=== PATIENT | female | born 1945 | race Caucasian/White ===

== ENCOUNTER 2021-07-19 06:09 | Inpatient (IN) | payer MEDICARE ==
[~2021-07-19] VITALS: Ht 167.6 cm; Wt 70.0 kg
--- NOTE | 2021-07-19 06:51 | PHYS DOC ---
Past Medical History Past Medical History: A-Fib, High Cholesterol, Hypertension, Hypothyroid Past Surgical History: No Surgical History General Adult EDM: Chief Complaint: MECHANICAL FALL HPI: HPI: Patient is a 76 year old female with history of A. fib, HTN, HLD, hypothyroidism who presents with a fall from [facility] facility. Reportedly got up to go to the restroom and became dizzy. Lost her balance and fell to her right. Fell onto her right hip and shoulder, where she is having the majority of her pain. No longer complains of dizziness. States she did not pass out prior to the fall or afterwards. She does not think she struck her head. Denies being on blood thinners. Denies confusion, headache, nausea/vomiting. Mild neck discomfort, no paresthesias or upper extremity weakness, although she is not entirely sure about her right arm due to pain at her shoulder. Med list shows she is on metoprolol tartrate 25 mg twice daily Review of Systems: Review of Systems: Constitutional: Denies fever or chills. [] Eyes: Denies change in visual acuity. [] HENT: Denies nasal congestion or sore throat. [] Respiratory: Denies cough or shortness of breath. [] Cardiovascular: Denies chest pain or edema. [] GI: Denies abdominal pain, nausea, vomiting, bloody stools or diarrhea. [] : Denies dysuria. [] Musculoskeletal: Reports right shoulder, right hip, and right rib pain. Denies back pain or joint pain. [] Integument: Denies rash. [] Neurologic: Reports now resolved dizziness. Denies headache, focal weakness or sensory changes. [] Endocrine: Denies polyuria or polydipsia. [] Lymphatic: Denies swollen glands. [] Psychiatric: Denies depression or anxiety. [] Heart Score: C/O Chest Pain: No Allergies: Allergies: Allergies Coded Allergies Type Severity Reaction Last Updated Verified Penicillins Allergy Intermediate 07/19/21 Yes Sulfa (Sulfonamide Antibiotics) Allergy Intermediate 07/19/21 Yes Physical Exam: PE: Constitutional: no acute distress, non-toxic appearance. [] HENT: Normocephalic, atraumatic, nares clear, no facial trauma, no blood in mouth. no malocclusion. Neck: mild midline ttp in cervical spine. Cardiovascular: Bradycardic, regular Lungs & Thorax: breath sounds present bilaterally Abdomen: mild diffuse abd tenderness to palpation (she blames this on full bladder) Skin: Warm, dry, no erythema, no rash. [] Back: No tenderness, no CVA tenderness. [] Extremities: Tenderness over proximal humerus, olecrannon on the right. some tenderness over greater trochanter on right. R shoulder with limited ROM and severe pain with PROM. R hip was able to be flexed and log-rolled without significant discomfort, although she was hesitant to move it. DP and radial pulses 2+ on right. Fingers/toes are warm, well perfused. Neurologic: Alert and oriented X 3. RUE dust handler strength, wrist extension, finger abduction is intact. Moving all other extremities with grossly normal strength. Current Patient Data: Vital Signs: Vital Signs Date Time Temp Pulse Resp B/P (MAP) Pulse Ox O2 Delivery O2 Flow Rate FiO2 07/19/21 06:19 98.1 44 20 145/64 (91) 98 Room Air 98.1 EKG: EKG: Sinus bradycardia. Rate 44. [] Radiology/Procedures: Radiology/Procedures: [] Impression: [facility] [address] [place] [address] IMAGING REPORT Signed PATIENT: MARK HERNANDEZ ACCOUNT: [id number] : 1945 LOCATION: ER AGE: 76 SEX: F EXAM STATUS: REG ER ORD. PHYSICIAN: POLINA URIBE MD REASON: fall, right rib pain, abd pain, pelvic pain, r shoulder PROCEDURE: CT CHEST ABD PELVIS W/CONTRAST EXAMINATION: CT CHEST+ABD+PELVIS W CLINICAL HISTORY: Fall, right rib pain, abd pain, pelvic pain, right shoulder pain TECHNIQUE: CT of the chest performed with IV contrast, scanning from the thoracic inlet to the upper abdomen. CT of the abdomen and pelvis performed with IV contrast, scanning from just above the dome of the diaphragm to the symphysis pubis. CT Dose Reduction Employed: One or more of the following individualized dose reduction techniques were utilized for this examination: 1. Automated exposure control 2. Adjustment of the mA and/or kV according to patient size 3. Use of iterative reconstruction technique. COMPARISON: None FINDINGS: CHEST: Lung Parenchyma and Pleura: Small left pleural effusion with mild basilar calcified pleural plaques. Trace right pleural effusion. Overlying airspace disease, greater on the left and likely related to atelectasis. Peripherally predominant reticulation in the right greater than left lungs. Lower Neck, Mediastinum, and Heart: Thyroid gland not visualized. Enlarged right paratracheal lymph nodes measuring up to 15 mm in short axis. Several additional prominent but nonenlarged mediastinal lymph nodes. Thoracic aorta within normal limits. Questionable eccentric thrombus versus ill-defined hilar density abutting the vasculature in the region of the left lower lobe pulmonary artery near its branch point. Mild cardiomegaly. Bones and Soft Tissues: Mild compression deformity in the T8 superior endplate. Remote anterolateral left fifth-seventh rib fracture deformities. ABDOMEN/PELVIS: Liver: Unremarkable. Biliary: Moderately distended gallbladder. Spleen: Unremarkable. Pancreas: Unremarkable. Adrenals: Unremarkable. Kidneys: Bilateral renal cortical atrophy. GI tract: No bowel dilation or definite wall thickening. Moderate colonic diverticulosis without evidence of acute diverticulitis. Appendix within normal limits. Moderate hiatal hernia. Vasculature: Arterial atherosclerotic calcification without aneurysm. Pelvis: Minimally filled urinary bladder. Uterus and adnexa unremarkable on limited evaluation. 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 Multilevel degenerative changes in the lumbar spine. Partially visualized subcutaneous stippled densities in the anterior left thigh, nonspecific. IMPRESSION: CHEST: Questionable chronic thrombus in the left lower lobe pulmonary artery versus ill-defined perivascular hilar density as described, correlate clinically. Small left pleural effusion with basilar calcified pleural plaques, possibly a chronic effusion. Trace right pleural effusion. Enlarged mediastinal lymph nodes, nonspecific. Mild T8 compression deformity, possibly remote but cannot exclude an acute compression fracture. Nonemergent/outpatient MRI could be obtained for further evaluation if indicated. ABDOMEN/PELVIS: No evidence of acute abdominopelvic abnormality. Moderate to marked degenerative changes left hip with avascular necrosis and mild articular surface collapse in the left femoral head. Electronically signed by: Bridger Angeles DO (07/19/2021 8:57 AM) [facility] DICTATED and SIGNED BY: BRIDGER ANGELES DO DATE: 07/19/[id number] [facility] [address] [place] [address] IMAGING REPORT Signed PATIENT: MARK HERNANDEZ ACCOUNT: [id number] : 1945 LOCATION: ER AGE: 76 SEX: F EXAM STATUS: PRE ER ORD. PHYSICIAN: POLINA URIBE MD REASON: fall PROCEDURE: CT HEAD AND CERVICAL SPINE WO EXAMINATION: CT HEAD AND C-SPINE WO CLINICAL HISTORY: Fall. TECHNIQUE: Serial axial images without IV contrast were obtained from the vertex to the foramen magnum. Artificial intelligence software analysis also performed utilizing [employer]. CT of the cervical spine without IV contrast. Spiral, high resolution axial images were obtained from the skull base to the cervicothoracic junction with sagittal and coronal planar reconstructions. CT Dose Reduction Employed: One or more of the following individualized dose reduction techniques were utilized for this examination: 1. Automated exposure control 2. Adjustment of the mA and/or kV according to patient size 3. Use of iterative reconstruction technique. COMPARISON: None FINDINGS: BRAIN: Acute Change: No evidence of an acute contusion or other acute parenchymal process. Hemorrhage: No evidence of acute intracranial hemorrhage. Mass Lesion/Mass Effect: No evidence of intracranial mass or extraaxial fluid collection. No significant mass effect. Parenchyma: Mild generalized volume loss. Parenchyma otherwise within normal limits for age. Ventricles: Ventricles within normal limits for age. Normal variant persistent cavum septum pellucidum. Paranasal Sinuses and Skull Base: Minimal secretions in the right maxillary sinus. No evidence of acute calvarial fracture. C-SPINE: Alignment: Normal anatomic alignment. Osseous Structures: No evidence of acute fracture or spondylolisthesis. Degenerative Changes: Mild to moderate multilevel degenerative disc disease, greatest in the mid to lower cervical spine. Mild to moderate multilevel neural foraminal narrowing and facet arthropathy. No evidence of high-grade osseous spinal stenosis. Cervical Soft Tissues: No prevertebral soft tissue swelling. Vascular calcifications. IMPRESSION: BRAIN: No evidence of acute intracranial abnormality. C-SPINE: No evidence of acute osseous abnormality involving the cervical spine. Multilevel degenerative findings as described. Electronically signed by: Bridger Angeles DO (07/19/2021 8:18 AM) [facility] DICTATED and SIGNED BY: BRIDGER ANGELES DO DATE: 07/19/[id number] [facility] [address] [place] [address] IMAGING REPORT Signed PATIENT: MARK HERNANDEZ ACCOUNT: [id number] : 1945 LOCATION: ER AGE: 76 SEX: F EXAM STATUS: REG ER ORD. PHYSICIAN: POLINA URIBE MD REASON: fall, right shoulder pain PROCEDURE: HIP LEFT 2V WITH PELVIS EXAMINATION: XR BILATERAL HIP (WITH OR WITHOUT PELVIS) LEFT 2 VIEWS CLINICAL HISTORY: Fall, right hip pain. TECHNIQUE: XR BILATERAL HIP (WITH OR WITHOUT PELVIS) LEFT 2 VIEWS COMPARISON: CT chest/abdomen/pelvis 07/19/2021 FINDINGS/ IMPRESSION: No evidence of acute fracture. Moderate to marked degenerative changes in the left hip with avascular necrosis and minimal articular surface collapse in the femoral head, better appreciated on comparison CT. Minimal degenerative changes right hip. Pubic symphysis and SI joints maintained. Probable partially calcified lymph nodes in the pelvis and partially visualized heterogeneous calcification in the left thigh, better appreciated on comparison CT. Electronically signed by: Bridger Angeles DO (07/19/2021 9:25 AM) [facility] DICTATED and SIGNED BY: BRIDGER ANGELES DO DATE: 07/19/[id number] [facility] [address] [place] [address] IMAGING REPORT Signed PATIENT: MARK HERNANDEZ ACCOUNT: [id number] : 1945 LOCATION: ER AGE: 76 SEX: F EXAM STATUS: REG ER ORD. PHYSICIAN: POLINA URIBE MD REASON: fall, right shoulder pain PROCEDURE: SHOULDER 2+V RIGHT EXAMINATION: XR SHOULDER_RIGHT 2+ VIEWS CLINICAL HISTORY: Fall right shoulder pain. TECHNIQUE: XR SHOULDER_RIGHT 2+ VIEWS COMPARISON: None FINDINGS/ IMPRESSION: Slightly oblique fracture through the proximal humeral metadiaphysis with foreshortening and apex anteromedial angulation. Humeral head appears superiorly dislocated relative to the glenoid on AP view but is less convincing on the scapular Y view. Mild to moderate hypertrophic acromioclavicular degenerative changes. Electronically signed by: Bridger Angeles DO (07/19/2021 9:20 AM) [facility] DICTATED and SIGNED BY: BRIDGER ANGELES DO DATE: 07/19/[id number] [facility] [address] [place] [address] IMAGING REPORT Signed PATIENT: MARK HERNANDEZ ACCOUNT: [id number] : 1945 LOCATION: ER AGE: 76 SEX: F EXAM STATUS: REG ER ORD. PHYSICIAN: POLINA URIBE MD REASON: fall, elbow pain PROCEDURE: ELBOW RIGHT 3V EXAMINATION: XR ELBOW COMPLETE_RIGHT 3+ VIEWS CLINICAL HISTORY: Fall, elbow pain. TECHNIQUE: XR ELBOW COMPLETE_RIGHT 3+ VIEWS COMPARISON: None FINDINGS/ IMPRESSION: Joint spaces and alignment maintained. No acute fracture. No joint effusion. Soft tissue swelling along the dorsal aspect of the proximal forearm. Electronically signed by: Bridger Angeles DO (07/19/2021 9:21 AM) [facility] DICTATED and SIGNED BY: BRIDGER ANGELES DO DATE: 07/19/[id number] 0 Course & Med Decision Making: Course & Med Decision Making Pertinent Labs and Imaging studies reviewed. (See chart for details) Patient is a 76-year-old female who presents from a nursing facility after a fall resulting from a dizzy spell. On arrival is in sinus bradycardia, rate in the 40s, but other vital signs are stable. She is on metoprolol which may be contributing to her bradycardia, and her potassium was found to be slightly low. This was repleted. Extensive traumatic work-up revealed only a right proximal humerus fracture. Patient was placed in sling. Orthopedics was consulted routinely, although very likely non-operative. Given her symptomatic bradycardia patient was admitted for further management. Dragon Disclaimer: Dragon Disclaimer: This electronic medical record was generated, in whole or in part, using a voice recognition dictation system. Departure Departure Impression: Primary Impression: Proximal humerus fracture Additional Impressions: Symptomatic bradycardia Hypokalemia Disposition: 09 ADMITTED INPATIENT Admitting Physician: Madi. Newton Condition: STABLE POLINA URIBE MD Jul 19, 2021 06:51
[2021-07-19 07:21] LABS: BASO # 0.1 x10^3/uL (0.0-0.2); BASO % 1 % (0-3); CALCIUM 7.5 mg/dL (8.5-10.1); CREATININE 1.1 mg/dL (0.6-1.0); EOS # 0.3 x10^3/uL (0.0-0.7); EOS % 5 % (0-3); GFR 48.3; HEMATOCRIT 36.1 % (36.0-47.0); HEMOGLOBIN 11.6 g/dL (12.0-15.5); LYMPH % 15 % (24-48); MEAN CORPUSCULAR HEMOGLOBIN 27 pg (25-35); MEAN CORPUSCULAR HGB CONC 32 g/dL (31-37); MEAN CORPUSCULAR VOLUME 84 fL (79-100); MONO # 0.5 x10^3/uL (0.0-1.1); MONO % 7 % (0-9); NEUT % 73 % (31-73); PLATELET COUNT 324 x10^3/uL (140-400); POTASSIUM 3.3 mmol/L (3.5-5.1); RED BLOOD COUNT 4.28 x10^6/uL (3.50-5.40); RED CELL DISTRIBUTION WIDTH 20.2 % (11.5-14.5); WHITE BLOOD COUNT 6.9 x10^3/uL (4.0-11.0)
[2021-07-19] MEDS ORDERED: IOHEXOL 300 MG/ML 100ML VIAL. IV ONE (07:30)
[2021-07-19] MEDS ORDERED: MORPHINE SULFATE 2 MG/ML INJ. IVP ONE ×2 (07:30→08:30)
[2021-07-19] MEDS ORDERED: CONTRAST GIVEN. MC PRN (07:30)
--- NOTE | 2021-07-19 08:20 | RAD ---
EXAMINATION: CT HEAD AND C-SPINE WO CLINICAL HISTORY: Fall. TECHNIQUE: Serial axial images without IV contrast were obtained from the vertex to the foramen magnum. [employer] software analysis also performed utilizing [employer]. CT of the cervical spine without IV contrast. Spiral, high resolution axial images were obtained from the skull base to the cervicothoracic junction with sagittal and coronal planar reconstructions. CT Dose Reduction Employed: One or more of the following individualized dose reduction techniques wer e utilized for this examination: 1. Automated exposure control 2. Adjustment of the mA and/or kV ac cording to patient size 3. Use of iterative reconstruction technique. COMPARISON: None FINDINGS: BRAIN: Acute Change: No evidence of an acute contusion or other acute parenchymal process. Hemorrhage: No evidence of acute intracranial hemorrhage. Mass Lesion/Mass Effect: No evidence of intracranial mass or extraaxial fluid collection. No signific ant mass effect. Parenchyma: Mild generalized volume loss. Parenchyma otherwise within normal limits for age. Ventricles: Ventricles within normal limits for age. Normal variant persistent cavum septum pellucidu m. Paranasal Sinuses and Skull Base: Minimal secretions in the right maxillary sinus. No evidence of acu te calvarial fracture. C-SPINE: Alignment: Normal anatomic alignment. Osseous Structures: No evidence of acute fracture or spondylolisthesis. Degenerative Changes: Mild to moderate multilevel degenerative disc disease, greatest in the mid to l ower cervical spine. Mild to moderate multilevel neural foraminal narrowing and facet arthropathy. No evidence of high-grade osseous spinal stenosis. Cervical Soft Tissues: No prevertebral soft tissue swelling. Vascular calcifications. IMPRESSION: BRAIN: No evidence of acute intracranial abnormality. C-SPINE: No evidence of acute osseous abnormality involving the cervical spine. Multilevel degenerative findings as described. Electronically signed by: Bridger Quiroz DO (07/19/2021 8:18 AM) [facility]
[2021-07-19] MEDS: POTASSIUM CHLORIDE 10MEQ 100 ML IV SCH ×3 (08:53→19:09)
--- NOTE | 2021-07-19 09:00 | RAD ---
EXAMINATION: CT CHEST+ABD+PELVIS W CLINICAL HISTORY: Fall, right rib pain, abd pain, pelvic pain, right shoulder pain TECHNIQUE: CT of the chest performed with IV contrast, scanning from the thoracic inlet to the upper abdomen. CT of the abdomen and pelvis performed with IV contrast, scanning from just above the dome o f the diaphragm to the symphysis pubis. CT Dose Reduction Employed: One or more of the following individualized dose reduction techniques wer e utilized for this examination: 1. Automated exposure control 2. Adjustment of the mA and/or kV ac cording to patient size 3. Use of iterative reconstruction technique. COMPARISON: None FINDINGS: CHEST: Lung Parenchyma and Pleura: Small left pleural effusion with mild basilar calcified pleural plaques. Trace right pleural effusion. Overlying airspace disease, greater on the left and likely related to a telectasis. Peripherally predominant reticulation in the right greater than left lungs. Lower Neck, Mediastinum, and Heart: Thyroid gland not visualized. Enlarged right paratracheal lymph n odes measuring up to 15 mm in short axis. Several additional prominent but nonenlarged mediastinal ly mph nodes. Thoracic aorta within normal limits. Questionable eccentric thrombus versus ill-defined hi lar density abutting the vasculature in the region of the left lower lobe pulmonary artery near its b ranch point. Mild cardiomegaly. Bones and Soft Tissues: Mild compression deformity in the T8 superior endplate. Remote anterolateral left fifth-seventh rib fracture deformities. ABDOMEN/PELVIS: Liver: Unremarkable. Biliary: Moderately distended gallbladder. Spleen: Unremarkable. Pancreas: Unremarkable. Adrenals: Unremarkable. Kidneys: Bilateral renal cortical atrophy. GI tract: No bowel dilation or definite wall thickening. Moderate colonic diverticulosis without evid ence of acute diverticulitis. Appendix within normal limits. Moderate hiatal hernia. Vasculature: Arterial atherosclerotic calcification without aneurysm. Pelvis: Minimally filled urinary bladder. Uterus and adnexa unremarkable on limited evaluation. Bones/Soft Tissues: Moderate to marked degenerative changes in the left hip with avascular necrosis i n the left femoral head and associated articular surface collapse measuring up to 1-2 mm. Multilevel degenerative changes in the lumbar spine. Partially visualized subcutaneous stippled densities in the anterior left thigh, nonspecific. IMPRESSION: CHEST: Questionable chronic thrombus in the left lower lobe pulmonary artery versus ill-defined perivascular hilar density as described, correlate clinically. Small left pleural effusion with basilar calcified pleural plaques, possibly a chronic effusion. Trac e right pleural effusion. Enlarged mediastinal lymph nodes, nonspecific. Mild T8 compression deformity, possibly remote but cannot exclude an acute compression fracture. None mergent/outpatient MRI could be obtained for further evaluation if indicated. ABDOMEN/PELVIS: No evidence of acute abdominopelvic abnormality. Moderate to marked degenerative changes left hip with avascular necrosis and mild articular surface c ollapse in the left femoral head. Electronically signed by: Bridger Quiroz DO (07/19/2021 8:57 AM) [facility]
[2021-07-19 09:23] LABS: BILIRUBIN,URINE NEGATIVE (NEG); CLARITY,URINE CLOUDY; COLOR,URINE YELLOW; NITRITE,URINE NEGATIVE (NEG); PROTEIN,URINE 100 mg/dL (NEG-TRACE); UROBILINOGEN,URINE 0.2 mg/dL (0.2 mg/dL)
--- NOTE | 2021-07-19 09:23 | RAD ---
EXAMINATION: XR SHOULDER_RIGHT 2+ VIEWS CLINICAL HISTORY: Fall right shoulder pain. TECHNIQUE: XR SHOULDER_RIGHT 2+ VIEWS COMPARISON: None FINDINGS/ IMPRESSION: Slightly oblique fracture through the proximal humeral metadiaphysis with foreshortening and apex ant eromedial angulation. Humeral head appears superiorly dislocated relative to the glenoid on AP view b ut is less convincing on the scapular Y view. Mild to moderate hypertrophic acromioclavicular degener ative changes. Electronically signed by: Bridger Quiroz DO (07/19/2021 9:20 AM) [facility]
--- NOTE | 2021-07-19 09:24 | RAD ---
EXAMINATION: XR ELBOW COMPLETE_RIGHT 3+ VIEWS CLINICAL HISTORY: Fall, elbow pain. TECHNIQUE: XR ELBOW COMPLETE_RIGHT 3+ VIEWS COMPARISON: None FINDINGS/ IMPRESSION: Joint spaces and alignment maintained. No acute fracture. No joint effusion. Soft tissue swelling isacc ng the dorsal aspect of the proximal forearm. Electronically signed by: Bridger Quiroz DO (07/19/2021 9:21 AM) [facility]
--- NOTE | 2021-07-19 09:27 | RAD ---
EXAMINATION: XR BILATERAL HIP (WITH OR WITHOUT PELVIS) LEFT 2 VIEWS CLINICAL HISTORY: Fall, right hip pain. TECHNIQUE: XR BILATERAL HIP (WITH OR WITHOUT PELVIS) LEFT 2 VIEWS COMPARISON: CT chest/abdomen/pelvis 07/19/2021 FINDINGS/ IMPRESSION: No evidence of acute fracture. Moderate to marked degenerative changes in the left hip with avascular necrosis and minimal articular surface collapse in the femoral head, better appreciated on compariso n CT. Minimal degenerative changes right hip. Pubic symphysis and SI joints maintained. Probable part ially calcified lymph nodes in the pelvis and partially visualized heterogeneous calcification in the left thigh, better appreciated on comparison CT. Electronically signed by: Bridger Quiroz DO (07/19/2021 9:25 AM) [facility]
[2021-07-19] MEDS ORDERED: ONDANSETRON PF 4 MG/2 ML VIAL. IVP PRN (09:30)
[2021-07-19] MEDS ORDERED: MORPHINE SULFATE 2 MG/ML INJ. IVP PRN (09:45)
[2021-07-19] MEDS: MORPHINE SULFATE 2 MG/ML INJ. IVP PRN ×2 (09:56→22:30)
[2021-07-19 09:57] LABS: WBC,URINE >40 /HPF (0-4)
[2021-07-19 09:58] LABS: BACTERIA,URINE MANY /HPF (0-FEW)
[2021-07-19 10:30] VITALS: BP 134/62
[2021-07-19 11:15] LABS: ANISOCYTOSIS PRESENT; PLT ESTIMATE ADEQUATE (ADEQUATE)
[2021-07-19] MEDS: ACETAMINOPHEN 325 MG TABLET. PO PRN (12:04)
[2021-07-19 14:57] VITALS: BP 113/56
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
[2021-07-19] MEDS: oxyCODONE/APAP 5/325 1 TAB TABLET PO PRN ×2 (16:56→20:20)
[2021-07-19] MEDS ORDERED: POLY2500 PO (17:22)
[2021-07-19] MEDS ORDERED: SERT50TA PO (17:22)
[2021-07-19] MEDS ORDERED: ATOR20TA58 PO (17:22)
[2021-07-19] MEDS ORDERED: GABA300C18 PO (17:22)
[2021-07-19] MEDS ORDERED: LACT20SO PO (17:22)
[2021-07-19] MEDS ORDERED: METO25TA4 PO (17:22)
[2021-07-19] MEDS ORDERED: LEVO125T5 PO (17:22)
[2021-07-19] MEDS ORDERED: TRAZ-118 PO (17:22)
[2021-07-19] MEDS ORDERED: MEGE400O4 PO (17:22)
[2021-07-19] MEDS ORDERED: AMIO200T53 PO (17:22)
[2021-07-19] MEDS ORDERED: CLINDAMYCIN 900MG PREMIX 50 ML IV PRN (18:00)
[2021-07-19 19:49] VITALS: BP 138/61
--- NOTE | 2021-07-19 19:55 | EKG ---
[facility] [address] [place] [address] Test Date: 2021-07-19 Test Time: 08:13:59 Pat Name: MARK HERNANDEZ Department: Room: [facility] Gender: F Rand Tacker: : 1945 Requested By: POLINA URIBE Order Number: [id number] Reading MD: Isiah Sheikh Measurements Intervals [place] Rate: 44 P: 49 NE: 170 QRS: 28 QRSD: 86 T: 41 QT: 612 QTc: 523 Interpretive Statements SINUS BRADYCARDIA PROLONGED QT Electronically Signed On 07-20-2021 10:14:01 [employer] by Isiah Sheikh
[2021-07-19] MEDS ORDERED: LACTULOSE 20 GM/30 ML SOLUTION. PO PRN (20:00)
[2021-07-19] MEDS: GABAPENTIN 300 MG CAPSULE. PO SCH (20:18)
[2021-07-19] MEDS: ATORVASTATIN CALCIUM 20 MG TABLET PO SCH (20:19)
[2021-07-19] MEDS: traZODone 50 MG TABLET. PO SCH (20:19)
[2021-07-19 22:35] VITALS: BP 103/51
[2021-07-20] VITALS (12 sets, daily range): BP systolic 91–127; BP diastolic 46–60
[2021-07-20] MEDS: LEVOTHYROXINE 125 MCG TABLET PO SCH (03:09)
[2021-07-20] MEDS: oxyCODONE/APAP 5/325 1 TAB TABLET PO PRN ×2 (03:10→21:08)
[2021-07-20] MEDS ORDERED: ePHEDrine PF IN SALINE 50 MG/10 ML SYRINGE. IV ONE (07:28)
[2021-07-20] MEDS ORDERED: PHENYLEPHRINE in 0.9% NACL PF 1 MG/10 ML SYRINGE. IV ONE ×2 (07:28→11:54)
[2021-07-20] MEDS ORDERED: DEXAMETHASONE SOD PHOS 4 MG/ML VIAL ONE (07:28)
[2021-07-20] MEDS ORDERED: LIDOCAINE 2% PF 5 ML VIAL. ONE (07:28)
[2021-07-20] MEDS ORDERED: ONDANSETRON PF 4 MG/2 ML VIAL. ONE ×2 (07:28)
[2021-07-20] MEDS ORDERED: ROCURONIUM 50 MG/5 ML VIAL. ONE (07:29)
[2021-07-20] MEDS ORDERED: fentaNYL PF VIAL 100 MCG/2 ML VIAL ONE (07:31)
[2021-07-20] MEDS ORDERED: ROPIVacaine 0.5% PF 20 ML VIAL. ONE (08:01)
[2021-07-20] MEDS ORDERED: MIDAZOLAM HCL/PF 2 MG/2 ML VIAL. ONE (08:01)
[2021-07-20] MEDS ORDERED: PHENYLEPHRINE 10 MG/ML VIAL. ONE (08:44)
[2021-07-20] MEDS: GABAPENTIN 300 MG CAPSULE. PO SCH ×3 (08:45→20:57)
[2021-07-20] MEDS: SERTRALINE 50 MG TABLET. PO SCH (09:00)
[2021-07-20] MEDS: MEGESTROL 400 MG/10 ML ORAL.SUSP. PO SCH (09:00)
[2021-07-20] MEDS ORDERED: NEOSTIGMINE METHYLSULFATE 5 MG/5 ML SYRINGE. ONE (09:15)
[2021-07-20] MEDS ORDERED: SEVOFLURANE 61 TO 120 MINUTES. IH ONE (09:20)
--- NOTE | 2021-07-20 09:53 | PN ---
DATE: 07/20/2021 SUBJECTIVE: The patient was admitted yesterday after she sustained a mechanical fall at [facility], sustaining right proximal humeral fracture. She is apparently scheduled for a definitive surgical treatment as recommended by Dr. Bee. OBJECTIVE: GENERAL: On examining her this morning, she looked well and was clearly in no apparent respiratory distress. No pallor, jaundice, cyanosis. No thyromegaly. No jugular venous distention. No limb edema. VITAL SIGNS: Her heart rate was 48, blood pressure was 122/58, temperature was 97.6, respiratory rate was 18 and oxygen saturation was 94%. HEAD, EYES, EARS, NOSE, AND THROAT: Normocephalic, atraumatic. NECK: Supple. HEART: Showed normal first and second heart sounds. No gallop, rub or murmur. CHEST: Clear to auscultation, no crepitation or rhonchi. ABDOMEN: Distended, soft, nontender. NEUROLOGIC: She is awake, alert, responding appropriately. Cranial nerves intact. She moves left upper and bilateral lower extremities without difficulty. Her right upper extremity was in a sling. 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 Meanwhile, we continued all other medication. Given that she probably has also UTI, I would start her also on ceftriaxone. I will check her H and H and BMP after the surgery and again tomorrow. OSKAR MORALES: Meeta TID: [id number]
[2021-07-20] MEDS ORDERED: VANCOMYCIN 1 GM VIAL. ONE (10:03)
--- NOTE | 2021-07-20 10:10 | HP ---
DATE OF SERVICE: 07/20/2021 ADMIT DATE: 07/19/2021 HISTORY OF PRESENT ILLNESS: The patient is a 76-year-old female patient, resident at [facility] in [place] who fell after getting up to go to the restroom and became dizzy, lost her balance and fell onto her right hip and shoulder where she develops severe pain. Therefore, the patient was brought to the Emergency Room of [facility] for further evaluation. At the time, she arrived she stated that she did not pass out prior to the fall or afterward, she does not think that she struck her head. Denied being on blood thinners. Denied any confusion, headache, nausea, vomiting. Did complain of mild neck discomfort. No paresthesias or upper extremity weakness, although she is not entirely sure about her right arm due to pain in her shoulder. She was found to be bradycardic and was found to be on metoprolol 25 mg twice a day as well as amiodarone and both were held. She was extensively investigated in the Emergency Room, has had lab work as well as imaging studies. Her lab work showed that she has mild hypokalemia, but otherwise her blood count was unremarkable. She did have moderate amount of leukocyte esterase and more than 40 wbc's and many bacteria. Her coronavirus by rapid testing was negative. X-ray of her shoulder showed slight oblique fracture through the proximal humerus metadiaphysis for shortening and apex retromedial angulation of the humeral head appears superiorly dislocated relative to the glenoid on the AP view, but is less convincing on the scapular Y view, mild to moderate hypertrophic acromioclavicular degenerative changes. The patient was admitted. Her other x-rays were unremarkable, was admitted for pain management and to consult the orthopedic surgeon. The patient is a 76-year-old right-handed female patient who moved recently from [place], [place] and was living in a alf facility in [place]. She apparently has a mass removed from her lung surgery, but that turned out to be benign. Since then, she has been recuperating in the facility and most recently was at [facility] for recurrence of left sided pleural effusion; however, no surgical intervention was required and has been admitted recently to [facility] where she has been there for rehabilitation before she can go back to her Independent Living Facility. PAST MEDICAL HISTORY: Significant for atrial fibrillation, interstitial cystitis, hypothyroidism, parathyroidectomy with removal of 2/4 parathyroid glands, has hypertension, hyperlipidemia. PAST SURGICAL HISTORY: Significant for thyroidectomy and partial parathyroidectomy, lung mass removal. FAMILY HISTORY: Her father had emphysema. Her mother had cardiac disease and nasal sinus cancer. SOCIAL HISTORY: She is , has a son who lives in [place]. She used to drink alcohol daily. Does not smoke or drink alcohol anymore. REVIEW OF SYSTEMS: As per history of present illness. PHYSICAL EXAMINATION: GENERAL: On arrival to the Emergency Room, she was somewhat pale, but no jaundice, cyanosis, no lymphadenopathy, no thyromegaly, no jugular venous distention. No limb edema. VITAL SIGNS: Her heart rate was 44, blood pressure was 145/54, temperature was 98.1, respiratory rate 20, and oxygen saturation was 98% on room air. HEAD, EYES, EARS, NOSE, AND THROAT: Normocephalic, atraumatic. NECK: Supple. HEART: Showed normal first and second heart sounds. No gallop, rub or murmur. CHEST: Shows central trachea, equal bilateral chest expansion, air entry, vesicular breath sounds, no crepitation or rhonchi. ABDOMEN: Distended, soft, nontender. NEUROLOGIC: She is awake, alert, responding appropriately. All her cranial nerves intact. She moves her left upper and bilateral extremities without difficulty. She has marked tenderness over the proximal humerus and she also has some tenderness over the right olecranon and greater trochanter. Her right shoulder has limited range of movement in severe pain. On passive range of movement, right hip was able to be fixed, flexed and log rolled without significant discomfort, although she was hesitant to move. LABORATORY DATA: While in the Emergency Room, she has had lab work and imaging studies. Her lab work showed that her white cell count was 6900, hemoglobin 11.6, hematocrit 36, MCV 84 and platelet count of 324,000. Serum sodium was 139, potassium 3.3, chloride 108, bicarbonate 23, anion gap of 8, BUN 9, creatinine 1.1. Estimated GFR was 48 mL per minute. Her glucose was 84, calcium was 7.5 and magnesium 2. Her urinalysis showed the urine was yellow, cloudy with a pH of 6, specific gravity of 1.025, large amount of protein. The urine was negative for glucose and ketones, large amount of blood, negative for nitrite and bilirubin, moderate amount of leukocyte esterase, 6-10 rbc's, more than 40 wbc's and many bacteria. Her x-ray of the hip and pelvis showed no evidence of acute fracture, moderate to marked degenerative changes of the left hip with avascular necrosis and minimal articular surface collapse in the femoral head better appreciated on comparison. CT minimal degenerative changes of the right hip, pubic symphysis and sacroiliac joints maintained probable partial calcified lymph nodes in the pelvis and partial visualized heterogenous calcification of the left eye better appreciated on the comparison. CT scan of the chest, abdomen and pelvis showed questionable chronic thrombus in the left lower lobe, pulmonary artery versus ill-defined perivascular higher density as described. She has small left pleural effusion and basilar calcified pleural plaques, possibly a chronic effusion, trace right pleural effusion, enlarged mediastinal lymph nodes, nonspecific mild T8 compression deformity, possibly remote but cannot exclude an acute compression fracture. Nonemergent outpatient MRI could be obtained for further evaluation if indicated. The CT scan of the abdomen and pelvis showed no evidence of acute abdominopelvic abnormality, moderate to marked degenerative changes of the left hip with avascular necrosis and mild articular surface collapse in the left femoral head. CT scan of the head and neck showed no evidence of acute intracranial abnormality. CT scan of the C-spine, no evidence of acute osseous abnormality involving the cervical spine. The patient has multilevel degenerative findings. X-ray of her right shoulder showed that the patient has slightly oblique fracture to the proximal humeral metadiaphysis with foreshortening and apex anteromedial angulation and humeral head appears to be dislocated relative to the glenoid on anteroposterior view, but is less convincing on the scapular Y view, mild to moderate hypertrophic acromioclavicular degenerative changes. X-ray of the right elbow showed joint spaces and alignment is maintained with no acute fracture and no joint effusion, soft tissue swelling along the dorsal aspect of the proximal forearm. So, the patient was admitted with mechanical fall and a fracture of the right humerus that is closed. The patient was admitted for pain management and to consult the orthopedic surgeon for definitive surgical treatment. DIDIER DR: Meeta TID: [id number]
[2021-07-20] MEDS ORDERED: SEVOFLURANE > 120 MINUTES. IH ONE (10:27)
--- NOTE | 2021-07-20 10:56 | PDOC4 ---
Operative Note Operative Note Date of Procedure: July 20, 2021 Pre-Op Diagnosis: * Two-part displaced fracture of surgical neck of right humerus, initial encounter for closed fracture S42.221A * Age-related osteoporosis with current pathological fracture, right humerus, initial encounter for fracture M80.021A Post-Op Diagnosis: * Two-part displaced fracture of surgical neck of right humerus, initial encount er for closed fracture S42.221A * Age-related osteoporosis with current pathological fracture, right humerus, initial encounter for fracture M80.021A Procedure: open treatment proximal humeral surgical neck fracture with internal fixation CPT 93730 Surgeon: Ileana Bee MD Redevelopment Manager: JUSTIN Alas Anesthesia: General EBL: 100 mL Specimens Obtained: none Complications: none Drains: none Indications for Procedure: This 76 year old right-handed woman has a displaced 2 part fracture of the proximal humerus. Angulation is 35 degrees. She is in severe pain with the fracture, and having severe pain difficulty even resting in bed. The fracture is closed. A fall from a standing height should not cause this fracture, so her bone is abnormal, likely age related osteoporosis causing the pathologic fracture. She has questionable weakness in the radial nerve distribution, and she does report some numbness in the fingers. I do not suspect any major radial nerve injury but there could be hematoma or swelling, and my recommendation is careful surgical exposure and reduction and fixation of the fracture, and that observation of the radial nerve. I discussed with her options for treatment. I do recommend fracture surgery in her situation. The proximal humerus fracture is displaced enough to warrant reduction and fixation. I think she would benefit both from a pain standpoint and from recovery and return to function. I explained we could attempt nonoperative treatment but it likely be more painful and there is a risk of nonunion or malunion. I discussed with her the risks of surgery such as neurovascular injury, malunion or nonunion, failure of the hardware and need for revision surgery, bleeding, scarring, infection, or other potential surgical or anesthetic complications. I explained that her bone is abnormal because a fall from a standing height should not cause a humerus fracture, so the risk of hardware failure is increased. All of her questions about surgery were answered and she desires to proceed with surgery. Written consent was obtained. Procedure in Detail: The patient was identified in the preoperative holding area. The correct right shoulder was marked by me. The patient was taken to the operating room where general anesthesia was used. The patient was positioned supine on the operating table. Preoperative antibiotics were given intravenously. A timeout procedure was performed. The limb was prepared in sterile fashion with ChloraPrep. Sterile drapes were applied. The large image intensifier was positioned at the head of the bed, and used throughout the procedure, and all of the images were interpreted intraoperatively by me. The deltopectoral approach was used. A 10 blade scalpel was used for sharp dissection. The deltopectoral interval was identified. The cephalic vein was retracted laterally. A Kobel retractor was placed, with care made not to injure the musculocutaneous nerve or the axillary nerve. The frature was easily identified, displaced and unstable. Bone quality is poor, and additional comminution of the shaft was difficult to avoid during man ipulation and reduction. Fracture hematoma was cleared with irrigation and a rongeurs. K wires were used to stabilize the fracture reduction, and the large image intensifier was used to confirm the reduction. Several attempts were required to get a satisfactory reduction. I asked anesthesia to give additional muscle relaxation to help with fracture reduction. Although I believe I had the fracture anatomically reduced at one point, the bone quality was very poor so the reduction was not able to be maintained perfectly, and the K wires used for stabilization would not hold the reduction. A Synthes locking periarticular proximal humerus plate was applied. K wires and a nonlocking screw were used, for preliminary plate application, and the plate was repositioned until satisfactory positioning was achieved on the image intensifier. Initially I used a single locking screw through the oval hole, and ultimately placed a 2nd nonlocking screw because of the poor fixation, and I adjusted the plate position. The proximal cluster of the plate was used for initial nonlocking screws, followed by locking screws, using the drill guide, and after predrilling. Measurements were taken using a depth gauge. I made care not to plunge into the joint with the drill bit, and each of the screws were placed about 6 mm short of the subchondral bone and articular surface to avoid any joint penetration or chloe nt impingement. The remaining locking holes in the shaft portion of the plate were secured with locking screws, after predrilling with the locking guide. Final images in AP and lateral planes showed satisfactory reduction and fixation. Ultimately the fracture reduction is in slight varus but much improved from the preoperative malalignment, and is now stable moving as a unit, is a cceptably aligned, and is stable for bone healing. Copious saline irrigation was used. Outer gloves were changed. Betadine lavage was used followed by copious saline irrigation. After final thorough saline irrigation the incision was closed in layers. 1 g of powdered vancomycin was placed in the deep closure. The deltopectoral fascia was repaired with #0 Vicryl sutures. My embroidery assistant closed the subcutaneous tissues with 2-0 Vicryl. She closed the skin with #3-0 Monocryl STRATAFIX. She applied a bulky sterile dressing including Xeroform. Needle and sponge counts were correct. There were no apparent complications. ILEANA BEE MD Jul 20, 2021 10:56
[2021-07-20] MEDS ORDERED: fentaNYL PF VIAL 100 MCG/2 ML VIAL IVP PRN ×2 (11:00)
[2021-07-20] MEDS ORDERED: HYDROmorphone 2 MG/ML INJ. IVP PRN (11:00)
[2021-07-20] MEDS ORDERED: IV RINGERS,LACTATED 1000ML 1,000 ML IV SCH (11:00)
[2021-07-20] MEDS ORDERED: PROCHLORPERAZINE 10 MG/2 ML VIAL. IVP PRN (11:00)
[2021-07-20] MEDS ORDERED: POLYETHYLENE GLYCOL 3350 17 GM PACKET. PO PRN (11:00)
[2021-07-20] MEDS ORDERED: DEXTROSE 50% 25 GM / 50ML DISP.SYRIN. IV PRN (11:00)
[2021-07-20] MEDS ORDERED: oxyCODONE/APAP 5/325 1 TAB TABLET PO PRN (11:00)
[2021-07-20] MEDS ORDERED: MORPHINE SULFATE 2 MG/ML INJ. IVP PRN (11:00)
[2021-07-20] MEDS ORDERED: PROCHLORPERAZINE 10 MG/2 ML VIAL. ONE (11:11)
[2021-07-20] MEDS: IV 1/2 NORMAL SALINE 1,000 ML IV SCH (12:48)
[2021-07-20] MEDS: CLINDAMYCIN 900MG PREMIX 50 ML IV SCH ×2 (14:48→20:58)
[2021-07-20 16:26] LABS: HEMOGLOBIN 9.8 g/dL (12.0-15.5)
[2021-07-20 16:52] LABS: CALCIUM 6.8 mg/dL (8.5-10.1); GFR 53.9; POTASSIUM 3.9 mmol/L (3.5-5.1)
[2021-07-20] MEDS: ATORVASTATIN CALCIUM 20 MG TABLET PO SCH (20:57)
[2021-07-20] MEDS: traZODone 50 MG TABLET. PO SCH (20:57)
[2021-07-21] MEDS: IV 1/2 NORMAL SALINE 1,000 ML IV SCH (02:20)
[2021-07-21] MEDS: oxyCODONE/APAP 5/325 1 TAB TABLET PO PRN ×2 (03:00→09:04)
[2021-07-21] MEDS: CLINDAMYCIN 900MG PREMIX 50 ML IV SCH (03:01)
[2021-07-21 03:04] VITALS: BP 122/59
[2021-07-21 05:43] LABS: ALBUMIN 2.1 g/dL (3.4-5.0); ALBUMIN/GLOBULIN RATIO 0.6 (1.0-1.7); CALCIUM 6.8 mg/dL (8.5-10.1); CREATININE 0.9 mg/dL (0.6-1.0); GFR 60.9; POTASSIUM 4.6 mmol/L (3.5-5.1); TOTAL BILIRUBIN 0.3 mg/dL (0.2-1.0); TOTAL PROTEIN 5.7 g/dL (6.4-8.2)
[2021-07-21] MEDS: LEVOTHYROXINE 125 MCG TABLET PO SCH (05:44)
[2021-07-21] MEDS ORDERED: MAGNESIUM HYDROXIDE 2,400 MG/30 ML ORAL.SUSP. PO PRN (06:00)
--- NOTE | 2021-07-21 06:30 | NUR ---
Noted that patient did not have much output in her purewick, patient reports she needed to urinate, and thus, said she was 'going', nothing noted in the tubing, but her chux and bedding was saturated, Pt is bladder scanned also, 322ml noted. pt cleaned up, monitoring
[2021-07-21 07:14] VITALS: BP 104/51
[2021-07-21 07:19] LABS: BASO % 0 % (0-3); EOS % 0 % (0-3); HEMATOCRIT 28.3 % (36.0-47.0); HEMOGLOBIN 8.9 g/dL (12.0-15.5); LYMPH # 0.7 x10^3/uL (1.0-4.8); LYMPH % 8 % (24-48); MEAN CORPUSCULAR HEMOGLOBIN 27 pg (25-35); MEAN CORPUSCULAR HGB CONC 32 g/dL (31-37); MEAN CORPUSCULAR VOLUME 87 fL (79-100); MONO # 0.5 x10^3/uL (0.0-1.1); MONO % 7 % (0-9); NEUT # 6.5 x10^3/uL (1.8-7.7); NEUT % 84 % (31-73); PLATELET COUNT 250 x10^3/uL (140-400); RED BLOOD COUNT 3.27 x10^6/uL (3.50-5.40); RED CELL DISTRIBUTION WIDTH 19.8 % (11.5-14.5); WHITE BLOOD COUNT 7.8 x10^3/uL (4.0-11.0)
[2021-07-21] MEDS: SENNOSIDES/DOCUSATE 8.6/50MG TABLET. PO SCH (09:00)
[2021-07-21] MEDS: SERTRALINE 50 MG TABLET. PO SCH (09:03)
[2021-07-21] MEDS: CHOLECALCIFEROL (VITAMIN D3) 1,000 UNIT TABLET PO SCH (09:03)
[2021-07-21] MEDS: MEGESTROL 400 MG/10 ML ORAL.SUSP. PO SCH (09:03)
[2021-07-21] MEDS: MULTIVITAMIN with MINERAL TABLET. PO SCH (09:03)
[2021-07-21] MEDS: GABAPENTIN 300 MG CAPSULE. PO SCH ×3 (09:03→20:31)
--- NOTE | 2021-07-21 09:36 | PN ---
DATE: 07/21/2021 SUBJECTIVE: The patient is resting, slightly propped up in bed, complaining of abdominal pain and pain in her right upper extremity. She apparently underwent open reduction internal fixation of her proximal humeral surgical neck fracture, successfully done yesterday. PHYSICAL EXAMINATION: GENERAL: When I examined her, she was pale, not jaundiced or cyanosed. No lymphadenopathy, no thyromegaly, no jugular venous distention. No limb edema. VITAL SIGNS: Her heart rate was 69, blood pressure was 104/51, temperature was 98.5, respiratory rate was 18 and oxygen saturation was 100% on 2 liters of oxygen. HEAD, EYES, EARS, NOSE AND THROAT: Normocephalic, atraumatic. NECK: Supple. HEART: Normal first and second heart sounds. No gallop or murmur. CHEST: Clear to auscultation. No crepitation or rhonchi. ABDOMEN: Distended. Tenderness mostly in the suprapubic area with dull percussion note, likely due to distended bladder. Her bowel sounds are normal. She did have a bowel movement this morning according to her. NEUROLOGIC: She is awake, alert, responding appropriately. She is able to move her hands and wiggle her fingers without any evidence of right wrist drop as there was some concern that she might have that because of the proximal right humeral fracture. Her intake was 1000, output was 400. LABORATORY DATA: This morning showed a white cell count 7800, hemoglobin 8.9, hematocrit 28, MCV 87 and platelet count 250,000. Her chemistry showed a serum sodium 138, potassium 4.6, chloride 103, bicarbonate 26, anion gap of 9, BUN 12, creatinine 0.9. Estimated GFR was 61 mL per minute. Her glucose 118, calcium was 6.8. Total bilirubin, AST, ALT, alkaline phosphatase were normal. Total protein 5.7, albumin was 2.1. ASSESSMENT: 1. Fall with resultant right proximal humeral fracture, status post open reduction internal fixation. 2. Symptomatic sinus bradycardia, for which we held her metoprolol and amiodarone. 3. Osteoporosis. 4. Generalized osteoarthritis. 5. The patient has multiple other medical problems including: A. Chylothorax and empyema, status post video-assisted thoracoscopic surgery. B. Atrial fibrillation. C. Hypothyroidism. D. Hyperparathyroidism. E. Hypertension. F. Hyperlipidemia. PLAN: My plan is to arrange to scan her bladder and straight catheterize her with an indwelling Key catheter. Continue with pain management. Start the process of physical and occupational therapy. REGGIE DR: Meeta TID: [id number]
[2021-07-21 10:31] VITALS: BP 92/51
--- NOTE | 2021-07-21 12:05 | NUR ---
SS following for discharge planning. SS reviewed pt chart and discussed with pt RN. Pt is LTC resident from [facility], ; fax [phone]. Pt was currently being skilled for rehabilitation at facility. Pt is currently requiring oxygen at two liters nasal canula. COVID19 negative. Pt on IV Levaquin. PT/OT ordered. SS will continue to follow for discharge planning.
[2021-07-21 14:19] VITALS: BP 75/39
[2021-07-21] MEDS ORDERED: BISACODYL 10 MG SUPP.RECT. PR PRN (16:00)
[2021-07-21] MEDS: fentaNYL PF VIAL 100 MCG/2 ML VIAL IVP PRN (19:25)
[2021-07-21 19:45] VITALS: BP 134/83
[2021-07-21] MEDS: LACTOBACILLUS RHAMNOSUS GG 1 CAPSULE. PO SCH (20:31)
[2021-07-21] MEDS: ATORVASTATIN CALCIUM 20 MG TABLET PO SCH (20:31)
[2021-07-21] MEDS: traZODone 50 MG TABLET. PO SCH (20:31)
[2021-07-21 23:30] VITALS: BP 91/44
[2021-07-22 03:40] VITALS: BP 97/48
[2021-07-22] MEDS: fentaNYL PF VIAL 100 MCG/2 ML VIAL IVP PRN ×2 (04:23→17:50)
[2021-07-22] MEDS: LEVOTHYROXINE 125 MCG TABLET PO SCH (05:58)
[2021-07-22 06:30] VITALS: BP 88/45
[2021-07-22 07:04] LABS: CALCIUM 6.9 mg/dL (8.5-10.1); CREATININE 2.3 mg/dL (0.6-1.0); GFR 20.6; POTASSIUM 4.6 mmol/L (3.5-5.1)
[2021-07-22] MEDS ORDERED: IV NORMAL SALINE 500ML BAG 500 ML IV ONE (09:00)
[2021-07-22] MEDS: SERTRALINE 50 MG TABLET. PO SCH (09:06)
[2021-07-22] MEDS: MULTIVITAMIN with MINERAL TABLET. PO SCH (09:06)
[2021-07-22] MEDS: MEGESTROL 400 MG/10 ML ORAL.SUSP. PO SCH (09:06)
[2021-07-22] MEDS: GABAPENTIN 300 MG CAPSULE. PO SCH ×3 (09:06→20:57)
[2021-07-22] MEDS: CHOLECALCIFEROL (VITAMIN D3) 1,000 UNIT TABLET PO SCH (09:06)
[2021-07-22] MEDS: SENNOSIDES/DOCUSATE 8.6/50MG TABLET. PO SCH (09:06)
[2021-07-22] MEDS: LACTOBACILLUS RHAMNOSUS GG 1 CAPSULE. PO SCH ×2 (09:06→20:57)
[2021-07-22] MEDS: ERGOCALCIFEROL (VITAMIN D2) 50,000 UNIT CAPSULE. PO SCH (09:06)
[2021-07-22] MEDS: IV NORMAL SALINE 1000ML BAG 1,000 ML IV SCH (09:14)
[2021-07-22 09:20] LABS: BASO # 0.1 x10^3/uL (0.0-0.2); BASO % 1 % (0-3); EOS % 0 % (0-3); HEMATOCRIT 30.6 % (36.0-47.0); HEMOGLOBIN 9.4 g/dL (12.0-15.5); LYMPH # 0.8 x10^3/uL (1.0-4.8); LYMPH % 7 % (24-48); MEAN CORPUSCULAR HEMOGLOBIN 27 pg (25-35); MEAN CORPUSCULAR HGB CONC 31 g/dL (31-37); MEAN CORPUSCULAR VOLUME 86 fL (79-100); MONO # 0.7 x10^3/uL (0.0-1.1); MONO % 6 % (0-9); NEUT # 9.6 x10^3/uL (1.8-7.7); NEUT % 86 % (31-73); PLATELET COUNT 252 x10^3/uL (140-400); RED BLOOD COUNT 3.57 x10^6/uL (3.50-5.40); RED CELL DISTRIBUTION WIDTH 20.4 % (11.5-14.5); WHITE BLOOD COUNT 11.2 x10^3/uL (4.0-11.0)
[2021-07-22 10:40] LABS: % BANDS 8 % (0-9); % LYMPHS 7 % (24-48); % MONOS 2 % (0-10); % SEGS 83 % (35-66); ANISOCYTOSIS MOD; PLT ESTIMATE ADEQUATE (ADEQUATE)
[2021-07-22 10:41] LABS: TOXIC GRANULATION PRESENT
[2021-07-22 11:00] VITALS: BP 82/43
--- NOTE | 2021-07-22 11:11 | RAD ---
EXAMINATION: CT abdomen and pelvis without IV contrast. INDICATION:76 years, Female, acute diffuse abdominal pain and acute kidney injury. TECHNIQUE: Axial CT images of the abdomen and pelvis were obtained. Coronal and sagittal reformatted performed. COMPARISON: CT abdomen from 07/19/2021. Exposure: One or more of the following individualized dose reduction techniques were utilized for thi s examination: 1. Automated exposure control 2. Adjustment of the mA and/or kV according to patient size 3. Use of iterative reconstruction technique. FINDINGS: LOWER CHEST: Small bilateral: Bilateral pleural effusions relatively similar. Increased bibasilar opacities favori ng subsegmental atelectasis. There are increased groundglass opacities within the lingula and right m iddle lobe with increased subpleural reticulations. ABDOMEN/PELVIS: Liver and gallbladder are unremarkable. No biliary duct dilation. The spleen and adrenal glands are n ormal. There is interval development of interstitial edema and enlargement involving the pancreatic h ead and body with moderate peripancreatic edema. No apparent main pancreatic duct dilation. Similar a trophy of bilateral kidneys with no evidence of acute focal abnormality. No hydroureteronephrosis. Moderate hiatal hernia, unchanged. Stomach is otherwise unremarkable. There is likely reactive change s about the second and third portion of the duodenum. The small bowel is otherwise unremarkable. Sterling kirstie diverticulosis without diverticulitis. Small amount of likely reactive fluid layering along the pericolic gutters. No free intra-abdominal a ir. No pathologically enlarged abdominal or pelvic adenopathy. Similar aortobiiliac atherosclerotic d isease without evidence of acute vascular abnormality. Urinary bladder is decompressed secondary to Key catheter placement. Uterus and adnexa are unremark able. Based amount of likely reactive fluid within the dependent portion of the pelvis. Anterior abdominal wall is unremarkable. There is moderate amount of mostly dependent subcutaneous ed dylon. MUSCULOSKELETAL: Similar moderate to severe multilevel degenerative changes in the left hip with avascular necrosis in the left femoral head with associated articular collapse. Multilevel degenerative changes in the lum bar spine. Nonspecific subcutaneous mostly calcified density in the anterior left thigh. IMPRESSION: 1. 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 2. Bibasilar interstitial infiltrates has appearance of interstitial pulmonary edema, interstitial pn eumonitis can also have a similar appearance. Increased bibasilar consolidations favors subsegmental atelectasis. Similar small bilateral pleural effusions. 3. Other chronic/incidental findings appear similar to prior exam. Electronically signed by: Dannie Ac DO (07/22/2021 11:09 AM) [id number]
--- NOTE | 2021-07-22 12:01 | NUR ---
SS following up with discharge planning. SS reviewed pt chart and discussed with pt RN. Pt is LTC resident from [facility], ; fax [phone]. COVID19 negative. Pt is currently requiring oxygen at two liters nasal canula. PT/OT following. Pt on PO Levaquin. Pt had surgery with Ortho on 07/20/2021. Abdominal CT today. Clinical updates phoned and faxed to [facility]. SS will continue to follow for discharge planning.
--- NOTE | 2021-07-22 12:05 | PDOC2 ---
CONSULT Date of Consult Date of Consult DATE: 07/22/21 TIME: 11:56 Reason for Consult Reason for Consult: BRIAN Referring Physician Referring Physician: CINTHYA Identification/Chief Complaint Chief Complaint FALL History of Present Illness Reason for Visit: THIS IS A 76 YR OLD WITH A FALL. SHE FELT DIZZY AND FELL. NOTED ON ADMIT TO BE HYPOTENSIVE AND BRADYCARDIC. HER AMIODARONE AND BETA REJI HAVE BEEN PLACED ON HOLD. SHE SUSTAINED A RIGHT PROXIMAL HUMERAL FRACTURE. NO CKD HX. SHE IS NOTED TO HAVE A NL CR ON ADMIT AND NOW CR OF 2.3. SHE HAS A QUIROZ IN PLACE. SHE HAS AN UTI AND LEUCOCYTOSIS. SHE IS CONFUSED. ORTHOPEDIC EVALUATION ONGOING AT THIS TIME. CT OF ABD/PELVIS REVEALED A DECOMPRESSED BLADDER WITH A QUIROZ AND MILD BILATERAL RENAL ATROPHY. 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 (4) Hypokalemia Status: Acute (5) Hypovitaminosis D Status: Acute (6) Proximal humerus fracture Status: Acute (7) Symptomatic bradycardia Status: Acute Current Medications Current Medications Current Medications Iohexol (Omnipaque 300 Mg/ml) 75 ml 1X ONCE IV Last administered on 07/19/21at 07:51; Start 07/19/21 at 07:30; Stop 07/19/21 at 07:31; Status DC Info (CONTRAST GIVEN -- Rx MONITORING) 1 each PRN DAILY PRN MC SEE COMMENTS; Start 07/19/21 at 07:30; Stop 07/21/21 at 07:29; Status DC Morphine Sulfate (Morphine Sulfate) 2 mg 1X ONCE IVP Last administered on 07/19/21at 07:33; Start 07/19/21 at 07:30; Stop 07/19/21 at 07:31; Status DC Potassium Chloride/Water 100 ml @ 100 mls/hr Q1H IV Last administered on 07/19/21at 19:09; Start 07/19/21 at 09:00; Stop 07/19/21 at 10:59; Status DC Morphine Sulfate (Morphine Sulfate) 2 mg 1X ONCE IVP Last administered on 07/19/21at 08:25; Start 07/19/21 at 08:30; Stop 07/19/21 at 08:31; Status DC Ondansetron HCl (Zofran) 4 mg PRN Q8HRS PRN IVP NAUSEA/VOMITING; Start 07/19/21 at 09:30; Stop 07/20/21 at 09:29; Status DC Morphine Sulfate (Morphine Sulfate) 2 mg PRN Q2HR PRN IVP PAIN Last administered on 07/19/21at 22:30; Start 07/19/21 at 09:30; Stop 07/20/21 at 09:29; Status DC Morphine Sulfate (Morphine Sulfate) 2 mg PRN Q2HR PRN IVP PAIN; Start 07/19/21 at 09:45; Stop 07/19/21 at 16:45; Status DC Acetaminophen (Tylenol) 650 mg PRN Q6HRS PRN PO MILD PAIN / TEMP > 100.3'F Last administered on 07/19/21at 12:04; Start 07/19/21 at 12:00 Oxycodone/ Acetaminophen (Percocet 5/325) 1 tab PRN Q4HRS PRN PO MODERATE PAIN Last administered on 07/19/21at 20:20; Start 07/19/21 at 16:45 Oxycodone/ Acetaminophen (Percocet 5/325) 2 tab PRN Q4HRS PRN PO SEVERE PAIN Last administered on 07/21/21at 09:04; Start 07/19/21 at 17:00 Clindamycin Phosphate 50 ml @ 100 mls/hr 1X PREOP PRN IV PRIOR TO PROCEDURE Last administered on 07/20/21at 09:15; Start 07/19/21 at 18:00; Stop 07/20/21 at 09:24; Status DC Atorvastatin Calcium (Lipitor) 20 mg HS PO Last administered on 07/21/21at 20:31; Start 07/19/21 at 21:00 Gabapentin (Neurontin) 300 mg TID PO Last administered on 07/22/21at 09:06; Start 07/19/21 at 21:00 Lactulose (Lactulose) 10 gm PRN DAILY PRN PO CONSTIPATION; Start 07/19/21 at 20:00 Levothyroxine Sodium (Synthroid) 125 mcg DAILY06 PO Last administered on 07/22/21at 05:58; Start 07/20/21 at 03:30 Megestrol Acetate (Megace) 400 mg DAILY PO Last administered on 07/22/21at 09:06; Start 07/20/21 at 09:00 Sertraline HCl (Zoloft) 50 mg DAILY PO Last administered on 07/22/21at 09:06; Start 07/20/21 at 09:00 Trazodone HCl (Desyrel) 50 mg QHS PO Last administered on 07/21/21at 20:31; Start 07/19/21 at 21:00 Phenylephrine HCl (PHENYLEPHRINE in 0.9% NACL PF) 1 mg STK-MED ONCE IV ; Start 07/20/21 at 07:28; Stop 07/20/21 at 07:28; Status DC Ephedrine Sulfate (ePHEDrine PF IN SALINE SYRINGE) 50 mg STK-MED ONCE IV ; Start 07/20/21 at 07:28; Stop 07/20/21 at 07:28; Status DC Lidocaine HCl (Lidocaine Pf 2% Vial) 5 ml STK-MED ONCE .ROUTE ; Start 07/20/21 at 07:28; Stop 07/20/21 at 07:29; Status DC Ondansetron HCl (Zofran) 4 mg STK-MED ONCE .ROUTE ; Start 07/20/21 at 07:28; Stop 07/20/21 at 07:29; Status DC Dexamethasone Sodium Phosphate (Decadron) 4 mg STK-MED ONCE .ROUTE ; Start 07/20/21 at 07:28; Stop 07/20/21 at 07:29; Status DC Ondansetron HCl (Zofran) 4 mg STK-MED ONCE .ROUTE ; Start 07/20/21 at 07:28; Stop 07/20/21 at 07:29; Status DC Rocuronium Wilmer (Zemuron) 50 mg STK-MED ONCE .ROUTE ; Start 07/20/21 at 07:29; Stop 07/20/21 at 07:30; Status DC Fentanyl Citrate (Fentanyl 2ml Vial) 100 mcg STK-MED ONCE .ROUTE ; Start 07/20/21 at 07:31; Stop 07/20/21 at 07:31; Status DC Midazolam HCl (Versed) 2 mg STK-MED ONCE .ROUTE ; Start 07/20/21 at 08:01; Stop 07/20/21 at 08:01; Status DC Ropivacaine (Naropin 0.5%) 20 ml STK-MED ONCE .ROUTE ; Start 07/20/21 at 08:01; Stop 07/20/21 at 08:02; Status DC Phenylephrine HCl (Reji-Synephrine Inj) 10 mg STK-MED ONCE .ROUTE ; Start 07/20/21 at 08:44; Stop 07/20/21 at 08:44; Status DC Neostigmine Wilmer (Neostigmine Methylsulfate) 5 mg STK-MED ONCE .ROUTE ; Start 07/20/21 at 09:15; Stop 07/20/21 at 09:15; Status DC Sevoflurane (Ultane) 60 ml STK-MED ONCE IH ; Start 07/20/21 at 09:20; Stop 07/20/21 at 09:21; Status DC Levofloxacin/ Dextrose 100 ml @ 100 mls/hr Q24H IV Last administered on 07/21/21at 10:00; Start 07/20/21 at 10:00; Stop 07/21/21 at 15:58; Status DC Vancomycin HCl (Vancomycin) 1 gm STK-MED ONCE .ROUTE Last administered on 07/20/21at 08:57; Start 07/20/21 at 10:03; Stop 07/20/21 at 10:03; Status DC Sevoflurane (Ultane) 90 ml STK-MED ONCE IH ; Start 07/20/21 at 10:27; Stop 07/20/21 at 10:27; Status DC Fentanyl Citrate (Fentanyl 2ml Vial) 25 mcg PRN Q5MIN PRN IVP MILD PAIN 1-3; Start 07/20/21 at 11:00; Stop 07/20/21 at 14:00; Status DC Fentanyl Citrate (Fentanyl 2ml Vial) 50 mcg PRN Q5MIN PRN IVP MODERATE PAIN 4- 6; Start 07/20/21 at 11:00; Stop 07/20/21 at 14:00; Status DC Morphine Sulfate (Morphine Sulfate) 1 mg PRN Q10MIN PRN IVP SEVERE PAIN 7-10; Start 07/20/21 at 11:00; Stop 07/20/21 at 14:00; Status DC Ringer's Solution 1,000 ml @ 30 mls/hr Q24H IV Last administered on 07/20/21at 08:59; Start 07/20/21 at 11:00; Stop 07/20/21 at 22:59; Status DC Hydromorphone HCl (Dilaudid) 0.5 mg PRN Q10MIN PRN IVP SEVERE PAIN 7-10, 2nd CHOICE; Start 07/20/21 at 11:00; Stop 07/20/21 at 14:00; Status DC Prochlorperazine Edisylate (Compazine) 5 mg PACU PRN PRN IVP NAUSEA, MRX1 Last administered on 07/20/21at 11:15; Start 07/20/21 at 11:00; Stop 07/20/21 at 14:00; Status DC Fentanyl Citrate (Fentanyl 2ml Vial) 50 mcg PRN Q1HR PRN IVP SEVERE PAIN 7-10 Last administered on 07/22/21at 04:23; Start 07/20/21 at 12:00 Multivitamins (Thera M Plus) 1 tab DAILY PO Last administered on 07/22/21at 09:06; Start 07/21/21 at 09:00 Senna/Docusate Sodium (Senna Plus) 1 tab DAILY PO Last administered on 07/22/21at 09:06; Start 07/21/21 at 09:00 Polyethylene Glycol (miraLAX PACKET) 17 gm PRN DAILY PRN PO CONSTIPATION; Start 07/20/21 at 11:00 Vitamin D (Vitamin D3) 1,000 unit DAILY PO Last administered on 07/22/21at 09:06; Start 07/21/21 at 09:00 Sodium Chloride 1,000 ml @ 75 mls/hr [id number] IV Last administered on 07/20/21at 12:48; Start 07/20/21 at 13:00; Stop 07/21/21 at 09:25; Status DC Clindamycin Phosphate 50 ml @ 100 mls/hr Q6H IV Last administered on 07/21/21at 03:01; Start 07/20/21 at 15:00; Stop 07/21/21 at 03:29; Status DC Ondansetron HCl (Zofran) 4 mg PRN Q4HRS PRN IVP NAUSEA/VOMITING; Start 07/20/21 at 11:00 Magnesium Hydroxide (Milk Of Magnesia) 2,400 mg 1X PRN PRN PO CONSTIPATION; Start 07/21/21 at 06:00; Stop 07/22/21 at 05:59; Status DC Bisacodyl (Dulcolax Supp) 10 mg 1X PRN PRN DE CONSTIPATION; Start 07/21/21 at 16:00; Stop 07/22/21 at 15:59 Dextrose (Dextrose 50%-Water Syringe) 12.5 gm PRN Q15MIN PRN IV SEE COMMENTS; Start 07/20/21 at 11:00 Oxycodone/ Acetaminophen (Percocet 5/325) i-ii po q4hrs prn pain PRN Q4HRS PRN PO PAIN; Start 07/20/21 at 11:00; Status UNV Prochlorperazine Edisylate (Compazine) 10 mg STK-MED ONCE .ROUTE ; Start 07/20/21 at 11:11; Stop 07/20/21 at 11:11; Status DC Phenylephrine HCl (PHENYLEPHRINE in 0.9% NACL PF) 1 mg STK-MED ONCE IV ; Start 07/20/21 at 11:54; Stop 07/20/21 at 11:55; Status DC Ergocalciferol (Vitamin D2) 50,000 unit WEEKLY PO Last administered on 07/22/21at 09:06; Start 07/22/21 at 09:00; Stop 08/26/21 at 09:01 Levofloxacin (Levaquin) 250 mg DAILY06 PO Last administered on 07/22/21at 05:58; Start 07/22/21 at 06:00 Lactobacillus Rhamnosus (Culturelle) 1 cap BID PO Last administered on 07/22/21at 09:06; Start 07/21/21 at 21:00 Sodium Chloride 500 ml @ 500 mls/hr 1X ONCE IV Last administered on 07/22/21at 09:11; Start 07/22/21 at 09:00; Stop 07/22/21 at 09:59; Status DC Sodium Chloride 1,000 ml @ 100 mls/hr Q10H IV Last administered on 07/22/21at 09:14; Start 1/4/22 at 09:00 Active Scripts Active Reported Trazodone Hcl 50 Mg Tablet 1 Tab PO QHS Zoloft (Sertraline Hcl) 50 Mg Tablet 1 Tab PO DAILY Polyethylene Glycol 3350 2,500 Gm Powder 17 Gm PO DAILY Metoprolol Tartrate 25 Mg Tablet 1 Tab PO BID Megestrol Acetate 400 Mg/10 Ml Oral.susp 400 Mg PO DAILY Levothyroxine Sodium 125 Mcg Tablet 1 Tab PO DAILY Lactulose 20 Gm/30 Ml Solution 10 Gm PO PRN DAILY Gabapentin 300 Mg Capsule 300 Mg PO TID Atorvastatin Calcium 20 Mg Tablet 1 Tab PO HS Amiodarone Hcl 200 Mg Tablet 1 Tab PO BID Allergies Allergies: Coded Allergies: Penicillins (Verified Allergy, Intermediate, 07/19/21) Sulfa (Sulfonamide Antibiotics) (Verified Allergy, Intermediate, 07/19/21) ROS Review of System UNABLE TO OBTAIN Physical Exam General: Cooperative, No acute distress HEENT: Atraumatic, PERRLA Lungs: Clear to auscultation Heart: Regular rate, Other (OCC MONTRELL) Abdomen: Normal bowel sounds Extremities: No clubbing Skin: No breakdown Neuro: Other (CONFUSED) Psych/Mental Status: Other (CONFUSED) MUSCULOSKELETAL: No deformity, No swelling Vitals VITALS Vital Signs Date Time Temp Pulse Resp B/P (MAP) Pulse Ox O2 Delivery O2 Flow Rate FiO2 07/22/21 11:00 98.0 78 18 82/43 (56) 97 Room Air 2.0 98.0 Labs Labs Laboratory Tests Test 07/20/21 16:15 07/21/21 03:30 07/21/21 07:10 07/22/21 04:20 Hemoglobin 9.8 g/dL (12.0-15.5) 8.9 g/dL (12.0-15.5) 9.4 g/dL (12.0-15.5) Hematocrit 31.0 % (36.0-47.0) 28.3 % (36.0-47.0) 30.6 % (36.0-47.0) Sodium Level 142 mmol/L (136-145) 138 mmol/L (136-145) 134 mmol/L (136-145) Potassium Level 3.9 mmol/L (3.5-5.1) 4.6 mmol/L (3.5-5.1) 4.6 mmol/L (3.5-5.1) Chloride Level 105 mmol/L (98-107) 103 mmol/L (98-107) 100 mmol/L (98-107) Carbon Dioxide Level 25 mmol/L (21-32) 26 mmol/L (21-32) 23 mmol/L (21-32) Anion Gap 12 (6-14) 9 (6-14) 11 (6-14) Blood Urea Nitrogen 9 mg/dL (7-20) 12 mg/dL (7-20) 24 mg/dL (7-20) Creatinine 1.0 mg/dL (0.6-1.0) 0.9 mg/dL (0.6-1.0) 2.3 mg/dL (0.6-1.0) Estimated GFR (Cockcroft-Gault) 53.9 60.9 20.6 Glucose Level 145 mg/dL (70-99) 118 mg/dL (70-99) 59 mg/dL (70-99) Calcium Level 6.8 mg/dL (8.5-10.1) 6.8 mg/dL (8.5-10.1) 6.9 mg/dL (8.5-10.1) BUN/Creatinine Ratio 13 (6-20) Total Bilirubin 0.3 mg/dL (0.2-1.0) Aspartate Amino Transf (AST/SGOT) 27 U/L (15-37) Alanine Aminotransferase (ALT/SGPT) 18 U/L (14-59) Alkaline Phosphatase 89 U/L (46-116) Total Protein 5.7 g/dL (6.4-8.2) Albumin 2.1 g/dL (3.4-5.0) Albumin/Globulin Ratio 0.6 (1.0-1.7) 25-Hydroxy Vitamin D Total 14.1 ng/mL (30-100) White Blood Count 7.8 x10^3/uL (4.0-11.0) 11.2 x10^3/uL (4.0-11.0) Red Blood Count 3.27 x10^6/uL (3.50-5.40) 3.57 x10^6/uL (3.50-5.40) Mean Corpuscular Volume 87 fL (79-100) 86 fL (79-100) Mean Corpuscular Hemoglobin 27 pg (25-35) 27 pg (25-35) Mean Corpuscular Hemoglobin Concent 32 g/dL (31-37) 31 g/dL (31-37) Red Cell Distribution Width 19.8 % (11.5-14.5) 20.4 % (11.5-14.5) Platelet Count 250 x10^3/uL (140-400) 252 x10^3/uL (140-400) Neutrophils (%) (Auto) 84 % (31-73) 86 % (31-73) Lymphocytes (%) (Auto) 8 % (24-48) 7 % (24-48) Monocytes (%) (Auto) 7 % (0-9) 6 % (0-9) Eosinophils (%) (Auto) 0 % (0-3) 0 % (0-3) Basophils (%) (Auto) 0 % (0-3) 1 % (0-3) Neutrophils # (Auto) 6.5 x10^3/uL (1.8-7.7) 9.6 x10^3/uL (1.8-7.7) Lymphocytes # (Auto) 0.7 x10^3/uL (1.0-4.8) 0.8 x10^3/uL (1.0-4.8) Monocytes # (Auto) 0.5 x10^3/uL (0.0-1.1) 0.7 x10^3/uL (0.0-1.1) Eosinophils # (Auto) 0.0 x10^3/uL (0.0-0.7) 0.0 x10^3/uL (0.0-0.7) Basophils # (Auto) 0.0 x10^3/uL (0.0-0.2) 0.1 x10^3/uL (0.0-0.2) Segmented Neutrophils % 83 % (35-66) Band Neutrophils % 8 % (0-9) Lymphocytes % 7 % (24-48) Monocytes % 2 % (0-10) Toxic Granulation Present Platelet Estimate Adequate (ADEQUATE) Large Platelets Few Giant Platelets Few Anisocytosis Mod Procalcitonin 0.63 ng/mL (0.00-0.10) Thyroid Stimulating Hormone (TSH) 4.598 uIU/mL (0.358-3.74) Laboratory Tests Test 07/22/21 04:20 White Blood Count 11.2 x10^3/uL (4.0-11.0) Red Blood Count 3.57 x10^6/uL (3.50-5.40) Hemoglobin 9.4 g/dL (12.0-15.5) Hematocrit 30.6 % (36.0-47.0) Mean Corpuscular Volume 86 fL (79-100) Mean Corpuscular Hemoglobin 27 pg (25-35) Mean Corpuscular Hemoglobin Concent 31 g/dL (31-37) Red Cell Distribution Width 20.4 % (11.5-14.5) Platelet Count 252 x10^3/uL (140-400) Neutrophils (%) (Auto) 86 % (31-73) Lymphocytes (%) (Auto) 7 % (24-48) Monocytes (%) (Auto) 6 % (0-9) Eosinophils (%) (Auto) 0 % (0-3) Basophils (%) (Auto) 1 % (0-3) Neutrophils # (Auto) 9.6 x10^3/uL (1.8-7.7) Lymphocytes # (Auto) 0.8 x10^3/uL (1.0-4.8) Monocytes # (Auto) 0.7 x10^3/uL (0.0-1.1) Eosinophils # (Auto) 0.0 x10^3/uL (0.0-0.7) Basophils # (Auto) 0.1 x10^3/uL (0.0-0.2) Segmented Neutrophils % 83 % (35-66) Band Neutrophils % 8 % (0-9) Lymphocytes % 7 % (24-48) Monocytes % 2 % (0-10) Toxic Granulation Present Platelet Estimate Adequate (ADEQUATE) Large Platelets Few Giant Platelets Few Anisocytosis Mod Sodium Level 134 mmol/L (136-145) Potassium Level 4.6 mmol/L (3.5-5.1) Chloride Level 100 mmol/L (98-107) Carbon Dioxide Level 23 mmol/L (21-32) Anion Gap 11 (6-14) Blood Urea Nitrogen 24 mg/dL (7-20) Creatinine 2.3 mg/dL (0.6-1.0) Estimated GFR (Cockcroft-Gault) 20.6 Glucose Level 59 mg/dL (70-99) Calcium Level 6.9 mg/dL (8.5-10.1) Procalcitonin 0.63 ng/mL (0.00-0.10) Thyroid Stimulating Hormone (TSH) 4.598 uIU/mL (0.358-3.74) Assessment/Plan Assessment/Plan IMP BRIAN-CR OF 2.3 WITH NO CKD HX OF AFIB BRADYCARDIA HYPOTENSION HX OF HTN FALL SYNCOPE RIGHT HUMERUS NECK FRACTURE URINARY TRACT INFECTION PLAN HYDRATION CORRECT HR BETABLOCKER AND AMIODARONE ON HOLD ANTIBIOTICS ORTHOPEDIC EVAL AND TX MAINTAIN QUIROZ WILL FOLLOW BALDEMAR JOHNSON MD Jul 22, 2021 12:05
--- NOTE | 2021-07-22 13:37 | PN ---
DATE: 07/22/2021 SUBJECTIVE: The patient is resting, slightly propped up in bed, complaining of abdominal pain and pain in her right upper extremity. Yesterday, she was retaining urine, so eventually she has an indwelling Key catheter placed in. However, when I saw her this morning, her abdominal pain is diffuse. She denied, however, any nausea, vomiting. Her last bowel movement was 2 days ago according to her. There was no documented fever. PHYSICAL EXAMINATION: GENERAL: When I examined her this morning, she was pale, but not jaundiced, cyanosed. No lymphadenopathy, no thyromegaly, no jugular venous distention. No limb edema. VITAL SIGNS: Her heart rate was 82, blood pressure was 88/45, temperature was 97.8, respiratory rate was 20 and oxygen saturation was 99% on 2 liters of oxygen. HEAD, EYES, EARS, NOSE, AND THROAT: Showed she is normocephalic, atraumatic. NECK: Supple. HEART: Showed normal first and second heart sounds. No gallop, rub or murmur. CHEST: Clear to auscultation, no crepitation or rhonchi. ABDOMEN: Distended, diffusely tender. No guarding or rigidity. No organomegaly. All hernial orifice intact. Bowel sounds normal. NEUROLOGIC: She was awake, alert, responding appropriately. All her cranial nerves are intact. She moves all extremities without difficulty. LABORATORY DATA: Her lab work this morning showed that her serum sodium was 134, potassium 4.6, chloride 100, bicarbonate 23, anion gap of 11, BUN 24, creatinine 2.3. Estimated GFR was 20 mL per minute. Her glucose was 59, calcium was 6.9. Her 25-hydroxy vitamin D was 14.1. TSH was 4.598. Her CBC is still pending at the time of this dictation. Her intake was 1450, output was 820. ASSESSMENT: 1. Fall with resultant right proximal humerus fracture, status post open reduction internal fixation. 2. Symptomatic sinus bradycardia for which we held her metoprolol and amiodarone. 3. Osteoporosis. 4. Generalized osteoarthritis. 5. Acute abdomen, for which I have arranged for her to have a CT scan of the abdomen and pelvis without contrast. 6. Urinary retention requiring indwelling Key catheter. 7. The patient has multiple other medical problems including: A. Chylothorax and empyema, status post video-assisted thoracoscopic surgery. B. Atrial fibrillation. C. Hypothyroidism. D. Hyperparathyroidism. E. Hypertension. F. Hyperlipidemia. PLAN: To keep her n.p.o. We will arrange for her to have a CT scan of the abdomen and pelvis without contrast. I have ordered a 500 mL normal saline bolus and continue with 100 mL per hour. I ordered a CBC with differential, procalcitonin and lactic acid. I have also consulted the brine well operator and ordered SCDs for DVT prophylaxis. OSKAR/JAIRO DR: Meeta TID: [id number]
[2021-07-22 14:58] VITALS: BP 84/46
[2021-07-22] MEDS: MEROPENEM 500 MG in IV NORMAL SALINE 50ML 50 ML IV SCH ×2 (15:17→20:57)
[2021-07-22 19:40] VITALS: BP 99/49
[2021-07-22] MEDS: ATORVASTATIN CALCIUM 20 MG TABLET PO SCH (20:57)
[2021-07-22] MEDS: traZODone 50 MG TABLET. PO SCH (20:58)
[2021-07-22 22:40] VITALS: BP 100/50
[2021-07-23 02:55] VITALS: BP 92/52
[2021-07-23] MEDS: ACETAMINOPHEN 325 MG TABLET. PO PRN (04:12)
[2021-07-23] MEDS: fentaNYL PF VIAL 100 MCG/2 ML VIAL IVP PRN (04:30)
[2021-07-23] MEDS: IV NORMAL SALINE 1000ML BAG 1,000 ML IV SCH ×3 (05:00→15:00)
[2021-07-23] MEDS: LEVOTHYROXINE 125 MCG TABLET PO SCH (05:22)
[2021-07-23 05:57] LABS: BASO % 0 % (0-3); EOS % 1 % (0-3); HEMATOCRIT 25.7 % (36.0-47.0); HEMOGLOBIN 8.6 g/dL (12.0-15.5); LYMPH # 0.7 x10^3/uL (1.0-4.8); LYMPH % 8 % (24-48); MEAN CORPUSCULAR HEMOGLOBIN 28 pg (25-35); MEAN CORPUSCULAR HGB CONC 34 g/dL (31-37); MEAN CORPUSCULAR VOLUME 84 fL (79-100); MONO # 0.9 x10^3/uL (0.0-1.1); MONO % 9 % (0-9); NEUT # 7.9 x10^3/uL (1.8-7.7); NEUT % 82 % (31-73); PLATELET COUNT 226 x10^3/uL (140-400); RED BLOOD COUNT 3.07 x10^6/uL (3.50-5.40); RED CELL DISTRIBUTION WIDTH 20.2 % (11.5-14.5); WHITE BLOOD COUNT 9.6 x10^3/uL (4.0-11.0)
[2021-07-23 06:30] LABS: ALBUMIN 1.6 g/dL (3.4-5.0); ALBUMIN/GLOBULIN RATIO 0.5 (1.0-1.7); CALCIUM 6.1 mg/dL (8.5-10.1); CREATININE 1.4 mg/dL (0.6-1.0); GFR 36.6; POTASSIUM 3.5 mmol/L (3.5-5.1); TOTAL BILIRUBIN 0.5 mg/dL (0.2-1.0); TOTAL PROTEIN 4.8 g/dL (6.4-8.2)
[2021-07-23 07:00] VITALS: BP 87/50
[2021-07-23] MEDS: SERTRALINE 50 MG TABLET. PO SCH (09:00)
[2021-07-23] MEDS: SENNOSIDES/DOCUSATE 8.6/50MG TABLET. PO SCH (09:00)
[2021-07-23] MEDS: MEGESTROL 400 MG/10 ML ORAL.SUSP. PO SCH (09:00)
[2021-07-23] MEDS: MULTIVITAMIN with MINERAL TABLET. PO SCH (09:00)
[2021-07-23] MEDS: GABAPENTIN 300 MG CAPSULE. PO SCH ×3 (09:00→20:35)
[2021-07-23] MEDS: CHOLECALCIFEROL (VITAMIN D3) 1,000 UNIT TABLET PO SCH (09:00)
[2021-07-23] MEDS: LACTOBACILLUS RHAMNOSUS GG 1 CAPSULE. PO SCH ×2 (09:00→20:35)
[2021-07-23] MEDS: MEROPENEM 500 MG in IV NORMAL SALINE 50ML 50 ML IV SCH (09:07)
--- NOTE | 2021-07-23 10:16 | CONS ---
DATE OF CONSULTATION: 07/23/2021 REQUESTNG PHYSICIAN: Dr. Pratt. REASON FOR CONSULTATION: Possible sepsis, question pneumonia. HISTORY OF PRESENT ILLNESS: This is a 76-year-old female who was transferred from rehab after having a fall. The patient was found to have right proximal humerus fracture. The patient underwent ORIF. The patient had a slight leukocytosis yesterday and tachycardia and hypotension, hence consultation. The patient has been started on meropenem and Zyvox. The patient is alert, awake, complaining of pain at the shoulder surgery site. The patient had developed acute kidney injury with dehydration, which is improving. The patient denies any nausea, vomiting, diarrhea, chest pain, shortness of breath, abdominal pain. Minimal cough. No urinary symptoms or bowel symptoms. PAST MEDICAL HISTORY: Positive for atrial fibrillation, interstitial cystitis, hypothyroidism, parathyroidectomy, hypertension, hyperlipidemia, also had a thyroidectomy and lung mass removal. SOCIAL HISTORY: Negative for smoking, alcohol, illicit drug use. ALLERGIES: SHE IS LISTED ALLERGIC TO PENICILLIN AND SULFA. CURRENT MEDICATIONS: Reviewed. REVIEW OF SYSTEMS: As in HPI. All other systems reviewed are negative. PHYSICAL EXAMINATION: GENERAL: Alert, oriented female, not in distress. VITAL SIGNS: Stable, afebrile. The patient is on 2 liters of oxygen with 96% saturation. HEENT: Both pupils are round and reacting. No conjunctival lesion, no lesion in the mouth. NECK: Supple, no JVP, no lymphadenopathy. LUNGS: Clear. HEART: S1, S2, regular. ABDOMEN: Soft, nontender, no organomegaly. EXTREMITIES: No edema, cyanosis. SKIN: Unremarkable. Right shoulder post surgical dressing was not open. NEUROLOGIC: The patient is alert, awake, and appropriate. No focal neurologic deficit. LABORATORY DATA: White count is 9.6, platelets are normal. BUN and creatinine is 26 and 1.4, which has improved. Lactic acid is normal at 1.8. The lipase was yesterday 1789, it came down to 277 today. Urinalysis showed more than 40 wbc's. Urine culture and blood culture is done and is in the process. X-ray and CT reviewed. IMPRESSION: 1. Status post fall with right proximal humerus fracture, status post open reduction and internal fixation. 2. Hypotension, likely from the dehydration. 3. Acute kidney injury. 4. Elevated lipase of unclear significance, it improved in a day significantly. 5. Pulmonary infiltrate, which is a combination of CHF and/or atelectasis from pleural effusion. RECOMMENDATIONS: We will discontinue meropenem, discontinue Zyvox, and put her on oral Levaquin. Supportive care and will continue to follow. Thank you very much, Dr. Pratt, for giving me opportunity to participate in this patient's care. MALATHI/JN DR: Frieda TID: [id number]
[2021-07-23 11:00] VITALS: BP 106/53
--- NOTE | 2021-07-23 11:36 | NUR ---
SS following up with discharge planning. SS reviewed pt chart and discussed with pt RN. Pt is LTC resident from [facility], ; fax [phone]. COVID19 negative. Pt is currently requiring oxygen at two liters nasal canula. PT/OT recommended detention unit. Pt on PO Levaquin. Blood pressure low today. SS will continue to follow for discharge planning.
[2021-07-23] MEDS ORDERED: IV NORMAL SALINE 500ML BAG 500 ML IV ONE ×2 (12:15→17:45)
--- NOTE | 2021-07-23 13:04 | PDOC ---
Renal-Progress Notes Subjective Notes Notes NO NEW COMPLAINTS History of Present Illness Hx of present illness LESS CONFUSED Vitals Vitals Vital Signs Date Time Temp Pulse Resp B/P (MAP) Pulse Ox O2 Delivery O2 Flow Rate FiO2 07/23/21 08:00 Nasal Cannula 2.0 07/23/21 07:00 98.1 70 20 87/50 (62) 95 98.1 Weight Weight [ ] I.O. Intake and Output Intake and Output 07/23/21 07:00 Intake Total 1150 ml Output Total 570 ml Balance 580 ml Intake Oral 800 ml IV Total 350 ml Output Urine Total 570 ml Labs Labs Laboratory Tests Test 07/23/21 05:40 White Blood Count 9.6 x10^3/uL (4.0-11.0) Red Blood Count 3.07 x10^6/uL (3.50-5.40) Hemoglobin 8.6 g/dL (12.0-15.5) Hematocrit 25.7 % (36.0-47.0) Mean Corpuscular Volume 84 fL (79-100) Mean Corpuscular Hemoglobin 28 pg (25-35) Mean Corpuscular Hemoglobin Concent 34 g/dL (31-37) Red Cell Distribution Width 20.2 % (11.5-14.5) Platelet Count 226 x10^3/uL (140-400) Neutrophils (%) (Auto) 82 % (31-73) Lymphocytes (%) (Auto) 8 % (24-48) Monocytes (%) (Auto) 9 % (0-9) Eosinophils (%) (Auto) 1 % (0-3) Basophils (%) (Auto) 0 % (0-3) Neutrophils # (Auto) 7.9 x10^3/uL (1.8-7.7) Lymphocytes # (Auto) 0.7 x10^3/uL (1.0-4.8) Monocytes # (Auto) 0.9 x10^3/uL (0.0-1.1) Eosinophils # (Auto) 0.0 x10^3/uL (0.0-0.7) Basophils # (Auto) 0.0 x10^3/uL (0.0-0.2) Sodium Level 136 mmol/L (136-145) Potassium Level 3.5 mmol/L (3.5-5.1) Chloride Level 102 mmol/L (98-107) Carbon Dioxide Level 22 mmol/L (21-32) Anion Gap 12 (6-14) Blood Urea Nitrogen 26 mg/dL (7-20) Creatinine 1.4 mg/dL (0.6-1.0) Estimated GFR (Cockcroft-Gault) 36.6 BUN/Creatinine Ratio 19 (6-20) Glucose Level 76 mg/dL (70-99) Calcium Level 6.1 mg/dL (8.5-10.1) Total Bilirubin 0.5 mg/dL (0.2-1.0) Aspartate Amino Transf (AST/SGOT) 36 U/L (15-37) Alanine Aminotransferase (ALT/SGPT) 13 U/L (14-59) Alkaline Phosphatase 85 U/L (46-116) Total Protein 4.8 g/dL (6.4-8.2) Albumin 1.6 g/dL (3.4-5.0) Albumin/Globulin Ratio 0.5 (1.0-1.7) Lipase 277 U/L (73-393) Review of Systems Constitutional: yes: other (CONFUSED) Ears/Nose/Throat: Yes: no symptom reported Eyes: Yes: no symptom reported Pulmonary: Yes no symptom reported Cardiovascular: Yes no symptom reported Gastrointestional: Yes: no symptom reported Genitourinary: Yes: no symptom reported Musculoskeletal: Yes: no symptom reported Skin: Yes no symptom reported Psychiatric/Neurological: Yes: no symptom reported Endocrine: Yes: no symptom reported Hematologic/Lymphatic: Yes: no symptom reported Physical Exam General Appearance: no apparent distress Skin: warm Respiratory: bilateral CTA Heart: S1S2 Abdomen: soft, bowel sounds present Genitourinary: bladder flat Extremities: pulses present Neurology: alert, confused Assessment Assessment IMP BRIAN-CR OF 2.3 WITH NO CKD-CR BETTER AT 1.4 TODAY HX OF AFIB BRADYCARDIA HYPOTENSION HX OF HTN FALL SYNCOPE RIGHT HUMERUS NECK FRACTURE-S/P ORIF URINARY TRACT INFECTION PLAN HYDRATION BETABLOCKER AND AMIODARONE ON HOLD ANTIBIOTICS ORTHOPEDIC EVAL AND TX MAINTAIN QUIROZ WILL FOLLOW BALDEMAR JOHNSON MD Jul 23, 2021 13:04
[2021-07-23 15:00] VITALS: BP 88/49
[2021-07-23] MEDS ORDERED: IV NORMAL SALINE 1000ML BAG 500 ML IV ONE (16:45)
[2021-07-23 19:08] VITALS: BP 109/55
[2021-07-23] MEDS: ATORVASTATIN CALCIUM 20 MG TABLET PO SCH (20:35)
[2021-07-23] MEDS: traZODone 50 MG TABLET. PO SCH (20:35)
[2021-07-23] MEDS ORDERED: AMOXICILLIN/K CLAV 500/125MG TABLET. PO SCH (21:00)
[2021-07-23 22:24] VITALS: BP 101/49
--- NOTE | 2021-07-23 22:37 | PN ---
DATE: 07/23/2021 SUBJECTIVE: The patient is resting, slightly propped up in bed, in no apparent respiratory distress. She is awake, alert. , she continued to have mild abdominal pain, mostly in the left upper quadrant. Denied any nausea or vomiting. The nursing staff stated she continued to have diarrhea. PHYSICAL EXAMINATION: GENERAL: When I examined her, she looked well and was clearly in no apparent distress, pale, not jaundiced or cyanosed. No thyromegaly. No jugular venous distention. No limb edema. VITAL SIGNS: Her heart rate was 70, blood pressure was still low at 87/50, temperature was 98.1, respiratory rate was 20, and oxygen saturation was 95% on 2 liters of oxygen. HEAD, EYES, EARS, NOSE, AND THROAT: Normocephalic, atraumatic. NECK: Supple. HEART: Normal first and second heart sounds. No gallop, rub or murmur. CHEST: Clear to auscultation, no crepitation or rhonchi. ABDOMEN: Distended with some mild tenderness in left upper quadrant, no guarding or rigidity. No organomegaly. All hernial orifice intact. Bowel sounds normal. NEUROLOGIC: She is definitely more awake, alert, responding appropriately. All her cranial nerves are intact. She moves extremities without difficulty. Her right upper extremity is in a sling as she underwent open reduction and internal fixation of her right humeral fracture. She has an indwelling Key catheter. Her intake was 490, output was 1925. LABORATORY DATA: As of this morning, her serum sodium was 136, potassium 3.5, chloride 102, bicarbonate 22, anion gap of 12, BUN 26, creatinine 1.4, estimated GFR was 36 mL per minute, her glucose was 76, lactic acid was 1.8, calcium was 6.1. Total bilirubin, AST, ALT, alkaline phosphatase are normal. Total protein 4.8, albumin was 1.6 and serum lipase was 277. Her white cell count was 9600, hemoglobin 8.6, hematocrit 25.7, MCV 84 and platelet count 226,000. ASSESSMENT: 1. Fall with resultant right proximal humerus fracture, status post open reduction and internal fixation. 2. Symptomatic sinus bradycardia for which we held her metoprolol and amiodarone. 3. Osteoporosis. 4. Generalized osteoarthritis. 5. Acute abdomen with the patient was found to have acute pancreatitis that has actually improved. Her serum lipase today was only 277. 6. Urinary retention requiring indwelling Key catheter. 7. Acute kidney injury. Creatinine has risen from 0.9 to 2.3. She was started on IV fluid and her creatinine is down to 1.4. 8. The patient has multiple other medical problems including: A. Chylothorax and empyema, status post video-assisted thoracoscopic surgery. B. Atrial fibrillation. C. Hypothyroidism. D. Hyperparathyroidism. E. Hypertension, however, the patient is hypotensive. F. Hyperlipidemia. PLAN: To start him on a clear liquid diet and give her a bolus of normal saline and continue at 100 mL per hour. Repeat all her lab works again and we will start physical and occupational therapy. CALI/AMIRA/VANDANA DR: CALI/jose TID: [id number]
[2021-07-24] MEDS: IV NORMAL SALINE 1000ML BAG 1,000 ML IV SCH ×3 (01:00→20:33)
[2021-07-24 02:24] VITALS: BP 125/62
[2021-07-24] MEDS: fentaNYL PF VIAL 100 MCG/2 ML VIAL IVP PRN (04:30)
[2021-07-24 05:21] LABS: HEMATOCRIT 24.5 % (36.0-47.0); HEMOGLOBIN 8.1 g/dL (12.0-15.5); RED BLOOD COUNT 2.92 x10^6/uL (3.50-5.40); RED CELL DISTRIBUTION WIDTH 20.3 % (11.5-14.5); WHITE BLOOD COUNT 8.8 x10^3/uL (4.0-11.0)
[2021-07-24] MEDS: LEVOTHYROXINE 125 MCG TABLET PO SCH (06:11)
[2021-07-24 07:00] VITALS: BP 117/56
[2021-07-24 07:07] LABS: ALBUMIN 1.4 g/dL (3.4-5.0); ALBUMIN/GLOBULIN RATIO 0.4 (1.0-1.7); CREATININE 0.9 mg/dL (0.6-1.0); GFR 60.9; POTASSIUM 3.2 mmol/L (3.5-5.1); TOTAL BILIRUBIN 0.5 mg/dL (0.2-1.0); TOTAL PROTEIN 4.7 g/dL (6.4-8.2)
[2021-07-24] MEDS: SENNOSIDES/DOCUSATE 8.6/50MG TABLET. PO SCH (07:40)
--- NOTE | 2021-07-24 09:21 | PDOC ---
Infectious Disease Note Subjective Subjective Complaining of right shoulder pain otherwise feeling good ROS ROS No nausea vomiting diarrhea chest pain shortness of breath Vital Sign Vital Signs Vital Signs Date Time Temp Pulse Resp B/P (MAP) Pulse Ox O2 Delivery O2 Flow Rate FiO2 07/24/21 02:24 98.0 64 20 125/62 (83) 96 Nasal Cannula 2.0 98.0 Physical Exam PHYSICAL EXAM GENERAL: Alert, oriented female, not in distress. VITAL SIGNS: Stable, afebrile. HEENT: Both pupils are round and reacting. No conjunctival lesion, no lesion in the mouth. NECK: Supple, no JVP, no lymphadenopathy. LUNGS: Clear. HEART: S1, S2, regular. ABDOMEN: Soft, nontender, no organomegaly. EXTREMITIES: No edema, cyanosis. SKIN: Unremarkable. Right shoulder post surgical dressing was not open. NEUROLOGIC: The patient is alert, awake, and appropriate. No focal neurologic deficit. Labs Lab Laboratory Tests Test 07/24/21 04:10 07/24/21 04:16 White Blood Count 8.8 x10^3/uL (4.0-11.0) Red Blood Count 2.92 x10^6/uL (3.50-5.40) Hemoglobin 8.1 g/dL (12.0-15.5) Hematocrit 24.5 % (36.0-47.0) Mean Corpuscular Volume 84 fL (79-100) Mean Corpuscular Hemoglobin 28 pg (25-35) Mean Corpuscular Hemoglobin Concent 33 g/dL (31-37) Red Cell Distribution Width 20.3 % (11.5-14.5) Platelet Count 252 x10^3/uL (140-400) Sodium Level 137 mmol/L (136-145) Potassium Level 3.2 mmol/L (3.5-5.1) Chloride Level 106 mmol/L (98-107) Carbon Dioxide Level 21 mmol/L (21-32) Anion Gap 10 (6-14) Blood Urea Nitrogen 20 mg/dL (7-20) Creatinine 0.9 mg/dL (0.6-1.0) Estimated GFR (Cockcroft-Gault) 60.9 BUN/Creatinine Ratio 22 (6-20) Glucose Level 64 mg/dL (70-99) Calcium Level 6.0 mg/dL (8.5-10.1) Total Bilirubin 0.5 mg/dL (0.2-1.0) Aspartate Amino Transf (AST/SGOT) 26 U/L (15-37) Alanine Aminotransferase (ALT/SGPT) 14 U/L (14-59) Alkaline Phosphatase 90 U/L (46-116) Total Protein 4.7 g/dL (6.4-8.2) Albumin 1.4 g/dL (3.4-5.0) Albumin/Globulin Ratio 0.4 (1.0-1.7) Lipase 129 U/L (73-393) Micro Microbiology 07/22/21 Blood Culture - Preliminary, Resulted NO GROWTH AFTER 1 DAY Objective Assessment IMPRESSION: 1. Status post fall with right proximal humerus fracture, status post open reduction and internal fixation. 2. Hypotension, likely from the dehydration. 3. Acute kidney injury. 4. Elevated lipase of unclear significance, it improved in a day significantly. 5. Pulmonary infiltrate, which is a combination of CHF and/or atelectasis from pleural effusion. [facility] BENITO BANERJEE MD Jul 24, 2021 09:21
[2021-07-24] MEDS: SERTRALINE 50 MG TABLET. PO SCH (10:25)
[2021-07-24] MEDS: MEGESTROL 400 MG/10 ML ORAL.SUSP. PO SCH (10:25)
[2021-07-24] MEDS: CHOLECALCIFEROL (VITAMIN D3) 1,000 UNIT TABLET PO SCH (10:25)
[2021-07-24] MEDS: MULTIVITAMIN with MINERAL TABLET. PO SCH (10:25)
[2021-07-24] MEDS: GABAPENTIN 300 MG CAPSULE. PO SCH ×3 (10:25→20:32)
[2021-07-24] MEDS: LACTOBACILLUS RHAMNOSUS GG 1 CAPSULE. PO SCH ×2 (10:26→20:32)
[2021-07-24] MEDS: oxyCODONE/APAP 5/325 1 TAB TABLET PO PRN (10:34)
[2021-07-24] MEDS: ONDANSETRON PF 4 MG/2 ML VIAL. IVP PRN (10:42)
[2021-07-24 11:00] VITALS: BP 99/49
--- NOTE | 2021-07-24 11:16 | PDOC ---
Renal-Progress Notes Subjective Notes Notes NO NEW COMPLAINTS History of Present Illness Hx of present illness STABLE Vitals Vitals Vital Signs Date Time Temp Pulse Resp B/P (MAP) Pulse Ox O2 Delivery O2 Flow Rate FiO2 07/24/21 10:34 93 Nasal Cannula 1.0 07/24/21 07:00 98.2 60 20 117/56 (76) 98.2 Weight Weight [ ] I.O. Intake and Output Intake and Output 07/24/21 07:00 Intake Total 1450 ml Output Total 925 ml Balance 525 ml Intake Oral 400 ml IV Total 1050 ml Output Urine Total 925 ml # Bowel Movements 3 Labs Labs Laboratory Tests Test 07/24/21 04:10 07/24/21 04:16 White Blood Count 8.8 x10^3/uL (4.0-11.0) Red Blood Count 2.92 x10^6/uL (3.50-5.40) Hemoglobin 8.1 g/dL (12.0-15.5) Hematocrit 24.5 % (36.0-47.0) Mean Corpuscular Volume 84 fL (79-100) Mean Corpuscular Hemoglobin 28 pg (25-35) Mean Corpuscular Hemoglobin Concent 33 g/dL (31-37) Red Cell Distribution Width 20.3 % (11.5-14.5) Platelet Count 252 x10^3/uL (140-400) Sodium Level 137 mmol/L (136-145) Potassium Level 3.2 mmol/L (3.5-5.1) Chloride Level 106 mmol/L (98-107) Carbon Dioxide Level 21 mmol/L (21-32) Anion Gap 10 (6-14) Blood Urea Nitrogen 20 mg/dL (7-20) Creatinine 0.9 mg/dL (0.6-1.0) Estimated GFR (Cockcroft-Gault) 60.9 BUN/Creatinine Ratio 22 (6-20) Glucose Level 64 mg/dL (70-99) Calcium Level 6.0 mg/dL (8.5-10.1) Total Bilirubin 0.5 mg/dL (0.2-1.0) Aspartate Amino Transf (AST/SGOT) 26 U/L (15-37) Alanine Aminotransferase (ALT/SGPT) 14 U/L (14-59) Alkaline Phosphatase 90 U/L (46-116) Total Protein 4.7 g/dL (6.4-8.2) Albumin 1.4 g/dL (3.4-5.0) Albumin/Globulin Ratio 0.4 (1.0-1.7) Lipase 129 U/L (73-393) Micro Micro Microbiology 07/22/21 Blood Culture - Preliminary, Resulted NO GROWTH AFTER 1 DAY Review of Systems Constitutional: yes: other (CONFUSED) Ears/Nose/Throat: Yes: no symptom reported Eyes: Yes: no symptom reported Pulmonary: Yes no symptom reported Cardiovascular: Yes no symptom reported Gastrointestional: Yes: no symptom reported Genitourinary: Yes: no symptom reported Musculoskeletal: Yes: no symptom reported Skin: Yes no symptom reported Psychiatric/Neurological: Yes: no symptom reported Endocrine: Yes: no symptom reported Hematologic/Lymphatic: Yes: no symptom reported Physical Exam General Appearance: no apparent distress Skin: warm Respiratory: bilateral CTA Heart: S1S2 Abdomen: soft, bowel sounds present Genitourinary: bladder flat Extremities: pulses present Neurology: alert, confused Assessment Assessment IMP BRIAN-CR OF 2.3 WITH NO CKD-RESOLVED HYPOKALEMIA HYPOCALCEMIA-CORRECTED CA OF ABOUT 7.4 MALNUTRITION HX OF AFIB BRADYCARDIA-CORRECTED HYPOTENSION-IMPROVED HX OF HTN FALL SYNCOPE RIGHT HUMERUS NECK FRACTURE-S/P ORIF URINARY TRACT INFECTION VIT D DEFICIENCY PLAN HYDRATION BETABLOCKER AND AMIODARONE ON HOLD REPLACE K CONT WITH VIT D AND CALCIUM ANTIBIOTICS ORTHOPEDIC EVAL AND TX MAINTAIN QUIROZ WILL FOLLOW BALDEMAR JOHNSON MD Jul 24, 2021 11:16
--- NOTE | 2021-07-24 12:29 | NUR ---
SS following up with discharge planning. SS reviewed pt chart and discussed with pt RN. Pt is LTC resident from [facility], ; fax [phone]. COVID19 negative. Pt is currently requiring oxygen at two liters nasal canula. PT/OT recommended care home unit. Pt on PO Levaquin. Clinical updates phoned and faxed to [facility]. SS will continue to follow for discharge planning.
[2021-07-24 15:00] VITALS: BP 119/58
[2021-07-24] MEDS: CALCIUM CARB/VIT D3 500/200 TABLET. PO SCH (15:42)
--- NOTE | 2021-07-24 15:54 | PN ---
DATE: 07/24/2021 SUBJECTIVE: The patient is resting, slightly propped up in bed, sleeping comfortably, in no apparent distress. She is arousable. On questioning her, denied any complaint. PHYSICAL EXAMINATION: GENERAL: When I examined her, she looked pale, not jaundiced or cyanosed, no lymphadenopathy, no thyromegaly, no jugular venous distention. No limb edema. VITAL SIGNS: Her heart rate was 64, blood pressure was 125/62, temperature was 98, respiratory rate 20, and oxygen saturation was 96%. HEAD, EYES, EARS, NOSE, AND THROAT: Normocephalic, atraumatic. NECK: Supple. HEART: Showed normal first and second heart sounds, no gallop or murmur. CHEST: Clear to auscultation. No crepitation or rhonchi. ABDOMEN: Distended, soft, nontender. NEUROLOGIC: She was sleepy, but arousable. All cranial nerves intact. Moves extremities without difficulty. LABORATORY DATA: Her intake was 1150 output was 570. As of this morning, her white cell count was 8800, hemoglobin 8.1, hematocrit 24, MCV 84 and platelet count 252,000. Her chemistry showed a serum sodium 137, potassium 3.2, chloride 106, bicarbonate 21, anion gap of 10, BUN 20, creatinine 0.9. Estimated GFR was 61 mL per minute. Her glucose was 64, calcium was 6. Total bilirubin, AST, ALT, alkaline phosphatase were normal. Total protein 4.7, albumin was 1.7. Serum lipase was 129. Her blood cultures are so far negative. ASSESSMENT: 1. Fall with resultant right proximal humerus fracture, status post open reduction and internal fixation. 2. Symptomatic sinus bradycardia for which we held her metoprolol and amiodarone. 3. Osteoporosis. 4. Generalized osteoarthritis. 5. Acute pancreatitis. Serum lipase has risen up to more than 1000 and is now back to within normal range today. 6. Urinary retention requiring indwelling Key catheter. 7. Acute kidney injury with a creatinine that has risen from 0.9-2.4. Today, serum creatinine is down to 0.9. 8. The patient has multiple other medical problems including: A. Chylothorax and empyema, status post video-assisted thoracoscopic surgery. B. Atrial fibrillation. C. Hypothyroidism. D. Hyperparathyroidism. E. Hypertension; however, the patient is normotensive. F. Hyperlipidemia. PLAN: To advance her diet as tolerated. I started her also on calcium and vitamin D. Continue with physical and occupational therapy and hopefully if she remains stable, she can be discharged back to [facility]. MYA/STEFANY DR: Meeta TID: [id number]
[2021-07-24] MEDS ORDERED: POTASSIUM CHLORIDE 20 MEQ TABLET.ER. PO ONE (16:00)
[2021-07-24 19:00] VITALS: BP 133/62
[2021-07-24] MEDS: ATORVASTATIN CALCIUM 20 MG TABLET PO SCH (20:32)
[2021-07-24 22:24] VITALS: BP 119/60
[2021-07-24] MEDS: traZODone 50 MG TABLET. PO SCH (23:51)
[2021-07-25 02:17] VITALS: BP 115/58
[2021-07-25 05:27] LABS: HEMOGLOBIN 8.8 g/dL (12.0-15.5); RED BLOOD COUNT 3.23 x10^6/uL (3.50-5.40); RED CELL DISTRIBUTION WIDTH 20.8 % (11.5-14.5); WHITE BLOOD COUNT 9.7 x10^3/uL (4.0-11.0)
[2021-07-25 05:53] LABS: ALBUMIN 1.5 g/dL (3.4-5.0); ALBUMIN/GLOBULIN RATIO 0.4 (1.0-1.7); CREATININE 0.6 mg/dL (0.6-1.0); GFR 97.2; POTASSIUM 3.3 mmol/L (3.5-5.1); TOTAL BILIRUBIN 0.5 mg/dL (0.2-1.0); TOTAL PROTEIN 5.3 g/dL (6.4-8.2)
[2021-07-25 06:24] VITALS: BP 148/62
[2021-07-25] MEDS: LEVOTHYROXINE 125 MCG TABLET PO SCH (06:39)
[2021-07-25] MEDS: IV NORMAL SALINE 1000ML BAG 1,000 ML IV SCH ×2 (07:00→17:00)
[2021-07-25] MEDS: SENNOSIDES/DOCUSATE 8.6/50MG TABLET. PO SCH (08:03)
[2021-07-25] MEDS: MEGESTROL 400 MG/10 ML ORAL.SUSP. PO SCH ×2 (09:00→09:59)
--- NOTE | 2021-07-25 09:20 | PDOC ---
Infectious Disease Note Subjective Subjective Complaining of right shoulder pain otherwise feeling good ROS ROS No nausea vomiting diarrhea Vital Sign Vital Signs Vital Signs Date Time Temp Pulse Resp B/P (MAP) Pulse Ox O2 Delivery O2 Flow Rate FiO2 07/25/21 06:24 98.0 64 20 148/62 (90) 91 Nasal Cannula 1.3 98.0 Physical Exam PHYSICAL EXAM GENERAL: Alert, oriented female, not in distress. VITAL SIGNS: Stable, afebrile. HEENT: Both pupils are round and reacting. No conjunctival lesion, no lesion in the mouth. NECK: Supple, no JVP, no lymphadenopathy. LUNGS: Clear. HEART: S1, S2, regular. ABDOMEN: Soft, nontender, no organomegaly. EXTREMITIES: No edema, cyanosis. SKIN: Unremarkable. Right shoulder post surgical dressing was not open. NEUROLOGIC: The patient is alert, awake, and appropriate. No focal neurologic deficit. Labs Lab Laboratory Tests Test 07/25/21 04:30 White Blood Count 9.7 x10^3/uL (4.0-11.0) Red Blood Count 3.23 x10^6/uL (3.50-5.40) Hemoglobin 8.8 g/dL (12.0-15.5) Hematocrit 28.0 % (36.0-47.0) Mean Corpuscular Volume 87 fL (79-100) Mean Corpuscular Hemoglobin 27 pg (25-35) Mean Corpuscular Hemoglobin Concent 32 g/dL (31-37) Red Cell Distribution Width 20.8 % (11.5-14.5) Platelet Count 251 x10^3/uL (140-400) Sodium Level 136 mmol/L (136-145) Potassium Level 3.3 mmol/L (3.5-5.1) Chloride Level 105 mmol/L (98-107) Carbon Dioxide Level 18 mmol/L (21-32) Anion Gap 13 (6-14) Blood Urea Nitrogen 14 mg/dL (7-20) Creatinine 0.6 mg/dL (0.6-1.0) Estimated GFR (Cockcroft-Gault) 97.2 BUN/Creatinine Ratio 23 (6-20) Glucose Level 53 mg/dL (70-99) Calcium Level 6.0 mg/dL (8.5-10.1) Total Bilirubin 0.5 mg/dL (0.2-1.0) Aspartate Amino Transf (AST/SGOT) 36 U/L (15-37) Alanine Aminotransferase (ALT/SGPT) 18 U/L (14-59) Alkaline Phosphatase 100 U/L (46-116) Total Protein 5.3 g/dL (6.4-8.2) Albumin 1.5 g/dL (3.4-5.0) Albumin/Globulin Ratio 0.4 (1.0-1.7) Micro Microbiology 07/22/21 Blood Culture - Preliminary, Resulted NO GROWTH AFTER 1 DAY Objective Assessment IMPRESSION: 1. Status post fall with right proximal humerus fracture, status post open reduction and internal fixation. 2. Hypotension, likely from the dehydration. 3. Acute kidney injury. 4. Elevated lipase of unclear significance, it improved in a day significantly. 5. Pulmonary infiltrate, which is a combination of CHF and/or atelectasis from pleural effusion. Plan Plan of Care Okay to DC to [facility] for 7 days total BENITO BANERJEE MD Jul 25, 2021 09:20
[2021-07-25] MEDS: CALCIUM CARB/VIT D3 500/200 TABLET. PO SCH (09:55)
[2021-07-25] MEDS: SERTRALINE 50 MG TABLET. PO SCH (09:55)
[2021-07-25] MEDS: CHOLECALCIFEROL (VITAMIN D3) 1,000 UNIT TABLET PO SCH (09:55)
[2021-07-25] MEDS: GABAPENTIN 300 MG CAPSULE. PO SCH ×3 (09:56→20:22)
[2021-07-25] MEDS: LACTOBACILLUS RHAMNOSUS GG 1 CAPSULE. PO SCH ×2 (09:56→20:21)
[2021-07-25] MEDS: MULTIVITAMIN with MINERAL TABLET. PO SCH (09:56)
[2021-07-25 11:30] VITALS: BP 144/65
--- NOTE | 2021-07-25 11:46 | PDOC ---
Renal-Progress Notes Subjective Notes Notes NO NEW COMPLAINTS History of Present Illness Hx of present illness STABLE Vitals Vitals Vital Signs Date Time Temp Pulse Resp B/P (MAP) Pulse Ox O2 Delivery O2 Flow Rate FiO2 07/25/21 06:24 98.0 64 20 148/62 (90) 91 Nasal Cannula 1.3 98.0 Weight Weight [ ] I.O. Intake and Output Intake and Output 07/25/21 07:00 Intake Total 300 ml Output Total 750 ml Balance -450 ml Intake Oral 300 ml Output Urine Total 750 ml # Bowel Movements 2 Labs Labs Laboratory Tests Test 07/25/21 04:30 White Blood Count 9.7 x10^3/uL (4.0-11.0) Red Blood Count 3.23 x10^6/uL (3.50-5.40) Hemoglobin 8.8 g/dL (12.0-15.5) Hematocrit 28.0 % (36.0-47.0) Mean Corpuscular Volume 87 fL (79-100) Mean Corpuscular Hemoglobin 27 pg (25-35) Mean Corpuscular Hemoglobin Concent 32 g/dL (31-37) Red Cell Distribution Width 20.8 % (11.5-14.5) Platelet Count 251 x10^3/uL (140-400) Sodium Level 136 mmol/L (136-145) Potassium Level 3.3 mmol/L (3.5-5.1) Chloride Level 105 mmol/L (98-107) Carbon Dioxide Level 18 mmol/L (21-32) Anion Gap 13 (6-14) Blood Urea Nitrogen 14 mg/dL (7-20) Creatinine 0.6 mg/dL (0.6-1.0) Estimated GFR (Cockcroft-Gault) 97.2 BUN/Creatinine Ratio 23 (6-20) Glucose Level 53 mg/dL (70-99) Calcium Level 6.0 mg/dL (8.5-10.1) Total Bilirubin 0.5 mg/dL (0.2-1.0) Aspartate Amino Transf (AST/SGOT) 36 U/L (15-37) Alanine Aminotransferase (ALT/SGPT) 18 U/L (14-59) Alkaline Phosphatase 100 U/L (46-116) Total Protein 5.3 g/dL (6.4-8.2) Albumin 1.5 g/dL (3.4-5.0) Albumin/Globulin Ratio 0.4 (1.0-1.7) Micro Micro Microbiology 07/22/21 Blood Culture - Preliminary, Resulted NO GROWTH AFTER 2 DAYS 07/22/21 Urine Culture - Final, Complete 07/22/21 Antimicrobic Susceptibility - Final, Complete Review of Systems Constitutional: yes: other (CONFUSED) Ears/Nose/Throat: Yes: no symptom reported Eyes: Yes: no symptom reported Pulmonary: Yes no symptom reported Cardiovascular: Yes no symptom reported Gastrointestional: Yes: no symptom reported Genitourinary: Yes: no symptom reported Musculoskeletal: Yes: no symptom reported Skin: Yes no symptom reported Psychiatric/Neurological: Yes: no symptom reported Endocrine: Yes: no symptom reported Hematologic/Lymphatic: Yes: no symptom reported Physical Exam General Appearance: no apparent distress Skin: warm Respiratory: bilateral CTA Heart: S1S2 Abdomen: soft, bowel sounds present Genitourinary: bladder flat Extremities: pulses present Neurology: alert, confused Assessment Assessment IMP BRIAN-CR OF 2.3 WITH NO CKD-RESOLVED HYPOKALEMIA HYPOCALCEMIA-CORRECTED CA OF ABOUT 7.4 MALNUTRITION HX OF AFIB BRADYCARDIA-CORRECTED HYPOTENSION-IMPROVED HX OF HTN FALL SYNCOPE RIGHT HUMERUS NECK FRACTURE-S/P ORIF URINARY TRACT INFECTION VIT D DEFICIENCY PLAN HYDRATION BETABLOCKER AND AMIODARONE ON HOLD REPLACE K CONT WITH VIT D AND CALCIUM ANTIBIOTICS ORTHOPEDIC EVAL AND TX WILL SIGN OFF PLEASE CALL IF NEEDED BALDEMAR JOHNSON MD Jul 25, 2021 11:46
[2021-07-25] MEDS ORDERED: IOHEXOL 350 MG/ML 100 ML VIAL. IV ONE (12:00)
[2021-07-25] MEDS ORDERED: CONTRAST GIVEN. MC PRN (12:00)
--- NOTE | 2021-07-25 12:04 | PN ---
DATE: 07/25/2021 SUBJECTIVE: The patient is resting propped up in bed, somewhat tachypneic, hypoxic. She was initially on 4 liters and required an increase of up to 12 liters and maintaining her oxygen saturation more than 90%. She also complained of chest pain and cough. PHYSICAL EXAMINATION: GENERAL: When I examined her, she was pale, not jaundiced, cyanosed, no lymphadenopathy, no thyromegaly, no jugular venous distention. No limb edema. VITAL SIGNS: Her heart rate was 64, blood pressure was 148/62, temperature was 98, respiratory rate was 24 and oxygen saturation was 91% on 12 liters of oxygen by nasal cannula. HEAD, EYES, EARS, NOSE, AND THROAT: Normocephalic, atraumatic. NECK: Supple. HEART: Showed normal first and second heart sounds. No gallop, rub or murmur. CHEST: Clear to auscultation, no crepitation or rhonchi. ABDOMEN: Distended, soft, nontender. NEUROLOGIC: She was awake, alert, responding appropriately. All cranial nerves intact. She moves left upper extremity without difficulty. Her right upper extremity is in right shoulder immobilizer. She moves her extremities without difficulty. She has an indwelling Key catheter. Her intake was 1450, output was 925. LABORATORY DATA: Her white cell count was 9700, hemoglobin 8.8, hematocrit 28, MCV 87 and platelet count 251,000. Her chemistry showed a serum sodium 136, potassium 3.3, chloride 105, bicarbonate 18, anion gap of 13, BUN 14, creatinine 0.6. Estimated GFR was 97 mL per minute. Her glucose was 53, calcium was only 6 mg/dL, magnesium was 2. Her total bilirubin, AST, ALT, alkaline phosphatase were normal. Total protein was 5.3, albumin was 1.5. ASSESSMENT: 1. Fall with resultant right proximal humerus fracture, status post open reduction and internal fixation. 2. Symptomatic sinus bradycardia for which we held her metoprolol and amiodarone. 3. Osteoporosis. 4. Generalized osteoarthritis. 5. Acute pancreatitis, serum lipase has risen to more than 1000 now, yesterday came down to normal range. 6. Urinary retention requiring indwelling Key catheter. 7. Acute kidney injury with creatinine risen up to 2.4. Today's labs is 0.6 mg/dL. 8. The patient has multiple other medical problems including: A. Chylothorax and empyema, status post video-assisted thoracoscopic surgery. B. Atrial fibrillation. C. Hypothyroidism. D. Hyperparathyroidism. E. Hypertension; however, the patient is normotensive. F. Hyperlipidemia. PLAN: To arrange for a 12-lead EKG, CT angio of the chest and troponin. Continue with oxygen supplementation. I will increase her calcium and once we have the lab results, we will decide on further management accordingly. REGGIE DR: Meeta TID: [id number]
--- NOTE | 2021-07-25 12:05 | EKG ---
[facility] [address] [place] [address] Test Date: 2021-07-25 Test Time: 11:59:57 Pat Name: MARK HERNANDEZ Department: Room: [facility] Gender: F Professor Of Radiology: DAPHNEY : 1945 Requested By: FLAQUITO MENDES Order Number: [id number] Reading MD: Measurements Intervals [place] Rate: 67 P: 90 WV: 162 QRS: 3 QRSD: 140 T: 17 QT: 468 QTc: 498 Interpretive Statements SINUS RHYTHM NON SPECIFIC INTRAVENTRICULAR BLOCK RVH WITH REPOLARIZATION ABNORMALITY ABNORMAL ECG RI6.02 Compared to ECG 07/19/2021 08:13:59 Right ventricular hypertrophy now present Early repolarization now present Sinus bradycardia no longer present Prolonged QT interval no longer present
[2021-07-25] MEDS ORDERED: MAGNESIUM SULFATE 2GM 50 ML IV ONE (12:30)
[2021-07-25] MEDS ORDERED: POTASSIUM CHLORIDE 20 MEQ TABLET.ER. PO ONE (12:30)
--- NOTE | 2021-07-25 12:37 | NUR ---
SS following up with discharge planning. SS reviewed pt chart and discussed with pt RN. Pt is LTC resident from [facility], ; fax [phone]. COVID19 negative. Pt is currently requiring oxygen at seven liters nasal canula. PT/OT recommended [facility] unit. Pt on PO Levaquin. [facility] updated via phone. Per, Dr. Pratt, not medically ready for discharge. SS will continue to follow for discharge planning.
[2021-07-25] MEDS: CALCIUM CARBONATE 500 MG TABLET PO SCH ×2 (15:05→19:41)
[2021-07-25 15:06] VITALS: BP 140/66
[2021-07-25 19:11] VITALS: BP 132/63
[2021-07-25] MEDS: oxyCODONE/APAP 5/325 1 TAB TABLET PO PRN (19:48)
[2021-07-25] MEDS: traZODone 50 MG TABLET. PO SCH (20:22)
[2021-07-25] MEDS: ATORVASTATIN CALCIUM 20 MG TABLET PO SCH (20:22)
--- NOTE | 2021-07-25 21:21 | RAD ---
Study: XR CHEST 1V Indication: Increased O2 demand. Comparison: CT chest 07/19/2021 Findings: Worsened appearance of the chest from 07/19/2021 with progressive multifocal airspace opacities. Redemo nstrated small pleural effusion on the left and likely a component of left more so than right basilar volume loss. Unchanged soft tissue density thickening at the left lung apex. No pneumothorax. Promin ent size of the cardiomediastinal silhouette. Proximal humerus plate and screw fixation construct on the right. Osteopenia. Chronic rib deformities on the left. Impression: Worsened appearance of the chest from the 07/19/2021 CT with progressive multifocal airspace opacities. Small pleural effusion again seen on the left. In the setting of cardiomediastinal silhouette enlarg ement alveolar edema is possible however multifocal pneumonia should be considered. Electronically signed by: CORAL REGALADO MD (07/25/2021 9:19 PM) [facility]
[2021-07-25 22:16] VITALS: BP 107/54
[2021-07-26 02:06] VITALS: BP 110/56
[2021-07-26] MEDS: IV NORMAL SALINE 1000ML BAG 1,000 ML IV SCH (03:00)
[2021-07-26 03:30] LABS: BASO % 0 % (0-3); EOS # 0.3 x10^3/uL (0.0-0.7); EOS % 2 % (0-3); HEMOGLOBIN 8.1 g/dL (12.0-15.5); LYMPH # 1.3 x10^3/uL (1.0-4.8); LYMPH % 12 % (24-48); MEAN CORPUSCULAR HEMOGLOBIN 27 pg (25-35); MEAN CORPUSCULAR HGB CONC 33 g/dL (31-37); MEAN CORPUSCULAR VOLUME 83 fL (79-100); MONO # 0.8 x10^3/uL (0.0-1.1); MONO % 8 % (0-9); NEUT # 8.4 x10^3/uL (1.8-7.7); NEUT % 77 % (31-73); PLATELET COUNT 302 x10^3/uL (140-400); RED BLOOD COUNT 3.01 x10^6/uL (3.50-5.40); RED CELL DISTRIBUTION WIDTH 20.5 % (11.5-14.5); WHITE BLOOD COUNT 10.9 x10^3/uL (4.0-11.0)
[2021-07-26 03:37] LABS: PROTHROMBIN TIME PATIENT 14.1 SEC (11.7-14.0)
[2021-07-26 03:40] LABS: CALCIUM 6.4 mg/dL (8.5-10.1); CREATININE 0.7 mg/dL (0.6-1.0); GFR 81.4
--- NOTE | 2021-07-26 03:43 | NUR ---
IV assessment: 18G Right EJ placed by Jackson Cage CRNA. Pt tolerated procedure well. Will continue to monitor.
[2021-07-26] MEDS ORDERED: FUROSEMIDE 20 MG/2 ML VIAL. IVP ONE (03:45)
[2021-07-26] MEDS: POTASSIUM BICARB 20 MEQ EFFERVESCENT TABLET. PO SCH ×3 (04:03→06:10)
[2021-07-26] MEDS: ONDANSETRON PF 4 MG/2 ML VIAL. IVP PRN (05:01)
[2021-07-26] MEDS: LEVOTHYROXINE 125 MCG TABLET PO SCH (06:10)
[2021-07-26] MEDS: oxyCODONE/APAP 5/325 1 TAB TABLET PO PRN ×3 (06:11→22:45)
[2021-07-26 07:00] VITALS: BP 100/54
[2021-07-26] MEDS: MEGESTROL 400 MG/10 ML ORAL.SUSP. PO SCH (09:00)
[2021-07-26] MEDS: GABAPENTIN 300 MG CAPSULE. PO SCH ×3 (09:00→20:42)
[2021-07-26] MEDS: CHOLECALCIFEROL (VITAMIN D3) 5,000 UNIT CAPSULE PO SCH (09:35)
[2021-07-26] MEDS: SERTRALINE 50 MG TABLET. PO SCH (09:35)
[2021-07-26] MEDS: SENNOSIDES/DOCUSATE 8.6/50MG TABLET. PO SCH (09:35)
[2021-07-26] MEDS: LACTOBACILLUS RHAMNOSUS GG 1 CAPSULE. PO SCH ×2 (09:35→20:42)
[2021-07-26] MEDS: CALCIUM CARBONATE 500 MG TABLET PO SCH ×3 (09:35→17:07)
[2021-07-26] MEDS: MULTIVITAMIN with MINERAL TABLET. PO SCH (09:35)
--- NOTE | 2021-07-26 10:36 | RAD ---
Examination: Bilateral Lower Extremity Venous Doppler Ultrasound History: Bilateral lower extremity swelling Comparison: None Procedure: Burroughs scale, color flow 2D and spectal waveform analysis images are obtained with and witho ut compression in the area of the common femoral vein, superficial femoral vein - femoral vein juncti on, main femoral vein (superficial femoral vein) and popliteal vein. Veins of the proximal calf are a lso imaged. Findings: There is normal duplex flow, color flow and compressibility of all visualized vein segments. No evide nce of deep venous thrombus is present. Impression: No evidence of DVT in the bilateral lower extremity venous system. Electronically signed by: Augie Fong MD (07/26/2021 10:34 AM) [id number]
--- NOTE | 2021-07-26 10:56 | PDOC2 ---
CONSULT Date of Consult Date of Consult DATE: 07/26/21 TIME: 10:56 Reason for Consult Reason for Consult: Congestive heart failure Referring Physician Referring Physician: Dr. Pratt Identification/Chief Complaint Chief Complaint s/p Fall Source Source: Chart review, Patient History of Present Illness Reason for Visit: 76-year-old female with history of paroxysmal atrial fibrillation was transferred from [facility] in [place] where she was recuperating after lung mass removal, with right shoulder pain after she had a mechanical fall. She was diagnosed with proximal humeral fracture and admitted for further management. She successfully underwent surgical fixation by orthopedics team on 07/20/2021. Since she was bradycardic on admission, her metoprolol and amiodarone were held. Hospital course was complicated by pancreatitis. She was found to be short of breath with increasing oxygen requirement yesterday prompting car diology consultation. She is presently feeling better after she received intravenous Lasix. She denied any chest pain, palpitations or syncope. 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 (4) Hypokalemia Status: Acute (5) Hypovitaminosis D Status: Acute (6) Proximal humerus fracture Status: Acute (7) Symptomatic bradycardia Status: Acute Current Medications Current Medications Current Medications Iohexol (Omnipaque 300 Mg/ml) 75 ml 1X ONCE IV Last administered on 07/19/21at 07:51; Start 07/19/21 at 07:30; Stop 07/19/21 at 07:31; Status DC Info (CONTRAST GIVEN -- Rx MONITORING) 1 each PRN DAILY PRN MC SEE COMMENTS; Start 07/19/21 at 07:30; Stop 07/21/21 at 07:29; Status DC Morphine Sulfate (Morphine Sulfate) 2 mg 1X ONCE IVP Last administered on 07/19/21at 07:33; Start 07/19/21 at 07:30; Stop 07/19/21 at 07:31; Status DC Potassium Chloride/Water 100 ml @ 100 mls/hr Q1H IV Last administered on 07/19/21at 19:09; Start 07/19/21 at 09:00; Stop 07/19/21 at 10:59; Status DC Morphine Sulfate (Morphine Sulfate) 2 mg 1X ONCE IVP Last administered on 07/19/21at 08:25; Start 07/19/21 at 08:30; Stop 07/19/21 at 08:31; Status DC Ondansetron HCl (Zofran) 4 mg PRN Q8HRS PRN IVP NAUSEA/VOMITING; Start 07/19/21 at 09:30; Stop 07/20/21 at 09:29; Status DC Morphine Sulfate (Morphine Sulfate) 2 mg PRN Q2HR PRN IVP PAIN Last administered on 07/19/21at 22:30; Start 07/19/21 at 09:30; Stop 07/20/21 at 09:29; Status DC Morphine Sulfate (Morphine Sulfate) 2 mg PRN Q2HR PRN IVP PAIN; Start 07/19/21 at 09:45; Stop 07/19/21 at 16:45; Status DC Acetaminophen (Tylenol) 650 mg PRN Q6HRS PRN PO MILD PAIN / TEMP > 100.3'F Last administered on 07/23/21at 04:12; Start 07/19/21 at 12:00 Oxycodone/ Acetaminophen (Percocet 5/325) 1 tab PRN Q4HRS PRN PO MODERATE PAIN Last administered on 07/26/21at 06:11; Start 07/19/21 at 16:45 Oxycodone/ Acetaminophen (Percocet 5/325) 2 tab PRN Q4HRS PRN PO SEVERE PAIN Last administered on 07/25/21at 19:48; Start 07/19/21 at 17:00 Clindamycin Phosphate 50 ml @ 100 mls/hr 1X PREOP PRN IV PRIOR TO PROCEDURE Last administered on 07/20/21at 09:15; Start 07/19/21 at 18:00; Stop 07/20/21 at 09:24; Status DC Atorvastatin Calcium (Lipitor) 20 mg HS PO Last administered on 07/25/21at 20:22; Start 07/19/21 at 21:00 Gabapentin (Neurontin) 300 mg TID PO Last administered on 07/26/21at 09:00; Start 07/19/21 at 21:00 Lactulose (Lactulose) 10 gm PRN DAILY PRN PO CONSTIPATION, 2ND CHOICE; Start 07/19/21 at 20:00 Levothyroxine Sodium (Synthroid) 125 mcg DAILY06 PO Last administered on 07/26/21at 06:10; Start 07/20/21 at 03:30 Megestrol Acetate (Megace) 400 mg DAILY PO Last administered on 07/26/21at 09:00; Start 07/20/21 at 09:00 Sertraline HCl (Zoloft) 50 mg DAILY PO Last administered on 07/26/21at 09:35; Start 07/20/21 at 09:00 Trazodone HCl (Desyrel) 50 mg QHS PO Last administered on 07/25/21at 20:22; Start 07/19/21 at 21:00 Phenylephrine HCl (PHENYLEPHRINE in 0.9% NACL PF) 1 mg STK-MED ONCE IV ; Start 07/20/21 at 07:28; Stop 07/20/21 at 07:28; Status DC Ephedrine Sulfate (ePHEDrine PF IN SALINE SYRINGE) 50 mg STK-MED ONCE IV ; Start 07/20/21 at 07:28; Stop 07/20/21 at 07:28; Status DC Lidocaine HCl (Lidocaine Pf 2% Vial) 5 ml STK-MED ONCE .ROUTE ; Start 07/20/21 at 07:28; Stop 07/20/21 at 07:29; Status DC Ondansetron HCl (Zofran) 4 mg STK-MED ONCE .ROUTE ; Start 07/20/21 at 07:28; Stop 07/20/21 at 07:29; Status DC Dexamethasone Sodium Phosphate (Decadron) 4 mg STK-MED ONCE .ROUTE ; Start 07/20/21 at 07:28; Stop 07/20/21 at 07:29; Status DC Ondansetron HCl (Zofran) 4 mg STK-MED ONCE .ROUTE ; Start 07/20/21 at 07:28; Stop 07/20/21 at 07:29; Status DC Rocuronium [place] (Zemuron) 50 mg STK-MED ONCE .ROUTE ; Start 07/20/21 at 07:29; Stop 07/20/21 at 07:30; Status DC Fentanyl Citrate (Fentanyl 2ml Vial) 100 mcg STK-MED ONCE .ROUTE ; Start 07/20/21 at 07:31; Stop 07/20/21 at 07:31; Status DC Midazolam HCl (Versed) 2 mg STK-MED ONCE .ROUTE ; Start 07/20/21 at 08:01; Stop 07/20/21 at 08:01; Status DC Ropivacaine (Naropin 0.5%) 20 ml STK-MED ONCE .ROUTE ; Start 07/20/21 at 08:01; Stop 07/20/21 at 08:02; Status DC Phenylephrine HCl (Reji-Synephrine Inj) 10 mg STK-MED ONCE .ROUTE ; Start 07/20/21 at 08:44; Stop 07/20/21 at 08:44; Status DC Neostigmine [place] (Neostigmine Methylsulfate) 5 mg STK-MED ONCE .ROUTE ; Start 07/20/21 at 09:15; Stop 07/20/21 at 09:15; Status DC Sevoflurane (Ultane) 60 ml STK-MED ONCE IH ; Start 07/20/21 at 09:20; Stop 07/20/21 at 09:21; Status DC Levofloxacin/ Dextrose 100 ml @ 100 mls/hr Q24H IV Last administered on 07/21/21at 10:00; Start 07/20/21 at 10:00; Stop 07/21/21 at 15:58; Status DC Vancomycin HCl (Vancomycin) 1 gm STK-MED ONCE .ROUTE Last administered on 07/20/21at 08:57; Start 07/20/21 at 10:03; Stop 07/20/21 at 10:03; Status DC Sevoflurane (Ultane) 90 ml STK-MED ONCE IH ; Start 07/20/21 at 10:27; Stop 07/20/21 at 10:27; Status DC Fentanyl Citrate (Fentanyl 2ml Vial) 25 mcg PRN Q5MIN PRN IVP MILD PAIN 1-3; Start 07/20/21 at 11:00; Stop 07/20/21 at 14:00; Status DC Fentanyl Citrate (Fentanyl 2ml Vial) 50 mcg PRN Q5MIN PRN IVP MODERATE PAIN 4- 6; Start 07/20/21 at 11:00; Stop 07/20/21 at 14:00; Status DC Morphine Sulfate (Morphine Sulfate) 1 mg PRN Q10MIN PRN IVP SEVERE PAIN 7-10; Start 07/20/21 at 11:00; Stop 07/20/21 at 14:00; Status DC Ringer's Solution 1,000 ml @ 30 mls/hr Q24H IV Last administered on 07/20/21at 08:59; Start 07/20/21 at 11:00; Stop 07/20/21 at 22:59; Status DC Hydromorphone HCl (Dilaudid) 0.5 mg PRN Q10MIN PRN IVP SEVERE PAIN 7-10, 2nd CHOICE; Start 07/20/21 at 11:00; Stop 07/20/21 at 14:00; Status DC Prochlorperazine Edisylate (Compazine) 5 mg PACU PRN PRN IVP NAUSEA, MRX1 Last administered on 07/20/21at 11:15; Start 07/20/21 at 11:00; Stop 07/20/21 at 14:00; Status DC Fentanyl Citrate (Fentanyl 2ml Vial) 50 mcg PRN Q1HR PRN IVP SEVERE PAIN 7-10 Last administered on 07/24/21at 04:30; Start 07/20/21 at 12:00 Multivitamins (Thera M Plus) 1 tab DAILY PO Last administered on 07/26/21at 09:35; Start 07/21/21 at 09:00 Senna/Docusate Sodium (Senna Plus) 1 tab DAILY PO Last administered on 07/26/21at 09:35; Start 07/21/21 at 09:00 Polyethylene Glycol (miraLAX PACKET) 17 gm PRN DAILY PRN PO CONSTIPATION, 1ST CHOICE; Start 07/20/21 at 11:00 Vitamin D (Vitamin D3) 1,000 unit DAILY PO Last administered on 07/25/21at 09:55; Start 07/21/21 at 09:00; Stop 07/25/21 at 11:37; Status DC Sodium Chloride 1,000 ml @ 75 mls/hr [id number] IV Last administered on 07/20/21at 12:48; Start 07/20/21 at 13:00; Stop 07/21/21 at 09:25; Status DC Clindamycin Phosphate 50 ml @ 100 mls/hr Q6H IV Last administered on 07/21/21at 03:01; Start 07/20/21 at 15:00; Stop 07/21/21 at 03:29; Status DC Ondansetron HCl (Zofran) 4 mg PRN Q4HRS PRN IVP NAUSEA/VOMITING Last adminis tered on 07/26/21at 05:01; Start 07/20/21 at 11:00 Magnesium Hydroxide (Milk Of Magnesia) 2,400 mg 1X PRN PRN PO CONSTIPATION; St art 07/21/21 at 06:00; Stop 07/22/21 at 05:59; Status DC Bisacodyl (Dulcolax Supp) 10 mg 1X PRN PRN LA CONSTIPATION; Start 07/21/21 at 16:00; Stop 07/22/21 at 15:59; Status DC Dextrose (Dextrose 50%-Water Syringe) 12.5 gm PRN Q15MIN PRN IV SEE COMMENTS; Start 07/20/21 at 11:00 Oxycodone/ Acetaminophen (Percocet 5/325) i-ii po q4hrs prn pain PRN Q4HRS PRN PO PAIN; Start 07/20/21 at 11:00; Status UNV Prochlorperazine Edisylate (Compazine) 10 mg STK-MED ONCE .ROUTE ; Start 07/20/21 at 11:11; Stop 07/20/21 at 11:11; Status DC Phenylephrine HCl (PHENYLEPHRINE in 0.9% NACL PF) 1 mg STK-MED ONCE IV ; Start 07/20/21 at 11:54; Stop 07/20/21 at 11:55; Status DC Ergocalciferol (Vitamin D2) 50,000 unit WEEKLY PO Last administered on 07/22/21at 09:06; Start 07/22/21 at 09:00; Stop 08/26/21 at 09:01 Levofloxacin (Levaquin) 250 mg DAILY06 PO Last administered on 07/22/21at 05:58; Start 07/22/21 at 06:00; Stop 07/22/21 at 12:45; Status DC Lactobacillus Rhamnosus (Culturelle) 1 cap BID PO Last administered on 07/26/21at 09:35; Start 07/21/21 at 21:00 Sodium Chloride 500 ml @ 500 mls/hr 1X ONCE IV Last administered on 07/22/21at 09:11; Start 07/22/21 at 09:00; Stop 07/22/21 at 09:59; Status DC Sodium Chloride 1,000 ml @ 100 mls/hr Q10H IV Last administered on 07/24/21at 20:33; Start 07/22/21 at 09:00; Stop 07/26/21 at 10:06; Status DC Meropenem 500 mg/ Sodium Chloride 50 ml @ 100 mls/hr Q12HR IV Last administere d on 07/23/21at 09:07; Start 07/22/21 at 14:00; Stop 07/23/21 at 09:12; Status DC Linezolid/Dextrose 300 ml @ 300 mls/hr Q12HR IV Last administered on 07/22/21at 22:15; Start 07/22/21 at 13:00; Stop 07/23/21 at 09:12; Status DC Amoxicillin/ Clavulanate Potassium (Augmentin 500/ 125mg) 1 tab BID PO ; Start 07/23/21 at 21:00; Stop 07/23/21 at 09:24; Status DC Levofloxacin (Levaquin) 500 mg DAILY06 PO Last administered on 07/26/21at 06:11; Start 07/23/21 at 10:00; Stop 07/26/21 at 23:00 Sodium Chloride 500 ml @ 500 mls/hr 1X ONCE IV Last administered on 07/23/21at 12:36; Start 07/23/21 at 12:15; Stop 07/23/21 at 13:14; Status DC Sodium Chloride 500 ml @ 500 mls/hr 1X ONCE IV ; Start 07/23/21 at 16:45; Stop 07/23/21 at 17:20; Status DC Sodium Chloride 500 ml @ 250 mls/hr 1X ONCE IV Last administered on 07/23/21at 17:20; Start 07/23/21 at 17:45; Stop 07/23/21 at 19:44; Status DC Calcium/Vitamin D (Oscal D 500mg/ 200uts) 1 tab BIDWMEALS PO Last administered on 07/25/21at 09:55; Start 07/24/21 at 17:00; Stop 07/25/21 at 11:31; Status DC Potassium Chloride (Klor-Con) 40 meq 1X ONCE PO Last administered on 07/24/21at 15:42; Start 07/24/21 at 16:00; Stop 07/24/21 at 16:01; Status DC Calcium Carbonate/ Glycine (Oscal) 1,000 mg TIDAFTMEAL PO Last administered on 07/26/21at 09:35; Start 07/25/21 at 13:00 Magnesium Sulfate 50 ml @ 25 mls/hr 1X ONCE IV ; Start 07/25/21 at 12:30; Stop 07/25/21 at 14:29; Status DC Vitamin D (Vitamin D3) 5,000 unit DAILY PO Last administered on 07/26/21at 09:35; Start 07/26/21 at 09:00 Iohexol (Omnipaque 350 Mg/ml) 90 ml 1X ONCE IV ; Start 07/25/21 at 12:00; Stop 07/25/21 at 12:01; Status DC Potassium Chloride (Klor-Con) 20 meq 1X ONCE PO Last administered on 07/25/21at 15:05; Start 07/25/21 at 12:30; Stop 07/25/21 at 12:31; Status DC Info (CONTRAST GIVEN -- Rx MONITORING) 1 each PRN DAILY PRN MC SEE COMMENTS; Start 07/25/21 at 12:00; Stop 07/27/21 at 11:59 Furosemide (Lasix) 20 mg 1X ONCE IVP Last administered on 07/26/21at 04:57; Start 07/26/21 at 03:45; Stop 07/26/21 at 03:46; Status DC Potassium Bicarbonate (Potassium Effervescent Tablet) 40 meq Q1HR PO Last administered on 07/26/21at 06:10; Start 07/26/21 at 04:00; Stop 07/26/21 at 06:01; Status DC Active Scripts Active Reported Trazodone Hcl 50 Mg Tablet 1 Tab PO QHS Zoloft (Sertraline Hcl) 50 Mg Tablet 1 Tab PO DAILY Polyethylene Glycol 3350 2,500 Gm Powder 17 Gm PO DAILY Metoprolol Tartrate 25 Mg Tablet 1 Tab PO BID Megestrol Acetate 400 Mg/10 Ml Oral.susp 400 Mg PO DAILY Levothyroxine Sodium 125 Mcg Tablet 1 Tab PO DAILY Lactulose 20 Gm/30 Ml Solution 10 Gm PO PRN DAILY Gabapentin 300 Mg Capsule 300 Mg PO TID Atorvastatin Calcium 20 Mg Tablet 1 Tab PO HS Amiodarone Hcl 200 Mg Tablet 1 Tab PO BID Allergies Allergies: Coded Allergies: Penicillins (Verified Allergy, Intermediate, 07/19/21) Sulfa (Sulfonamide Antibiotics) (Verified Allergy, Intermediate, 07/19/21) ROS PSYCHOLOGICAL ROS: No: Hallucinations Eyes: No Loss of vision HEENT: No: Epistaxis Respiratory: YES: Shortness of breath; No: Hemoptysis Cardiovascular: No Chest Pain Gastrointestinal: No Vomiting Genitourinary: No Hematuria Neurological: No Seizures Skin: No Rash Physical Exam General: Alert, Cooperative, No acute distress HEENT: Atraumatic Lungs: Other (Bilateral fine crepitations) Heart: Regular rate Abdomen: Soft Neuro: Normal speech Psych/Mental Status: Mood NL Vitals VITALS Vital Signs Date Time Temp Pulse Resp B/P (MAP) Pulse Ox O2 Delivery O2 Flow Rate FiO2 07/26/21 08:00 Nasal Cannula 6.0 07/26/21 07:00 98.3 66 18 100/54 (69) 100 98.3 Labs Labs Laboratory Tests Test 07/25/21 04:30 07/25/21 11:42 07/25/21 20:45 07/26/21 03:10 White Blood Count 9.7 x10^3/uL (4.0-11.0) 10.9 x10^3/uL (4.0-11.0) Red Blood Count 3.23 x10^6/uL (3.50-5.40) 3.01 x10^6/uL (3.50-5.40) Hemoglobin 8.8 g/dL (12.0-15.5) 8.1 g/dL (12.0-15.5) Hematocrit 28.0 % (36.0-47.0) 25.0 % (36.0-47.0) Mean Corpuscular Volume 87 fL (79-100) 83 fL (79-100) Mean Corpuscular Hemoglobin 27 pg (25-35) 27 pg (25-35) Mean Corpuscular Hemoglobin Concent 32 g/dL (31-37) 33 g/dL (31-37) Red Cell Distribution Width 20.8 % (11.5-14.5) 20.5 % (11.5-14.5) Platelet Count 251 x10^3/uL (140-400) 302 x10^3/uL (140-400) Sodium Level 136 mmol/L (136-145) 136 mmol/L (136-145) Potassium Level 3.3 mmol/L (3.5-5.1) 3.0 mmol/L (3.5-5.1) Chloride Level 105 mmol/L (98-107) 105 mmol/L (98-107) Carbon Dioxide Level 18 mmol/L (21-32) 24 mmol/L (21-32) Anion Gap 13 (6-14) 7 (6-14) Blood Urea Nitrogen 14 mg/dL (7-20) 10 mg/dL (7-20) Creatinine 0.6 mg/dL (0.6-1.0) 0.7 mg/dL (0.6-1.0) Estimated GFR (Cockcroft-Gault) 97.2 81.4 BUN/Creatinine Ratio 23 (6-20) Glucose Level 53 mg/dL (70-99) 98 mg/dL (70-99) Calcium Level 6.0 mg/dL (8.5-10.1) 6.4 mg/dL (8.5-10.1) Total Bilirubin 0.5 mg/dL (0.2-1.0) Aspartate Amino Transf (AST/SGOT) 36 U/L (15-37) Alanine Aminotransferase (ALT/SGPT) 18 U/L (14-59) Alkaline Phosphatase 100 U/L (46-116) Total Protein 5.3 g/dL (6.4-8.2) Albumin 1.5 g/dL (3.4-5.0) Albumin/Globulin Ratio 0.4 (1.0-1.7) Troponin I High Sensitivity 17 ng/L (4-50) 23 ng/L (4-50) 19 ng/L (4-50) Neutrophils (%) (Auto) 77 % (31-73) Lymphocytes (%) (Auto) 12 % (24-48) Monocytes (%) (Auto) 8 % (0-9) Eosinophils (%) (Auto) 2 % (0-3) Basophils (%) (Auto) 0 % (0-3) Neutrophils # (Auto) 8.4 x10^3/uL (1.8-7.7) Lymphocytes # (Auto) 1.3 x10^3/uL (1.0-4.8) Monocytes # (Auto) 0.8 x10^3/uL (0.0-1.1) Eosinophils # (Auto) 0.3 x10^3/uL (0.0-0.7) Basophils # (Auto) 0.0 x10^3/uL (0.0-0.2) Prothrombin Time 14.1 SEC (11.7-14.0) Prothromb Time International Ratio 1.1 (0.8-1.1) Activated Partial Thromboplast Time 41 SEC (24-38) Lactic Acid Level 0.7 mmol/L (0.4-2.0) TT-Urx-Q-Type Natriuretic Peptide 3488 pg/mL (0-449) Lipase 165 U/L (73-393) Procalcitonin 0.24 ng/mL (0.00-0.10) Laboratory Tests Test 07/25/21 11:42 07/25/21 20:45 07/26/21 03:10 Troponin I High Sensitivity 17 ng/L (4-50) 23 ng/L (4-50) 19 ng/L (4-50) White Blood Count 10.9 x10^3/uL (4.0-11.0) Red Blood Count 3.01 x10^6/uL (3.50-5.40) Hemoglobin 8.1 g/dL (12.0-15.5) Hematocrit 25.0 % (36.0-47.0) Mean Corpuscular Volume 83 fL (79-100) Mean Corpuscular Hemoglobin 27 pg (25-35) Mean Corpuscular Hemoglobin Concent 33 g/dL (31-37) Red Cell Distribution Width 20.5 % (11.5-14.5) Platelet Count 302 x10^3/uL (140-400) Neutrophils (%) (Auto) 77 % (31-73) Lymphocytes (%) (Auto) 12 % (24-48) Monocytes (%) (Auto) 8 % (0-9) Eosinophils (%) (Auto) 2 % (0-3) Basophils (%) (Auto) 0 % (0-3) Neutrophils # (Auto) 8.4 x10^3/uL (1.8-7.7) Lymphocytes # (Auto) 1.3 x10^3/uL (1.0-4.8) Monocytes # (Auto) 0.8 x10^3/uL (0.0-1.1) Eosinophils # (Auto) 0.3 x10^3/uL (0.0-0.7) Basophils # (Auto) 0.0 x10^3/uL (0.0-0.2) Prothrombin Time 14.1 SEC (11.7-14.0) Prothromb Time International Ratio 1.1 (0.8-1.1) Activated Partial Thromboplast Time 41 SEC (24-38) Sodium Level 136 mmol/L (136-145) Potassium Level 3.0 mmol/L (3.5-5.1) Chloride Level 105 mmol/L (98-107) Carbon Dioxide Level 24 mmol/L (21-32) Anion Gap 7 (6-14) Blood Urea Nitrogen 10 mg/dL (7-20) Creatinine 0.7 mg/dL (0.6-1.0) Estimated GFR (Cockcroft-Gault) 81.4 Glucose Level 98 mg/dL (70-99) Lactic Acid Level 0.7 mmol/L (0.4-2.0) Calcium Level 6.4 mg/dL (8.5-10.1) UK-Iia-S-Type Natriuretic Peptide 3488 pg/mL (0-449) Lipase 165 U/L (73-393) Procalcitonin 0.24 ng/mL (0.00-0.10) Assessment/Plan Assessment/Plan 1. Acute on chronic diastolic heart failure: Better compensated after diuresis. Check 2D echo to assess LV systolic function. 2. Paroxysmal atrial fibrillation: Maintaining sinus rhythm. Amiodarone and metoprolol have been held secondary to bradycardia on admission. She is a poor candidate for long-term anticoagulation. Consider outpatient referral for left atrial appendage closure. 3. Interstitial lung disease based on chest x-ray findings. Agree with holding amiodarone. Consider pulmonary team consultation. 4. Proximal humeral fracture post mechanical fall: s/p surgical fixation. Continue postop care per orthopedics team. 5. Hyperlipidemia: Continue statin therapy 6. Acute pancreatitis: Continue supportive care per IM Thank you for your consultation JOSIAH SULTANA MD Jul 26, 2021 10:56
[2021-07-26 11:16] VITALS: BP 114/55
--- NOTE | 2021-07-26 12:10 | PDOC ---
Infectious Disease Note Subjective Subjective Complaining of right shoulder pain otherwise feeling good Vital Sign Vital Signs Vital Signs Date Time Temp Pulse Resp B/P (MAP) Pulse Ox O2 Delivery O2 Flow Rate FiO2 07/26/21 11:16 65 114/55 (74) 100 Nasal Cannula 6.0 07/26/21 07:00 98.3 18 98.3 Physical Exam PHYSICAL EXAM GENERAL: Alert, oriented female, not in distress. VITAL SIGNS: Stable, afebrile. HEENT: Both pupils are round and reacting. No conjunctival lesion, no lesion in the mouth. NECK: Supple, no JVP, no lymphadenopathy. LUNGS: Clear. HEART: S1, S2, regular. ABDOMEN: Soft, nontender, no organomegaly. EXTREMITIES: No edema, cyanosis. SKIN: Unremarkable. Right shoulder post surgical dressing was not open. NEUROLOGIC: The patient is alert, awake, and appropriate. No focal neurologic deficit. Labs Lab Laboratory Tests Test 07/25/21 20:45 07/26/21 03:10 Troponin I High Sensitivity 23 ng/L (4-50) 19 ng/L (4-50) White Blood Count 10.9 x10^3/uL (4.0-11.0) Red Blood Count 3.01 x10^6/uL (3.50-5.40) Hemoglobin 8.1 g/dL (12.0-15.5) Hematocrit 25.0 % (36.0-47.0) Mean Corpuscular Volume 83 fL (79-100) Mean Corpuscular Hemoglobin 27 pg (25-35) Mean Corpuscular Hemoglobin Concent 33 g/dL (31-37) Red Cell Distribution Width 20.5 % (11.5-14.5) Platelet Count 302 x10^3/uL (140-400) Neutrophils (%) (Auto) 77 % (31-73) Lymphocytes (%) (Auto) 12 % (24-48) Monocytes (%) (Auto) 8 % (0-9) Eosinophils (%) (Auto) 2 % (0-3) Basophils (%) (Auto) 0 % (0-3) Neutrophils # (Auto) 8.4 x10^3/uL (1.8-7.7) Lymphocytes # (Auto) 1.3 x10^3/uL (1.0-4.8) Monocytes # (Auto) 0.8 x10^3/uL (0.0-1.1) Eosinophils # (Auto) 0.3 x10^3/uL (0.0-0.7) Basophils # (Auto) 0.0 x10^3/uL (0.0-0.2) Prothrombin Time 14.1 SEC (11.7-14.0) Prothromb Time International Ratio 1.1 (0.8-1.1) Activated Partial Thromboplast Time 41 SEC (24-38) Sodium Level 136 mmol/L (136-145) Potassium Level 3.0 mmol/L (3.5-5.1) Chloride Level 105 mmol/L (98-107) Carbon Dioxide Level 24 mmol/L (21-32) Anion Gap 7 (6-14) Blood Urea Nitrogen 10 mg/dL (7-20) Creatinine 0.7 mg/dL (0.6-1.0) Estimated GFR (Cockcroft-Gault) 81.4 Glucose Level 98 mg/dL (70-99) Lactic Acid Level 0.7 mmol/L (0.4-2.0) Calcium Level 6.4 mg/dL (8.5-10.1) AL-Rgs-M-Type Natriuretic Peptide 3488 pg/mL (0-449) Lipase 165 U/L (73-393) Procalcitonin 0.24 ng/mL (0.00-0.10) Micro Microbiology 07/22/21 Blood Culture - Preliminary, Resulted NO GROWTH AFTER 1 DAY Objective Assessment IMPRESSION: 1. Status post fall with right proximal humerus fracture, status post open reduction and internal fixation. 2. Hypotension, likely from the dehydration. 3. Acute kidney injury. 4. Elevated lipase of unclear significance, it improved in a day significantly. 5. Pulmonary infiltrate, which is a combination of CHF and/or atelectasis from pleural effusion. Plan [facility] BENITO BANERJEE MD Jul 26, 2021 12:10
[2021-07-26 12:31] LABS: CALCIUM 6.8 mg/dL (8.5-10.1); CREATININE 0.8 mg/dL (0.6-1.0); GFR 69.7; POTASSIUM 3.9 mmol/L (3.5-5.1)
--- NOTE | 2021-07-26 12:48 | RAD ---
AP portable chest radiograph 07/26/2021 Clinical History: Hypoxia. An AP erect portable digital radiograph of the chest was obtained. Comparison study is dated 07/25/2021. A side plate and multiple bone screws overlies the right humerus, unchanged. The cardiac silhouette i s mildly enlarged. The thoracic aorta is tortuous. Bilateral perihilar infiltrates are seen Which is not significantly changed. There is a probable small left pleural effusion, unchanged. No pn eumothorax is seen. The osseous structures are unchanged. Impression: Bilateral perihilar infiltrates, unchanged Electronically signed by: Zion Bhatia MD (07/26/2021 12:46 PM) [id number]
--- NOTE | 2021-07-26 14:40 | PN ---
DATE: 07/26/2021 SUBJECTIVE: The patient is resting, slightly propped up in bed, definitely better than yesterday. She is not tachypneic. She is maintaining her oxygen saturation at 100% on 6 liters of oxygen, has had no more chest pain. We did 3 sets of cardiac enzymes that ruled out myocardial infarction. I also checked her lactic acid and serum lipase and both were normal. Her BMP is high at 3488. Her white cell count has risen slightly to 10.9; however, hemoglobin, hematocrit and platelets are all within normal range. Her chest x-ray showed that the patient has progressive multifocal airspace opacities, demonstrated small pleural effusion on the left and likely a component to left more than right, basilar volume loss, unchanged soft tissue densities, thickening at the left lung apex. No pneumothorax and prominent size of the cardiomediastinal silhouette, proximal humerus plate and screw fixation construct on the right, osteopenia and chronic rib deformities on the left side and the impression the patient has worsened appearance of the chest from 07/19/2021, CT with progressive multifocal airspace opacities, small pleural effusions seen on the left. In the setting of cardiomediastinal silhouette enlargement, alveolar edema is possible; however, multifocal pneumonia should be considered. The patient was treated with IV Lasix at 20 mg once this morning. I did order venous Doppler ultrasound of both lower extremities as yesterday she developed sudden acute on chronic hypoxic respiratory failure but that she required almost 12 liters of oxygen and one of the differential was pulmonary embolism; however, we were unable to get access to go ahead with CT angio of the chest. She is anemic and she has SCDs, but I was reluctant to start her on any anticoagulation for now unless they have firm evidence that she has DVT at least and she might eventually require IVC filter. PHYSICAL EXAMINATION: GENERAL: When I examined her this morning, she was pale, but not jaundiced or cyanosed, no lymphadenopathy, no thyromegaly, no jugular venous distention. In fact, she has generalized anasarca as her serum albumin is very low at 1.5 g/dL. VITAL SIGNS: Her heart rate this morning was 65, blood pressure was 110/56, temperature was 98.5, respiratory rate was 18 and oxygen saturation was 100% on 4 liters of oxygen. HEAD, EYES, EARS, NOSE, AND THROAT: Normocephalic and atraumatic. NECK: Supple. HEART: Showed normal first and second heart sounds, no gallop or murmur. CHEST: Shows central trachea, equal bilateral chest expansion, air entry, vesicular breath sounds. No crepitation or rhonchi anteriorly. ABDOMEN: Distended, soft, and nontender. NEUROLOGIC: She is awake and alert, responding appropriately. All cranial nerves intact. Her right upper extremity is in a shoulder immobilizer; however, she is able to move her left upper extremity and both lower extremities. She has SCDs in place. She has an indwelling Key catheter. Her intake over the last 24 hours was 300, output was 750. LABORATORY DATA: As of this morning, her white cell count was 10.9, hemoglobin 8.1, hematocrit 25, MCV 83 and platelet count 302,000. Her chemistry this morning showed a serum sodium 136, potassium 3, chloride 105, bicarbonate 24, anion gap of 7, BUN 10, and creatinine 0.7. Estimated GFR was 81 mL per minute. Her glucose was 98 and calcium was 6.4. Her prothrombin time and APTT are all within normal range. Her urinalysis essentially unremarkable. Her blood cultures are so far negative and urine culture has grown 50,000 colony forming units per mL of gram-negative rods identified as Proteus mirabilis, resistant to ciprofloxacin and levofloxacin. ASSESSMENT: 1. Acute hypoxic respiratory failure. Differential diagnoses include: A. Acute pulmonary edema. B. Multifocal consolidative pneumonia. C. Pulmonary embolism. 2. Fall with resultant right proximal humerus fracture, status post open reduction internal fixation. 3. Symptomatic sinus bradycardia for which we held her metoprolol and amiodarone. 4. Osteoporosis. 5. Osteopenia and generalized osteoarthritis. 6. Acute pancreatitis, serum lipase has risen to more than 1000 and has normalized. Today's lipase is only 170. 7. Urinary retention requiring indwelling Key catheter. 8. Acute kidney injury with a creatinine that has risen up to 2.4. Today's labs is 0.7 mg/dL. 9. The patient has multiple other medical problems including: A. Chylothorax and empyema, status post video-assisted thoracoscopic surgery. B. Atrial fibrillation, rate controlled, not anticoagulated. C. Hypothyroidism. D. Hyperparathyroidism. E. Hypertension; however, the patient is borderline hypotensive. F. Hyperlipidemia. 10. Hypocalcemia actually improving. She is now on 1000 mg of calcium carbonate and 5000 units of vitamin D. 11. Hypokalemia. She has received a total of 120 mEq of potassium chloride this morning and the BMP scheduled to be done at 10:00 a.m. to make sure that her potassium is replenished. PLAN: To continue with vitamin D and calcium supplement. Continue with pain medication in the form of fentanyl citrate. Continue with levothyroxine for her hypothyroidism, trazodone for insomnia, and atorvastatin for hyperlipidemia. She has also oxycodone 1-2 tablets every 4 hours for pain. She did receive a dose of Lasix this morning at 20 mg and the patient seems to be slightly better. I would consult the senior tax manager as they feel that the patient probably has diastolic congestive heart failure. I did order CT angio of the chest, the result of which is still pending at the time of this dictation and venous Doppler ultrasound was done, but report is still pending. SANTOSH/STEFANY DR: Meeta TID: [id number]
[2021-07-26 15:00] VITALS: BP 102/50
--- NOTE | 2021-07-26 17:52 | RAD ---
Exam: Chest one view INDICATION: PICC placement TECHNIQUE: Frontal view of the chest Comparisons: 07/26/2021 FINDINGS: Left-sided PICC with tip at the SVC. The cardiomediastinal silhouette and pulmonary vessels are within normal limits. Extensive patchy bilateral airspace disease similar to prior study. No pleural effusion IMPRESSION: Lines and tubes described above. Electronically signed by: Christel Tipton MD (07/26/2021 5:49 PM) MINDY
[2021-07-26 19:53] VITALS: BP 107/52
[2021-07-26] MEDS: ATORVASTATIN CALCIUM 20 MG TABLET PO SCH (20:42)
[2021-07-26] MEDS: traZODone 50 MG TABLET. PO SCH (20:42)
[2021-07-26 22:49] VITALS: BP 116/57
[2021-07-27] VITALS (11 sets, daily range): BP systolic 96–163; BP diastolic 51–67
[2021-07-27] MEDS: oxyCODONE/APAP 5/325 1 TAB TABLET PO PRN ×2 (05:43→16:30)
[2021-07-27] MEDS: LEVOTHYROXINE 125 MCG TABLET PO SCH (05:43)
[2021-07-27 06:41] LABS: BASO # 0.1 x10^3/uL (0.0-0.2); BASO % 1 % (0-3); EOS # 0.5 x10^3/uL (0.0-0.7); EOS % 5 % (0-3); HEMATOCRIT 24.5 % (36.0-47.0); HEMOGLOBIN 7.8 g/dL (12.0-15.5); LYMPH # 1.4 x10^3/uL (1.0-4.8); LYMPH % 13 % (24-48); MEAN CORPUSCULAR HEMOGLOBIN 27 pg (25-35); MEAN CORPUSCULAR HGB CONC 32 g/dL (31-37); MEAN CORPUSCULAR VOLUME 84 fL (79-100); MONO # 0.8 x10^3/uL (0.0-1.1); MONO % 7 % (0-9); NEUT # 8.4 x10^3/uL (1.8-7.7); NEUT % 75 % (31-73); PLATELET COUNT 252 x10^3/uL (140-400); RED BLOOD COUNT 2.93 x10^6/uL (3.50-5.40); RED CELL DISTRIBUTION WIDTH 20.5 % (11.5-14.5); WHITE BLOOD COUNT 11.2 x10^3/uL (4.0-11.0)
[2021-07-27 06:51] LABS: ALBUMIN 1.4 g/dL (3.4-5.0); ALBUMIN/GLOBULIN RATIO 0.4 (1.0-1.7); CALCIUM 6.3 mg/dL (8.5-10.1); CREATININE 0.7 mg/dL (0.6-1.0); GFR 81.4; POTASSIUM 3.6 mmol/L (3.5-5.1); TOTAL BILIRUBIN 0.4 mg/dL (0.2-1.0); TOTAL PROTEIN 5.3 g/dL (6.4-8.2)
[2021-07-27] MEDS ORDERED: CONTRAST GIVEN. MC PRN (07:00)
[2021-07-27] MEDS ORDERED: IOHEXOL 350 MG/ML 100 ML VIAL. IV ONE (07:00)
[2021-07-27] MEDS: MEGESTROL 400 MG/10 ML ORAL.SUSP. PO SCH (08:46)
[2021-07-27] MEDS: MULTIVITAMIN with MINERAL TABLET. PO SCH (08:47)
[2021-07-27] MEDS: GABAPENTIN 300 MG CAPSULE. PO SCH ×3 (08:47→20:42)
[2021-07-27] MEDS: LACTOBACILLUS RHAMNOSUS GG 1 CAPSULE. PO SCH ×2 (08:47→20:41)
[2021-07-27] MEDS: SENNOSIDES/DOCUSATE 8.6/50MG TABLET. PO SCH (08:47)
[2021-07-27] MEDS: CALCIUM CARBONATE 500 MG TABLET PO SCH ×3 (08:47→17:05)
[2021-07-27] MEDS: CHOLECALCIFEROL (VITAMIN D3) 5,000 UNIT CAPSULE PO SCH (08:47)
[2021-07-27] MEDS: SERTRALINE 50 MG TABLET. PO SCH (08:47)
--- NOTE | 2021-07-27 10:04 | PDOC ---
PROGRESS NOTES Date of Service: DATE: 07/27/21 TIME: 10:04 Subjective Subjective Somnolent, comfortable Objective Objective Vital Signs Date Time Temp Pulse Resp B/P (MAP) Pulse Ox O2 Delivery O2 Flow Rate FiO2 07/27/21 08:30 Nasal Cannula 6.0 07/27/21 07:00 69 18 163/56 (91) 98 07/27/21 03:00 97.4 97.4 Intake and Output 07/27/21 07:00 Intake Total 720 ml Output Total 550 ml Balance 170 ml Intake Oral 720 ml Output Urine Total 550 ml # Bowel Movements 1 Physical Exam Abdomen: Soft Heart: Regular rate Extremities: No clubbing General: Alert, Cooperative, No acute distress HEENT: Atraumatic Lungs: Other (Bilateral fine crepitations) MUSCULOSKELETAL: No deformity, No swelling Neuro: Normal speech Psych/Mental Status: Mood NL Skin: No breakdown Assessment Assessment 1. Acute on chronic diastolic heart failure: Better compensated after diuresis. Check 2D echo to assess LV systolic function. 2. Paroxysmal atrial fibrillation: Maintaining sinus rhythm. Amiodarone and metoprolol have been held secondary to bradycardia on admission. She is a poor candidate for long-term anticoagulation. Consider outpatient referral for left atrial appendage closure. 3. Interstitial lung disease based on chest x-ray findings. Agree with holding amiodarone. Consider pulmonary team consultation. 4. Proximal humeral fracture post mechanical fall: s/p surgical fixation. Continue postop care per orthopedics team. 5. Hyperlipidemia: Continue statin therapy 6. 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 Labs Laboratory Tests Test 07/26/21 12:10 07/27/21 06:20 Sodium Level 137 mmol/L (136-145) 138 mmol/L (136-145) Potassium Level 3.9 mmol/L (3.5-5.1) 3.6 mmol/L (3.5-5.1) Chloride Level 104 mmol/L (98-107) 105 mmol/L (98-107) Carbon Dioxide Level 26 mmol/L (21-32) 27 mmol/L (21-32) Anion Gap 7 (6-14) 6 (6-14) Blood Urea Nitrogen 8 mg/dL (7-20) 8 mg/dL (7-20) Creatinine 0.8 mg/dL (0.6-1.0) 0.7 mg/dL (0.6-1.0) Estimated GFR (Cockcroft-Gault) 69.7 81.4 Glucose Level 94 mg/dL (70-99) 103 mg/dL (70-99) Calcium Level 6.8 mg/dL (8.5-10.1) 6.3 mg/dL (8.5-10.1) White Blood Count 11.2 x10^3/uL (4.0-11.0) Red Blood Count 2.93 x10^6/uL (3.50-5.40) Hemoglobin 7.8 g/dL (12.0-15.5) Hematocrit 24.5 % (36.0-47.0) Mean Corpuscular Volume 84 fL (79-100) Mean Corpuscular Hemoglobin 27 pg (25-35) Mean Corpuscular Hemoglobin Concent 32 g/dL (31-37) Red Cell Distribution Width 20.5 % (11.5-14.5) Platelet Count 252 x10^3/uL (140-400) Neutrophils (%) (Auto) 75 % (31-73) Lymphocytes (%) (Auto) 13 % (24-48) Monocytes (%) (Auto) 7 % (0-9) Eosinophils (%) (Auto) 5 % (0-3) Basophils (%) (Auto) 1 % (0-3) Neutrophils # (Auto) 8.4 x10^3/uL (1.8-7.7) Lymphocytes # (Auto) 1.4 x10^3/uL (1.0-4.8) Monocytes # (Auto) 0.8 x10^3/uL (0.0-1.1) Eosinophils # (Auto) 0.5 x10^3/uL (0.0-0.7) Basophils # (Auto) 0.1 x10^3/uL (0.0-0.2) BUN/Creatinine Ratio 11 (6-20) Total Bilirubin 0.4 mg/dL (0.2-1.0) Aspartate Amino Transf (AST/SGOT) 27 U/L (15-37) Alanine Aminotransferase (ALT/SGPT) 20 U/L (14-59) Alkaline Phosphatase 101 U/L (46-116) Total Protein 5.3 g/dL (6.4-8.2) Albumin 1.4 g/dL (3.4-5.0) Albumin/Globulin Ratio 0.4 (1.0-1.7) Microbiology 07/22/21 Blood Culture - Preliminary, Resulted NO GROWTH AFTER 4 DAYS 07/22/21 Urine Culture - Final, Complete 07/22/21 Antimicrobic Susceptibility - Final, Complete Medications Current Medications Info (CONTRAST GIVEN -- Rx MONITORING) 1 each PRN DAILY PRN MC SEE COMMENTS; Start 07/27/21 at 07:00; Stop 07/29/21 at 06:59 Iohexol (Omnipaque 350 Mg/ml) 90 ml 1X ONCE IV ; Start 07/27/21 at 07:00; Stop 07/27/21 at 07:01; Status DC Vitals/I & O Vital Sign - Last 24 Hours 07/26/21 07/26/21 07/26/21 07/26/21 11:16 15:00 19:53 20:00 Temp 97.9 99.1 97.9 99.1 Pulse 65 71 71 Resp 20 18 B/P (MAP) 114/55 (74) 102/50 (67) 107/52 (70) Pulse Ox 100 98 93 O2 Delivery Nasal Cannula Nasal Cannula Nasal Cannula Nasal Cannula O2 Flow Rate 6.0 6.0 6.0 6.0 07/26/21 07/26/21 07/26/21 07/27/21 22:45 22:49 23:15 03:00 Temp 99.0 97.4 99.0 97.4 Pulse 71 68 Resp 18 20 18 16 B/P (MAP) 116/57 (76) 114/55 (74) Pulse Ox 93 94 94 96 O2 Delivery Nasal Cannula Nasal Cannula Nasal Cannula Nasal Cannula O2 Flow Rate 6.0 6.0 6.0 6.0 07/27/21 07/27/21 07/27/21 07/27/21 05:43 06:13 07:00 08:30 Pulse 69 Resp 18 18 18 B/P (MAP) 163/56 (91) Pulse Ox 94 94 98 O2 Delivery Nasal Cannula Nasal Cannula Nasal Cannula Nasal Cannula O2 Flow Rate 6.0 6.0 6.0 6.0 Intake and Output 07/26/21 07/26/21 07/27/21 15:00 23:00 07:00 Intake Total 240 ml 480 ml 0 ml Output Total 550 ml Balance 240 ml 480 ml -550 ml JOSIAH SULTANA MD Jul 27, 2021 10:04
--- NOTE | 2021-07-27 10:08 | PN ---
DATE: 07/27/2021 SUBJECTIVE: The patient is resting, slightly propped up in bed, in no apparent distress. She is awake, alert. On questioning her, she is not complaining of any pain. Her biggest problem is having swallowing difficulty, especially solids. She continued to require 6 liters of oxygen. She did have a PICC line placed successfully. For some reason, her CT angio was not done. PHYSICAL EXAMINATION: GENERAL: When I examined her, she looked well and was clearly in no apparent respiratory distress. She was pale, not jaundiced, cyanosed. No lymphadenopathy, no thyromegaly, no jugular venous distention. No lower limb edema. She has generalized anasarca. VITAL SIGNS: Her heart rate was 68, blood pressure was 114/55, temperature was 97.4, respiratory rate was 16 and oxygen saturation was 96% on 6 liters of oxygen. HEAD, EYES, EARS, NOSE AND THROAT: Normocephalic, atraumatic. NECK: Supple. HEART: Showed normal first and second heart sounds. No gallop, rub or murmur. CHEST: Clear to auscultation. No crepitation or rhonchi. ABDOMEN: Distended, soft, nontender. NEUROLOGIC: She was awake, alert, responding appropriately. All her cranial nerves were intact. EXTREMITIES: Her right upper extremity is in a shoulder immobilizer. She has a PICC line in the left arm. Her intake over the last 24 hours was 1060, output was 1200. LABORATORY DATA: Her white cell count was 11,200; hemoglobin 7.8; hematocrit 24.5; MCV 84 and platelet count 252,000 with normal manual differential. Serum sodium was 138, potassium 3.6, chloride 105, bicarbonate 27, anion gap of 6, BUN 8, creatinine 0.7. Estimated GFR was 81 mL per minute. Her glucose was 103, calcium was 6.3. Total bilirubin, AST, ALT, alkaline phosphatase were normal. Total protein was 5.3. Albumin was 1.4. ASSESSMENT: 1. Acute hypoxic respiratory failure. Differential diagnoses include: A. Acute pulmonary edema. B. Multifocal consolidative pneumonia. C. Pulmonary embolism. 2. Fall with resultant right proximal humerus fracture, status post open reduction internal fixation. 3. Symptomatic sinus bradycardia, for which we held her metoprolol and amiodarone. 4. Osteoporosis. 5. Generalized osteoarthritis. 6. Acute pancreatitis. Serum lipase has risen to more 1000 and has normalized. As of yesterday, her serum lipase was 173. 7. Urinary retention, requiring indwelling Key catheter. 8. Acute kidney injury with a creatinine that has risen up to 2.4. Today's serum creatinine is down to 0.7 mg/dL. 9. The patient has multiple other medical problems including: A. Chylothorax and empyema, status post video-assisted thoracoscopic surgery. B. Atrial fibrillation, rate controlled, not anticoagulated. C. Hypothyroidism. D. Hyperparathyroidism. E. Hypertension; however, the patient is borderline hypertensive. F. Hyperlipidemia. 10. Hypocalcemia that actually has improved. She is now on 1000 mg of calcium carbonate and 5000 units of vitamin D. 11. Hypokalemia that has improved. Her potassium today was 3.6. PLAN: My plan is obviously to continue with all her medications for now. I will arrange for her to have a CT angio of the chest as her oxygen requirement has definitely changed. When she came, she was on 2 liters and now, she is on 6 liters. I will go ahead and arrange for the CT angio of the chest and also consult the Speech and Language pathologist for swallowing evaluation. RENEE DR: Meeta TID: [id number]
--- NOTE | 2021-07-27 10:48 | RAD ---
Examination: CT angiography chest with IV contrast HISTORY: History of chest pain, hypoxic respiratory failure COMPARISON: None available TECHNIQUE: Axial CT angiographic images of chest were performed with IV contrast. Coronal and sagitta l 3-D MIP reformats are performed Exposure: One or more of the following individualized dose reduction techniques were utilized for thi s examination: 1. Automated exposure control 2. Adjustment of the mA and/or kV according to patient size 3. Use of iterative reconstruction technique FINDINGS: The visualized thyroid gland grossly appears unremarkable. Mild cardiomegaly. The caliber of the aort a grossly appears unremarkable Mild fluid distended esophagus. Moderate size hiatal hernia. Mildly enlarged mediastinal lymph nodes. There is no evidence of filling defect identified in the main pulmonary artery. There is filling defe ct identified in the left main pulmonary artery extending into the left lower lobe pulmonary arteries likely pulmonary emboli. Moderate right and small left pleural effusions identified. There are numer ous groundglass airspace opacities identified scattered in the bilateral lungs. The liver, spleen, ad renals grossly appears unremarkable. Partially visualized moderate to moderate fat stranding identifi ed about the pancreas. Moderate degenerative changes thoracic spine. IMPRESSION: 1. Filling defect identified in the left main pulmonary artery extending into the left lower lobe pu lmonary arteries likely pulmonary emboli. 2. Moderate right and small left pleural effusions. 3. Numerous groundglass airspace opacities identified scattered in the bilateral lungs likely Covid pneumonia/infiltrates. Follow-up to resolution. 4. Mild enlarged mediastinal lymph nodes likely reactive lymphadenopathy. 5. Partially visualized moderate to moderate fat stranding identified about the pancreas could be du e to pancreatitis. FOR INTERNAL CODING PURPOSES Critical result: Findings discussed with patient's nurse at 07/27/2021 10:45 AM. RESULT CODE: (C) 1. Electronically signed by: Augie Fong MD (07/27/2021 10:45 AM) [id number]
[2021-07-27] MEDS ORDERED: HEPARIN for IV BOLUS 10,000 UNIT/10 ML VIAL. IV PRN (11:15)
[2021-07-27] MEDS: PANTOPRAZOLE IV PUSH 40 MG VIAL. IVP SCH ×2 (11:21→20:42)
[2021-07-27] MEDS: HEPARIN 25,000UTS/250ML PREMIX 250 ML IV PRN (11:29)
--- NOTE | 2021-07-27 13:05 | NUR ---
Dr. Nicholson notified that patient had ORIF of R shoulder and has developed PE. Dr. Nicholson stated if there is anything his group needs to do please feel free to contact.
[2021-07-27] MEDS: ATORVASTATIN CALCIUM 20 MG TABLET PO SCH (20:41)
[2021-07-27] MEDS: traZODone 50 MG TABLET. PO SCH (20:42)
[2021-07-27] MEDS: HEPARIN for IV BOLUS 10,000 UNIT/10 ML VIAL. IV PRN (20:42)
[2021-07-28] VITALS (15 sets, daily range): BP systolic 98–141; BP diastolic 45–84
[2021-07-28] MEDS: LEVOTHYROXINE 125 MCG TABLET PO SCH (06:33)
[2021-07-28] MEDS: HEPARIN 25,000UTS/250ML PREMIX 250 ML IV PRN (07:03)
[2021-07-28] MEDS: HEPARIN for IV BOLUS 10,000 UNIT/10 ML VIAL. IV PRN ×2 (07:33→14:20)
--- NOTE | 2021-07-28 07:44 | PDOC ---
Infectious Disease Note Subjective Subjective Complaining of right shoulder pain otherwise feeling good ROS ROS No nausea vomiting diarrhea did have shortness of breath Vital Sign Vital Signs Vital Signs Date Time Temp Pulse Resp B/P (MAP) Pulse Ox O2 Delivery O2 Flow Rate FiO2 07/28/21 06:00 62 16 102/47 (65) 95 Nasal Cannula 6.0 07/28/21 04:00 99.4 99.4 Physical Exam PHYSICAL EXAM GENERAL: Alert, oriented female, not in distress. VITAL SIGNS: Stable, afebrile. HEENT: Both pupils are round and reacting. No conjunctival lesion, no lesion in the mouth. NECK: Supple, no JVP, no lymphadenopathy. LUNGS: Clear. HEART: S1, S2, regular. ABDOMEN: Soft, nontender, no organomegaly. EXTREMITIES: No edema, cyanosis. SKIN: Unremarkable. Right shoulder post surgical dressing was not open. NEUROLOGIC: The patient is alert, awake, and appropriate. No focal neurologic deficit. Labs Lab Laboratory Tests Test 07/27/21 17:30 07/28/21 03:40 Heparin Anti-Xa Act, Unfractionated < 0.10 IU/mL (0.30-0.70) 0.14 IU/mL (0.30-0.70) Micro URINE CULTURE Final Final 50,000 CFU/ML GRAM NEGATIVE RODS on 07/24/21 at 0824 FINAL ID= [[email or web address] [email or web address]] PROTEUS MIRABILIS ANTIMICROBIAL SUSCEPTIBILITY Final Comment NEG DOUGLAS 56 PROTEUS MIRABILIS ANTIBIOTIC RESULT INTERPRETATION AMPICILLIN/SULBACTAM <=4/2 S AMIKACIN <=16 S AMPICILLIN <=8 S AMOXICILLIN/K CLAVULANATE <=8/4 S AZTREONAM <=4 S CEFTRIAXONE <=1 S CEFTAZIDIME <=1 S CEFOTAXIME <=2 S CEFOXITIN <=8 S CEFAZOLIN 4 S CIPROFLOXACIN >2 R CEFEPIME <=2 S CEFUROXIME <=4 S CEFTAZIDIME/AVIBACTAM <=4 S ERTAPENEM <=0.5 S NITROFURANTOIN 64 R* GENTAMICIN 4 S LEVOFLOXACIN >4 R MEROPENEM <=1 S PIPERACILLIN/TAZOBACTAM <=8 S TRIMETHOPRIM/SULFAMETHOXAZOLE 2/38 S TETRACYCLINE >8 R TOBRAMYCIN 8 I Unless otherwise specified, Testing Performed by: [address] [place] [address] For Inquires, the Physician may contact the Microbiology Objective Assessment IMPRESSION: 1. Status post fall with right proximal humerus fracture, status post open reduction and internal fixation. 2. Hypotension, likely from the dehydration. 3. Acute kidney injury. 4. Elevated lipase of unclear significance, it improved in a day significantly. 5. Pulmonary infiltrate, which is a combination of CHF and/or atelectasis from pleural effusion. 6 PE Plan Plan of Care Supportive care Anticoagulation Levaquin for 7 days total BENITO BANERJEE MD Jul 28, 2021 07:44
[2021-07-28 08:37] LABS: HEMATOCRIT 23.9 % (36.0-47.0); HEMOGLOBIN 7.6 g/dL (12.0-15.5); RED BLOOD COUNT 2.87 x10^6/uL (3.50-5.40); RED CELL DISTRIBUTION WIDTH 20.1 % (11.5-14.5); WHITE BLOOD COUNT 11.1 x10^3/uL (4.0-11.0)
[2021-07-28] MEDS: GABAPENTIN 300 MG CAPSULE. PO SCH ×3 (09:46→20:43)
[2021-07-28] MEDS: PANTOPRAZOLE IV PUSH 40 MG VIAL. IVP SCH ×2 (09:46→20:44)
[2021-07-28] MEDS: MULTIVITAMIN with MINERAL TABLET. PO SCH (09:46)
[2021-07-28] MEDS: CHOLECALCIFEROL (VITAMIN D3) 5,000 UNIT CAPSULE PO SCH (09:46)
[2021-07-28] MEDS: CALCIUM CARBONATE 500 MG TABLET PO SCH ×3 (09:46→18:00)
[2021-07-28] MEDS: SERTRALINE 50 MG TABLET. PO SCH (09:46)
[2021-07-28] MEDS: LACTOBACILLUS RHAMNOSUS GG 1 CAPSULE. PO SCH ×2 (09:47→20:43)
[2021-07-28] MEDS: MEGESTROL 400 MG/10 ML ORAL.SUSP. PO SCH (09:49)
[2021-07-28] MEDS: SENNOSIDES/DOCUSATE 8.6/50MG TABLET. PO SCH (09:59)
--- NOTE | 2021-07-28 10:23 | PDOC ---
PULMONARY PROGRESS NOTES DATE: 07/28/21 TIME: : Vitals Vital Signs Date Time Temp Pulse Resp B/P (MAP) Pulse Ox O2 Delivery O2 Flow Rate FiO2 07/28/21 08:00 Nasal Cannula 6.0 07/28/21 06:00 62 16 102/47 (65) 95 07/28/21 04:00 99.4 99.4 Labs Laboratory Tests Test 07/26/21 12:10 07/27/21 06:20 07/27/21 17:30 07/28/21 03:40 Sodium Level 137 mmol/L (136-145) 138 mmol/L (136-145) Potassium Level 3.9 mmol/L (3.5-5.1) 3.6 mmol/L (3.5-5.1) Chloride Level 104 mmol/L (98-107) 105 mmol/L (98-107) Carbon Dioxide Level 26 mmol/L (21-32) 27 mmol/L (21-32) Anion Gap 7 (6-14) 6 (6-14) Blood Urea Nitrogen 8 mg/dL (7-20) 8 mg/dL (7-20) Creatinine 0.8 mg/dL (0.6-1.0) 0.7 mg/dL (0.6-1.0) Estimated GFR (Cockcroft-Gault) 69.7 81.4 Glucose Level 94 mg/dL (70-99) 103 mg/dL (70-99) Calcium Level 6.8 mg/dL (8.5-10.1) 6.3 mg/dL (8.5-10.1) White Blood Count 11.2 x10^3/uL (4.0-11.0) Red Blood Count 2.93 x10^6/uL (3.50-5.40) Hemoglobin 7.8 g/dL (12.0-15.5) Hematocrit 24.5 % (36.0-47.0) Mean Corpuscular Volume 84 fL (79-100) Mean Corpuscular Hemoglobin 27 pg (25-35) Mean Corpuscular Hemoglobin Concent 32 g/dL (31-37) Red Cell Distribution Width 20.5 % (11.5-14.5) Platelet Count 252 x10^3/uL (140-400) Neutrophils (%) (Auto) 75 % (31-73) Lymphocytes (%) (Auto) 13 % (24-48) Monocytes (%) (Auto) 7 % (0-9) Eosinophils (%) (Auto) 5 % (0-3) Basophils (%) (Auto) 1 % (0-3) Neutrophils # (Auto) 8.4 x10^3/uL (1.8-7.7) Lymphocytes # (Auto) 1.4 x10^3/uL (1.0-4.8) Monocytes # (Auto) 0.8 x10^3/uL (0.0-1.1) Eosinophils # (Auto) 0.5 x10^3/uL (0.0-0.7) Basophils # (Auto) 0.1 x10^3/uL (0.0-0.2) BUN/Creatinine Ratio 11 (6-20) Total Bilirubin 0.4 mg/dL (0.2-1.0) Aspartate Amino Transf (AST/SGOT) 27 U/L (15-37) Alanine Aminotransferase (ALT/SGPT) 20 U/L (14-59) Alkaline Phosphatase 101 U/L (46-116) Total Protein 5.3 g/dL (6.4-8.2) Albumin 1.4 g/dL (3.4-5.0) Albumin/Globulin Ratio 0.4 (1.0-1.7) Heparin Anti-Xa Act, Unfractionated < 0.10 IU/mL (0.30-0.70) 0.14 IU/mL (0.30-0.70) Test 07/28/21 07:52 White Blood Count 11.1 x10^3/uL (4.0-11.0) Red Blood Count 2.87 x10^6/uL (3.50-5.40) Hemoglobin 7.6 g/dL (12.0-15.5) Hematocrit 23.9 % (36.0-47.0) Mean Corpuscular Volume 83 fL (79-100) Mean Corpuscular Hemoglobin 27 pg (25-35) Mean Corpuscular Hemoglobin Concent 32 g/dL (31-37) Red Cell Distribution Width 20.1 % (11.5-14.5) Platelet Count 245 x10^3/uL (140-400) Laboratory Tests Test 07/27/21 17:30 07/28/21 03:40 07/28/21 07:52 Heparin Anti-Xa Act, Unfractionated < 0.10 IU/mL (0.30-0.70) 0.14 IU/mL (0.30-0.70) White Blood Count 11.1 x10^3/uL (4.0-11.0) Red Blood Count 2.87 x10^6/uL (3.50-5.40) Hemoglobin 7.6 g/dL (12.0-15.5) Hematocrit 23.9 % (36.0-47.0) Mean Corpuscular Volume 83 fL (79-100) Mean Corpuscular Hemoglobin 27 pg (25-35) Mean Corpuscular Hemoglobin Concent 32 g/dL (31-37) Red Cell Distribution Width 20.1 % (11.5-14.5) Platelet Count 245 x10^3/uL (140-400) Medications Active Scripts Medications Dose Route/Sig Max Daily Dose Days Date Category Trazodone Hcl 50 Mg Tablet 1 Tab PO QHS 07/19/21 Reported Zoloft (Sertraline Hcl) 50 Mg Tablet 1 Tab PO DAILY 07/19/21 Reported Polyethylene Glycol 3350 2,500 Gm Powder 17 Gm PO DAILY 07/19/21 Reported Metoprolol Tartrate 25 Mg Tablet 1 Tab PO BID 07/19/21 Reported Megestrol Acetate 400 Mg/10 Ml Oral.susp 400 Mg PO DAILY 07/19/21 Reported Levothyroxine Sodium 125 Mcg Tablet 1 Tab PO DAILY 07/19/21 Reported Lactulose 20 Gm/30 Ml Solution 10 Gm PO PRN DAILY 07/19/21 Reported Gabapentin 300 Mg Capsule 300 Mg PO TID 07/19/21 Reported Atorvastatin Calcium 20 Mg Tablet 1 Tab PO HS 07/19/21 Reported Amiodarone Hcl 200 Mg Tablet 1 Tab PO BID 07/19/21 Reported Impression . Full note dictated Acute PE Multifactorial respiratory failure Discussed with Dr. Pratt Continue current support AMIE NARAYAN MD Jul 28, 2021 10:23
--- NOTE | 2021-07-28 10:41 | PDOC ---
LUCIE WARREN OPERATIONS CLERK 07/28/21 1041: CARDIO Progress Notes Date and Time Date of Service 07/28/21 Time of Evaluation 1510 Subjective Subjective: No Chest Pain, No shortness of breath, No Palpitations Vitals Vitals Vital Signs Date Time Temp Pulse Resp B/P (MAP) Pulse Ox O2 Delivery O2 Flow Rate FiO2 07/28/21 08:00 Nasal Cannula 6.0 07/28/21 06:00 62 16 102/47 (65) 95 07/28/21 04:00 99.4 99.4 Weight Weight [ ] Input and Output Intake and Output Intake and Output 07/28/21 07:00 Intake Total 1001 ml Output Total 750 ml Balance 251 ml Intake Oral 850 ml IV Total 151 ml Output Urine Total 750 ml # Bowel Movements 2 Laboratory Labs Laboratory Tests Test 07/27/21 17:30 07/28/21 03:40 07/28/21 07:52 Heparin Anti-Xa Act, Unfractionated < 0.10 IU/mL (0.30-0.70) 0.14 IU/mL (0.30-0.70) White Blood Count 11.1 x10^3/uL (4.0-11.0) Red Blood Count 2.87 x10^6/uL (3.50-5.40) Hemoglobin 7.6 g/dL (12.0-15.5) Hematocrit 23.9 % (36.0-47.0) Mean Corpuscular Volume 83 fL (79-100) Mean Corpuscular Hemoglobin 27 pg (25-35) Mean Corpuscular Hemoglobin Concent 32 g/dL (31-37) Red Cell Distribution Width 20.1 % (11.5-14.5) Platelet Count 245 x10^3/uL (140-400) Microbiology Micro Microbiology 07/22/21 Blood Culture - Final, Complete NO GROWTH AFTER 5 DAYS 07/22/21 Urine Culture - Final, Complete 07/22/21 Antimicrobic Susceptibility - Final, Complete Review of Systems Constitutional: yes: other (CONFUSED) Ears/Nose/Throat: Yes: no symptom reported Eyes: Yes: no symptom reported Pulmonary: Yes no symptom reported Cardiovascular: Yes no symptom reported Gastrointestional: Yes: no symptom reported Genitourinary: Yes: no symptom reported Musculoskeletal: Yes: no symptom reported Skin: Yes no symptom reported Psychiatric/Neurological: Yes: no symptom reported Endocrine: Yes: no symptom reported Hematologic/Lymphatic: Yes: no symptom reported Physical Exam HEENT: Neck Supple W Full Motion Chest: Symmetric LUNGS: Other (diminished ) Heart: RRR Abdomen: Soft N/T Extremities: Other (1+ bilateral LE edema ) Neurology: alert, follow commands Assessment Assessment 1. Acute on chronic diastolic heart failure: Better compensated after diuresis. Echo with preserved LV systolic function 2. PAFIB; presently SR. Amiodarone and metoprolol have been held secondary to bradycardia on admission. 3. Acute respiratory failure; multifactorial. as per pulmonary 4. Proximal humeral fracture post mechanical fall: s/p surgical fixation. Continue postop care per orthopedics team. 5. Hyperlipidemia: Continue statin therapy 6. Acute pancreatitis: Continue supportive care per IM 7. Acute PE; on heparin gtt 8. Anemia; hgb trending downward. No obvious bleeding 9. Hypokalemia Recommendations Diuresis as blood pressure allows No BB due to hypotension, bradycardia Monitor H and H; transfuse as warranted Consider for IVC filter and outpatient referral for left atrial appendage cl osure. Ongoing support Justicifation of Admission Dx: Justifications for Admission: Justification of Admission Dx: Yes Comments: Acute respiratory failure Acute on chronic diastolic CHF JOSIAH SULTANA MD 07/28/212118: CARDIO Progress Notes Assessment Assessment Patient seen and examined. Agree with ALIGNER BARREL AND RECEIVER's assessment and plan. Ac on chr diast HF better compensated 2D echo showed normal LVF PAF maintaining SR LUCIE WARREN APRN Jul 28, 2021 10:41 JOSIAH SULTANA MD Jul 28, 2021 21:19
[2021-07-28] MEDS: oxyCODONE/APAP 5/325 1 TAB TABLET PO PRN ×3 (10:42→20:46)
--- NOTE | 2021-07-28 10:44 | CONS ---
DATE OF CONSULTATION: 07/28/2021 ATTENDING PHYSICIAN: Aman Pratt MD. CONSULTING PHYSICIAN: Ken Soliz MD. REASON FOR CONSULTATION: The patient is seen in pulmonary consultation at the request of Dr. Pratt for acute pulmonary embolism, respiratory failure. HISTORY OF PRESENT ILLNESS: The patient is a 76-year-old with a history of paroxysmal AFib, transferred from [facility] in [place]. She was recuperating after apparently the patient had a lung mass removed from, which turned out to be benign. She was recuperating at [facility]. She lost her balance, became dizzy. She was brought to the Emergency Room. She was found to have a fracture of right humerus. She underwent open treatment and proximal humeral surgical neck fracture with internal fixation. Yesterday, she became more short of air. She underwent a CT angiogram, which revealed pulmonary emboli. She was placed on IV heparin by Dr. Mcnulty. I was asked to see her in followup. The patient is currently awake, alert, following command. She is currently on 5 liters of oxygen. She has never smoked. Does not wear oxygen at home. PAST MEDICAL HISTORY: Remarkable for: 1. Previous history of lobectomy lung mass removed turned out to be benign. She has had previous left sided pleural effusion. 2. Atrial fibrillation. 3. Interstitial cystitis. 4. Hypothyroidism. 5. Parathyroidectomy. 6. Hypertension. 7. Hyperlipidemia. PAST SURGICAL HISTORY: She had a lung mass removed, significant prior history of thyroidectomy, parathyroidectomy. FAMILY HISTORY: Emphysema cardiac disorders. SOCIAL HISTORY: She is , lives with her son in [place]. She used to drink on a daily basis. REVIEW OF SYSTEMS: As indicated above, otherwise a 10-point system was reviewed and negative. CURRENT MEDICATIONS: List was reviewed. PHYSICAL EXAMINATION: VITAL SIGNS: Stable. O2 saturation greater than 92%. NECK: Jugular venous distention could not be assessed secondary to body habitus. CHEST: Full expansion. LUNGS: Crackles throughout both lung martins. CARDIOVASCULAR: Regular rate and rhythm with S1, S2, no S3. ABDOMEN: Soft, nontender. EXTREMITIES: No clubbing, cyanosis or edema. Also evidence of previous surgery in the right upper extremity. LABORATORY DATA: Reviewed. White count was slightly elevated hemoglobin and hematocrit 7.6 and 23. Electrolytes were noted. BUN and creatinine were normal. INR was noted. Serology for influenza was negative. CT angiogram was reviewed. There is a filling defect in the left main pulmonary artery extending into the left lower lobe artery. There is moderate right and small left sided effusion, ground glass opacities throughout both lung martins, mildly enlarged mediastinal lymph nodes. IMPRESSION: 1. Acute hypoxemic respiratory failure, multifactorial. 2. Acute pulmonary embolism. 3. Acute on chronic diastolic heart failure. 4. Paroxysmal atrial fibrillation. 5. Abnormal CT chest. 6. Hyperlipidemia. 7. Acute pancreatitis. 8. Status post open treatment proximal humerus surgical neck fracture with internal fixation. 9. Urinary tract infection, Proteus mirabilis. 10. Acute kidney injury, improved. 11. Bilateral pleural effusions. 12. Acute pancreatitis. PLAN: 1. We will continue oxygen supplementation. 2. Discussed with juanjose Triana to transfer out of the ICU. 3. IV heparin. 4. Follow Cardiology input. 5. Diurese. 6. Continue current support. 7. Follow ortho input. The above was discussed with the RN, Dr. Pratt. I do appreciate the privilege in sharing in the patient's care. Total cumulative critical care time of 50 minutes. ROSALIND/LIT MORALES: Nilson TID: [id number]
--- NOTE | 2021-07-28 10:54 | NUR ---
SS following up with discharge planning. SS reviewed pt chart and discussed with pt RN. Pt transferred to ICU over the weekend. Pt is currently requiring oxygen at six liters nasal canula. PE and on Heparin Drip. H&H dropping. Possible need for IVC filter. Pt being retested for COVID19. Not stable. Pt is LTC resident from [facility], [place], ; fax [phone]. SS will continue to follow for discharge planning.
[2021-07-28 11:15] LABS: CALCIUM 6.3 mg/dL (8.5-10.1); CREATININE 0.6 mg/dL (0.6-1.0); GFR 97.2; POTASSIUM 3.4 mmol/L (3.5-5.1)
[2021-07-28 11:35] LABS: FECAL OB PT NEGATIVE (NEG)
--- NOTE | 2021-07-28 11:41 | PN ---
DATE: 07/28/2021 SUBJECTIVE: The patient is resting, slightly propped up in bed, in no apparent distress. She continued to complain of back pain, pain in her right shoulder. She also continued to have high oxygen requirement about 6 liters. She has had a CT angio of the chest done yesterday, which basically showed that there is a filling defect identified in the left main pulmonary artery extending into the left lower lobe pulmonary arteries, likely pulmonary emboli, moderate right and small left side pleural effusion, numerous ground glass airspace opacities identified scattered in the bilateral lungs, likely COVID pneumonia infiltrate, followup to resolution, mild enlarged mediastinal lymph nodes, likely reactive lymphadenopathy, partially visualized moderate fat stranding identified about the pancreas could be due to pancreatitis. PHYSICAL EXAMINATION: GENERAL: When I examined her this morning, she was pale, not jaundiced, cyanosed, no lymphadenopathy, no thyromegaly, no jugular venous distention. No lower limb edema. VITAL SIGNS: Her heart rate was 62, blood pressure was 102/47, her temperature was 99.4, respiratory rate was 16 and oxygen saturation was 95% on 6 liters of oxygen. HEAD, EYES, EARS, NOSE, AND THROAT: Normocephalic, atraumatic. NECK: Supple. HEART: Normal first and second heart sounds. No gallop, rub or murmur. CHEST: Shows central trachea, equal bilateral chest expansion, air entry, vesicular breath sounds with bilateral basal crepitation. I could not appreciate any rhonchi. ABDOMEN: Distended, soft, nontender. NEUROLOGIC: She was awake, alert, responding appropriately. All cranial nerves intact. She moves her left upper and bilateral lower extremity without difficulty. She has an indwelling Key catheter. Her intake was 720, output was 550. LABORATORY DATA: This morning showed a white cell count of 11,100, hemoglobin 7.6, hematocrit 23.9, MCV 83 and platelet count 245,000. Her serum sodium was 138, potassium was 3.6, chloride 105, bicarbonate 27, anion gap of 8, BUN 8, creatinine 0.7. Estimated GFR was 81 mL per minute. Her glucose was 103, calcium was 6.3. Total bilirubin, AST, ALT, alkaline phosphatase were normal. Total protein 5.3, albumin was 1.4. ASSESSMENT: 1. Acute hypoxic respiratory failure. Differential diagnosis include: A. Acute pulmonary edema. B. Multifocal consolidative pneumonia. C. Pulmonary embolism. Her CT angio of the chest showed that she has a filling defect in her left main pulmonary artery extending to the left lower lobe pulmonary artery. She has also bilateral pleural effusion and bilateral lung infiltrate. 2. Fall with resultant right proximal humerus fracture, status post open reduction and internal fixation. 3. Symptomatic sinus bradycardia, for which we held her metoprolol and amiodarone. 4. Osteoporosis. 5. Generalized osteoarthritis. 6. Acute pancreatitis, serum lipase has risen to more than 1000 that has normalized. As of yesterday, her serum lipase was down to 173. 7. Urinary retention requiring indwelling Key catheter. 8. Acute kidney injury with serum creatinine that has risen up to 2.4. Today's serum creatinine is down to 0.7 mg/dL. 9. The patient has multiple other medical problems including: A. Chylothorax and empyema, status post video-assisted thoracoscopic surgery. B. Atrial fibrillation, rate controlled, not anticoagulated. C. Hypothyroidism. D. Hyperparathyroidism. E. Hypertension; however, the patient is borderline hypertensive. F. Hyperlipidemia. 10. Hypocalcemia that I actually has improved. She is now on 1000 mg of calcium carbonate and 5000 units of vitamin D on a daily basis. 11. Hypokalemia, it has resolved. Her most recent serum potassium is up to 3.6. PLAN: To obviously continue with calcium and vitamin D. Continue with pain management and she is now on a heparin drip, but I am concerned that she is not a good candidate for anticoagulation and she has atrial fibrillation and now pulmonary embolism and I believe that she is better off with IVC filter. CAIL/JN DR: Meeta TID: [id number]
--- NOTE | 2021-07-28 13:38 | CARD ---
MR#: [id number] Date of Study: 07/28/2021 Ordering Physician: JOSIAH SHEIKH, Referring Physician: JOSIAH SHEIKH, Tech: April Hilton [facility] APPROVED REPORT EXAM: Two-dimensional and M-mode echocardiogram with Doppler and color Doppler. Other Information Quality : GoodHR: 69bpm INDICATION Atrial Fibrillation Congestive Heart Failure RISK FACTORS Hypertension Hyperlipidemia 2D DIMENSIONS Left Atrium(2D)3.3 (1.6-4.0cm)IVSd1.0 (0.7-1.1cm) Aortic Root(2D)3.3 (2.0-3.7cm)LVDd5.8 (3.9-5.9cm) LVOT Diameter2.0 (1.8-2.4cm)PWd1.0 (0.7-1.1cm) LVDs3.7 (2.5-4.0cm)FS (%) 37.3 % SV112.3 mlLVEF(%)66.5 (>50%) Aortic Valve AoV Peak Be.180.2cm/sAoV VTI36.2cm AO Peak GR.13.0mmHgLVOT VTI 27.75cm AO Mean GR.6mmHgAI P 1/2 Lvle304is Mitral Valve MV E Ptqsyolu69.1cm/sMV E Peak Gr.4mmHg MV DECEL [id number] A Zdrucfdw82.3cm/s MV E Mean Gr.2mmHgE/A Ratio1.3 TDI Lateral E' P. V9.65cm/sMedial E' P. V8.56cm/s E/Lateral E'8.9E/Medial E'10.1 Tricuspid Valve TR P. Azphyzrr421re/sRAP MDYHEBYK7mbWm TR Peak Gr.90fzMbMFHN64qbWv LEFT VENTRICLE The left ventricle is normal size. There is normal left ventricular wall thickness. The left ventricu lar systolic function is normal. The Ejection Fraction is 55-60%. There is normal LV segmental wall m otion. The left ventricular diastolic function and filling is normal for age. RIGHT VENTRICLE The right ventricle is borderline dilated. There is normal right ventricular wall thickness. The righ t ventricular systolic function is normal. ATRIA The left atrium is mildly dilated. The right atrium size is normal. The interatrial septum is intact with no evidence for an atrial septal defect or patent foramen ovale as noted on 2-D or Doppler imagi ng. AORTIC VALVE The aortic valve is normal in structure and function. Doppler and Color Flow revealed mild aortic reg urgitation. There is no significant aortic valvular stenosis. Calculated aortic valve area is 2.33 cm 2 with maximum pressure gradient of 15 mmHg and mean pressure gradient of 8 mmHg. MITRAL VALVE The mitral valve is normal in structure and function. There is no evidence of mitral valve prolapse. There is no mitral valve stenosis. Doppler and Color-flow revealed trace mitral regurgitation. TRICUSPID VALVE The tricuspid valve is normal in structure and function. Doppler and Color Flow revealed trace tricus pid regurgitation with an estimated PAP of 52 mmHg. There is no tricuspid valve stenosis. PULMONIC VALVE The pulmonary valve is normal in structure and function. Doppler and Color Flow revealed trace pulmon ic valvular regurgitation. GREAT VESSELS The aortic root is normal in size. The IVC is normal in size and collapses >50% with inspiration. PERICARDIAL EFFUSION There is no evidence of significant pericardial effusion. Critical Notification Critical Value: No <Conclusion> The left ventricular systolic function is normal. The Ejection Fraction is 55-60%. There is normal LV segmental wall motion. Mild aortic regurgitation. Trace mitral regurgitation. Trace tricuspid regurgitation with an estimated PAP of 52 mmHg. There is no evidence of significant pericardial effusion. Signed by : Josiah Sheikh, Electronically Approved : 07/28/2021 13:37:57
[2021-07-28] MEDS ORDERED: LIDOCAINE WITH 8.4% SOD BICARB 3 ML DISP.SYRIN. ONE (14:42)
[2021-07-28] MEDS ORDERED: IODIXANOL 320 MG/ML 50ML VIAL. ONE (14:43)
--- NOTE | 2021-07-28 15:00 | NUR ---
wound care patient off unit at this time, wound care will f/u tomorrow.
[2021-07-28] MEDS ORDERED: IODIXANOL 320 MG/ML 50ML VIAL. IV ONE (15:30)
[2021-07-28] MEDS ORDERED: LIDOCAINE WITH 8.4% SOD BICARB 3 ML DISP.SYRIN. IJ ONE (15:30)
[2021-07-28] MEDS ORDERED: FUROSEMIDE 20 MG/2 ML VIAL. IVP ONE (15:45)
[2021-07-28] MEDS ORDERED: POTASSIUM BICARB 20 MEQ EFFERVESCENT TABLET. PO ONE (16:00)
--- NOTE | 2021-07-28 16:18 | RAD ---
EXAMINATION: IVC filter placement (CPT 76187) INDICATION: Pulmonary embolism. The patient is high risk for anticoagulation with the arm fracture. R ecent fall. There is concern for tolerance of anticoagulation and therefore IVC filter has been reque sted. Flouroscopy-Radiation exposure: Kerma Air Product (in mGycm2): 9 Contrast: 20 mL Visipaque IV. SEDATION: No sedation. Current history and physical and other medical records are reviewed prior to the procedure. CONSENT: Informed consent was obtained. The risks, benefits, potential complications and alternatives were reviewed and all questions answered. Estimated blood loss: 30 ml PROCEDURE: Prior to beginning the procedure, [place] Protocol was used to confirm the patient's dre ntity and planned procedure. Maximum sterile barriers including cap, mask, hand hygiene, sterile marjorie ves, sterile gown, large sterile drape and cutaneous antisepsis were used. The right internal jugular vein was evaluated by ultrasound. An image of the patent vessel was recor ded and saved to PACS. After local anesthetic administration, this vessel was accessed with a microp uncture needle using real-time ultrasound guidance. A guidewire and catheter are placed in the lower IVC. Subsequently, digital subtraction venogram of t he IVC was performed in frontal projections. The sheath was then advanced over a wire and utilizing its dilator into position at the level of the renal vein. Subsequently, an Lorelei filter is introduced through the sheath and deployed without diff iculty. Post deployment contrast injection through the sheath with DSA demonstrates satisfactory posi tion with no contrast extravasation. The introducer sheath was removed without difficulty and hemosta sis obtained with manual compression. No immediate complications. Findings: The venacavogram images demonstrate a normal IVC diameter of less than 2.8 cm with no thrombus. The renal veins are clearly identified and marked for position. IMPRESSION: 1. Normal inferior venacavogram. 2. Successful deployment of an Kane retrievable filter in the infrarenal IVC. 3. Please refer the patient for filter retrieval, if the filter is not deemed needed anymore. Electronically signed by: Joshua Peralta MD (07/28/2021 4:15 PM) [id number]
[2021-07-28 16:33] LABS: HEMATOCRIT 22.5 % (36.0-47.0); HEMOGLOBIN 7.2 g/dL (12.0-15.5)
--- NOTE | 2021-07-28 17:02 | RAD ---
EXAM: Left upper extremity venous Doppler sonogram. HISTORY: Pain and swelling. TECHNIQUE: Burroughs scale and color Doppler sonographic evaluation of the left upper extremity veins with spectral waveform analysis was performed. FINDINGS: There is occlusive thrombus within the left basilic vein within the upper arm surrounding a peripherally inserted central venous catheter. There is normal color flow, normal compressibility an d there are normal spectral waveforms in the greater the upper extremity veins. IMPRESSION: Occlusive thrombus within the left basilic vein surrounding a peripherally inserted centr al venous catheter. These findings were communicated to the nurse caring for the patient by the supervisor prepress at the time o f the exam. Electronically signed by: Adriana Navarro MD (07/28/2021 5:00 PM) [id number]
[2021-07-28] MEDS: ATORVASTATIN CALCIUM 20 MG TABLET PO SCH (20:43)
[2021-07-28] MEDS: traZODone 50 MG TABLET. PO SCH (20:43)
[2021-07-29] VITALS (18 sets, daily range): BP systolic 87–146; BP diastolic 49–65
[2021-07-29] MEDS: oxyCODONE/APAP 5/325 1 TAB TABLET PO PRN ×3 (00:52→19:41)
[2021-07-29] MEDS: HEPARIN 25,000UTS/250ML PREMIX 250 ML IV PRN (00:53)
[2021-07-29] MEDS: HEPARIN for IV BOLUS 10,000 UNIT/10 ML VIAL. IV PRN (01:50)
[2021-07-29] MEDS: LEVOTHYROXINE 125 MCG TABLET PO SCH (05:52)
[2021-07-29 06:51] LABS: HEMATOCRIT 21.6 % (36.0-47.0); RED BLOOD COUNT 2.61 x10^6/uL (3.50-5.40); RED CELL DISTRIBUTION WIDTH 20.2 % (11.5-14.5); WHITE BLOOD COUNT 9.2 x10^3/uL (4.0-11.0)
[2021-07-29 07:43] LABS: ALBUMIN 1.3 g/dL (3.4-5.0); ALBUMIN/GLOBULIN RATIO 0.4 (1.0-1.7); CALCIUM 6.4 mg/dL (8.5-10.1); CREATININE 0.7 mg/dL (0.6-1.0); GFR 81.4; POTASSIUM 3.4 mmol/L (3.5-5.1); TOTAL BILIRUBIN 0.3 mg/dL (0.2-1.0)
[2021-07-29] MEDS: SENNOSIDES/DOCUSATE 8.6/50MG TABLET. PO SCH (07:46)
[2021-07-29] MEDS: PANTOPRAZOLE IV PUSH 40 MG VIAL. IVP SCH (08:26)
[2021-07-29] MEDS: SERTRALINE 50 MG TABLET. PO SCH (08:31)
[2021-07-29] MEDS: MULTIVITAMIN with MINERAL TABLET. PO SCH (08:31)
[2021-07-29] MEDS: CHOLECALCIFEROL (VITAMIN D3) 5,000 UNIT CAPSULE PO SCH (08:31)
[2021-07-29] MEDS: ERGOCALCIFEROL (VITAMIN D2) 50,000 UNIT CAPSULE. PO SCH (08:32)
[2021-07-29] MEDS: LACTOBACILLUS RHAMNOSUS GG 1 CAPSULE. PO SCH ×2 (08:32→21:13)
[2021-07-29] MEDS: CALCIUM CARBONATE 500 MG TABLET PO SCH ×3 (08:32→17:19)
[2021-07-29] MEDS: GABAPENTIN 300 MG CAPSULE. PO SCH ×3 (08:32→14:00)
--- NOTE | 2021-07-29 08:38 | RAD ---
EXAM: Chest, single view. HISTORY: Increased oxygen requirement. COMPARISON: 07/26/2021 FINDINGS: A frontal view of the chest is obtained. There has been interval increase in mixed diffuse interstitial and alveolar infiltrate throughout the right lung. There is stable mixed diffuse interst itial and alveolar infiltrate throughout the left lung. There are stable small pleural effusions. The re is stable cardiomegaly. There is a left PICC with the tip overlying the expected location of the s uperior vena cava. There is proximal right humeral fracture fixation instrumentation. IMPRESSION: 1. Increased right and stable left mixed diffuse interstitial and alveolar infiltrate. 2. Stable small pleural effusions. Electronically signed by: Adriana Navarro MD (07/29/2021 8:35 AM) [id number]
--- NOTE | 2021-07-29 08:48 | PDOC ---
Infectious Disease Note Subjective Subjective Patient is feeling much better ROS ROS No nausea vomiting diarrhea chest pain shortness of Vital Sign Vital Signs Vital Signs Date Time Temp Pulse Resp B/P (MAP) Pulse Ox O2 Delivery O2 Flow Rate FiO2 07/29/21 03:40 98.1 60 22 130/60 (83) 96 Nasal Cannula 6.0 98.1 Physical Exam PHYSICAL EXAM GENERAL: Alert, oriented female, not in distress. VITAL SIGNS: Stable, afebrile. HEENT: Both pupils are round and reacting. No conjunctival lesion, no lesion in the mouth. NECK: Supple, no JVP, no lymphadenopathy. LUNGS: Clear. HEART: S1, S2, regular. ABDOMEN: Soft, nontender, no organomegaly. EXTREMITIES: No edema, cyanosis. SKIN: Unremarkable. Right shoulder post surgical dressing was not open. NEUROLOGIC: The patient is alert, awake, and appropriate. No focal neurologic deficit. Labs Lab Laboratory Tests Test 07/28/21 09:41 07/28/21 10:46 07/28/21 12:09 07/28/21 13:08 Sodium Level 136 mmol/L (136-145) Potassium Level 3.4 mmol/L (3.5-5.1) Chloride Level 104 mmol/L (98-107) Carbon Dioxide Level 27 mmol/L (21-32) Anion Gap 5 (6-14) Blood Urea Nitrogen 8 mg/dL (7-20) Creatinine 0.6 mg/dL (0.6-1.0) Estimated GFR (Cockcroft-Gault) 97.2 Glucose Level 76 mg/dL (70-99) Calcium Level 6.3 mg/dL (8.5-10.1) Stool Occult Blood Negative (NEG) SARS-CoV-2 RNA (ABHIJIT) Negative (Negative) Heparin Anti-Xa Act, Unfractionated 0.13 IU/mL (0.30-0.70) Test 07/28/21 16:25 07/28/21 18:05 07/29/21 01:20 07/29/21 06:35 Hemoglobin 7.2 g/dL (12.0-15.5) 7.0 g/dL (12.0-15.5) Hematocrit 22.5 % (36.0-47.0) 21.6 % (36.0-47.0) Heparin Anti-Xa Act, Unfractionated 0.15 IU/mL (0.30-0.70) < 0.10 IU/mL (0.30-0.70) Magnesium Level 1.7 mg/dL (1.8-2.4) White Blood Count 9.2 x10^3/uL (4.0-11.0) Red Blood Count 2.61 x10^6/uL (3.50-5.40) Mean Corpuscular Volume 83 fL (79-100) Mean Corpuscular Hemoglobin 27 pg (25-35) Mean Corpuscular Hemoglobin Concent 32 g/dL (31-37) Red Cell Distribution Width 20.2 % (11.5-14.5) Platelet Count 240 x10^3/uL (140-400) Sodium Level 137 mmol/L (136-145) Potassium Level 3.4 mmol/L (3.5-5.1) Chloride Level 103 mmol/L (98-107) Carbon Dioxide Level 29 mmol/L (21-32) Anion Gap 5 (6-14) Blood Urea Nitrogen 8 mg/dL (7-20) Creatinine 0.7 mg/dL (0.6-1.0) Estimated GFR (Cockcroft-Gault) 81.4 BUN/Creatinine Ratio 11 (6-20) Glucose Level 107 mg/dL (70-99) Calcium Level 6.4 mg/dL (8.5-10.1) Total Bilirubin 0.3 mg/dL (0.2-1.0) Aspartate Amino Transf (AST/SGOT) 22 U/L (15-37) Alanine Aminotransferase (ALT/SGPT) 14 U/L (14-59) Alkaline Phosphatase 101 U/L (46-116) GI-Xbi-J-Type Natriuretic Peptide 1134 pg/mL (0-449) Total Protein 5.0 g/dL (6.4-8.2) Albumin 1.3 g/dL (3.4-5.0) Albumin/Globulin Ratio 0.4 (1.0-1.7) Micro URINE CULTURE Final Final 50,000 CFU/ML GRAM NEGATIVE RODS on 07/24/21 at 0824 FINAL ID= [PROTEUS MIRABILIS] PROTEUS MIRABILIS ANTIMICROBIAL SUSCEPTIBILITY Final Comment NEG DOUGLAS 56 PROTEUS MIRABILIS ANTIBIOTIC RESULT INTERPRETATION AMPICILLIN/SULBACTAM <=4/2 S AMIKACIN <=16 S AMPICILLIN <=8 S AMOXICILLIN/K CLAVULANATE <=8/4 S AZTREONAM <=4 S CEFTRIAXONE <=1 S CEFTAZIDIME <=1 S CEFOTAXIME <=2 S CEFOXITIN <=8 S CEFAZOLIN 4 S CIPROFLOXACIN >2 R CEFEPIME <=2 S CEFUROXIME <=4 S CEFTAZIDIME/AVIBACTAM <=4 S ERTAPENEM <=0.5 S NITROFURANTOIN 64 R* GENTAMICIN 4 S LEVOFLOXACIN >4 R MEROPENEM <=1 S PIPERACILLIN/TAZOBACTAM <=8 S TRIMETHOPRIM/SULFAMETHOXAZOLE 2/38 S TETRACYCLINE >8 R TOBRAMYCIN 8 I Unless otherwise specified, Testing Performed by: [address] [address] For Inquires, the Physician may contact the Microbiology Objective Assessment IMPRESSION: 1. Status post fall with right proximal humerus fracture, status post open reduction and internal fixation. 2. Hypotension, likely from the dehydration. 3. Acute kidney injury. 4. Elevated lipase of unclear significance, it improved in a day significantly. 5. Pulmonary infiltrate, which is a combination of CHF and/or atelectasis from pleural effusion. 6 PE Plan Plan of Care Supportive care Anticoagulation Levaquin for 7 days total BENITO BANERJEE MD Jul 29, 2021 08:48
[2021-07-29] MEDS: MEGESTROL 400 MG/10 ML ORAL.SUSP. PO SCH (08:56)
--- NOTE | 2021-07-29 09:25 | PDOC ---
PULMONARY PROGRESS NOTES DATE: 07/29/21 TIME: 09:25 Subjective Patient clinically about the same, continues to be short of air Vitals Vital Signs Date Time Temp Pulse Resp B/P (MAP) Pulse Ox O2 Delivery O2 Flow Rate FiO2 07/29/21 03:40 98.1 60 22 130/60 (83) 96 Nasal Cannula 6.0 98.1 ROS: No Nausea, No Chest Pain, No Abdominal Pain, No Increase Cough General: Alert Lungs: Crackles Cardiovascular: S1, S2 Abdomen: Soft, Non-tender Neuro Exam: Alert Extremities: No Edema Skin: Warm Labs Laboratory Tests Test 07/27/21 17:30 07/28/21 03:40 07/28/21 07:52 07/28/21 09:41 Heparin Anti-Xa Act, Unfractionated < 0.10 IU/mL (0.30-0.70) 0.14 IU/mL (0.30-0.70) White Blood Count 11.1 x10^3/uL (4.0-11.0) Red Blood Count 2.87 x10^6/uL (3.50-5.40) Hemoglobin 7.6 g/dL (12.0-15.5) Hematocrit 23.9 % (36.0-47.0) Mean Corpuscular Volume 83 fL (79-100) Mean Corpuscular Hemoglobin 27 pg (25-35) Mean Corpuscular Hemoglobin Concent 32 g/dL (31-37) Red Cell Distribution Width 20.1 % (11.5-14.5) Platelet Count 245 x10^3/uL (140-400) Sodium Level 136 mmol/L (136-145) Potassium Level 3.4 mmol/L (3.5-5.1) Chloride Level 104 mmol/L (98-107) Carbon Dioxide Level 27 mmol/L (21-32) Anion Gap 5 (6-14) Blood Urea Nitrogen 8 mg/dL (7-20) Creatinine 0.6 mg/dL (0.6-1.0) Estimated GFR (Cockcroft-Gault) 97.2 Glucose Level 76 mg/dL (70-99) Calcium Level 6.3 mg/dL (8.5-10.1) Test 07/28/21 10:46 07/28/21 12:09 07/28/21 13:08 07/28/21 16:25 Stool Occult Blood Negative (NEG) SARS-CoV-2 RNA (ABHIJIT) Negative (Negative) Heparin Anti-Xa Act, Unfractionated 0.13 IU/mL (0.30-0.70) Hemoglobin 7.2 g/dL (12.0-15.5) Hematocrit 22.5 % (36.0-47.0) Test 07/28/21 18:05 07/29/21 01:20 07/29/21 06:35 Heparin Anti-Xa Act, Unfractionated 0.15 IU/mL (0.30-0.70) < 0.10 IU/mL (0.30-0.70) Magnesium Level 1.7 mg/dL (1.8-2.4) White Blood Count 9.2 x10^3/uL (4.0-11.0) Red Blood Count 2.61 x10^6/uL (3.50-5.40) Hemoglobin 7.0 g/dL (12.0-15.5) Hematocrit 21.6 % (36.0-47.0) Mean Corpuscular Volume 83 fL (79-100) Mean Corpuscular Hemoglobin 27 pg (25-35) Mean Corpuscular Hemoglobin Concent 32 g/dL (31-37) Red Cell Distribution Width 20.2 % (11.5-14.5) Platelet Count 240 x10^3/uL (140-400) Sodium Level 137 mmol/L (136-145) Potassium Level 3.4 mmol/L (3.5-5.1) Chloride Level 103 mmol/L (98-107) Carbon Dioxide Level 29 mmol/L (21-32) Anion Gap 5 (6-14) Blood Urea Nitrogen 8 mg/dL (7-20) Creatinine 0.7 mg/dL (0.6-1.0) Estimated GFR (Cockcroft-Gault) 81.4 BUN/Creatinine Ratio 11 (6-20) Glucose Level 107 mg/dL (70-99) Calcium Level 6.4 mg/dL (8.5-10.1) Total Bilirubin 0.3 mg/dL (0.2-1.0) Aspartate Amino Transf (AST/SGOT) 22 U/L (15-37) Alanine Aminotransferase (ALT/SGPT) 14 U/L (14-59) Alkaline Phosphatase 101 U/L (46-116) FR-Bse-T-Type Natriuretic Peptide 1134 pg/mL (0-449) Total Protein 5.0 g/dL (6.4-8.2) Albumin 1.3 g/dL (3.4-5.0) Albumin/Globulin Ratio 0.4 (1.0-1.7) Laboratory Tests Test 07/28/21 09:41 07/28/21 10:46 07/28/21 12:09 07/28/21 13:08 Sodium Level 136 mmol/L (136-145) Potassium Level 3.4 mmol/L (3.5-5.1) Chloride Level 104 mmol/L (98-107) Carbon Dioxide Level 27 mmol/L (21-32) Anion Gap 5 (6-14) Blood Urea Nitrogen 8 mg/dL (7-20) Creatinine 0.6 mg/dL (0.6-1.0) Estimated GFR (Cockcroft-Gault) 97.2 Glucose Level 76 mg/dL (70-99) Calcium Level 6.3 mg/dL (8.5-10.1) Stool Occult Blood Negative (NEG) SARS-CoV-2 RNA (ABHIJIT) Negative (Negative) Heparin Anti-Xa Act, Unfractionated 0.13 IU/mL (0.30-0.70) Test 07/28/21 16:25 07/28/21 18:05 07/29/21 01:20 07/29/21 06:35 Hemoglobin 7.2 g/dL (12.0-15.5) 7.0 g/dL (12.0-15.5) Hematocrit 22.5 % (36.0-47.0) 21.6 % (36.0-47.0) Heparin Anti-Xa Act, Unfractionated 0.15 IU/mL (0.30-0.70) < 0.10 IU/mL (0.30-0.70) Magnesium Level 1.7 mg/dL (1.8-2.4) White Blood Count 9.2 x10^3/uL (4.0-11.0) Red Blood Count 2.61 x10^6/uL (3.50-5.40) Mean Corpuscular Volume 83 fL (79-100) Mean Corpuscular Hemoglobin 27 pg (25-35) Mean Corpuscular Hemoglobin Concent 32 g/dL (31-37) Red Cell Distribution Width 20.2 % (11.5-14.5) Platelet Count 240 x10^3/uL (140-400) Sodium Level 137 mmol/L (136-145) Potassium Level 3.4 mmol/L (3.5-5.1) Chloride Level 103 mmol/L (98-107) Carbon Dioxide Level 29 mmol/L (21-32) Anion Gap 5 (6-14) Blood Urea Nitrogen 8 mg/dL (7-20) Creatinine 0.7 mg/dL (0.6-1.0) Estimated GFR (Cockcroft-Gault) 81.4 BUN/Creatinine Ratio 11 (6-20) Glucose Level 107 mg/dL (70-99) Calcium Level 6.4 mg/dL (8.5-10.1) Total Bilirubin 0.3 mg/dL (0.2-1.0) Aspartate Amino Transf (AST/SGOT) 22 U/L (15-37) Alanine Aminotransferase (ALT/SGPT) 14 U/L (14-59) Alkaline Phosphatase 101 U/L (46-116) QN-Jrb-L-Type Natriuretic Peptide 1134 pg/mL (0-449) Total Protein 5.0 g/dL (6.4-8.2) Albumin 1.3 g/dL (3.4-5.0) Albumin/Globulin Ratio 0.4 (1.0-1.7) Medications Active Scripts Medications Dose Route/Sig Max Daily Dose Days Date Category Trazodone Hcl 50 Mg Tablet 1 Tab PO QHS 07/19/21 Reported Zoloft (Sertraline Hcl) 50 Mg Tablet 1 Tab PO DAILY 07/19/21 Reported Polyethylene Glycol 3350 2,500 Gm Powder 17 Gm PO DAILY 07/19/21 Reported Metoprolol Tartrate 25 Mg Tablet 1 Tab PO BID 07/19/21 Reported Megestrol Acetate 400 Mg/10 Ml Oral.susp 400 Mg PO DAILY 07/19/21 Reported Levothyroxine Sodium 125 Mcg Tablet 1 Tab PO DAILY 07/19/21 Reported Lactulose 20 Gm/30 Ml Solution 10 Gm PO PRN DAILY 07/19/21 Reported Gabapentin 300 Mg Capsule 300 Mg PO TID 07/19/21 Reported Atorvastatin Calcium 20 Mg Tablet 1 Tab PO HS 07/19/21 Reported Amiodarone Hcl 200 Mg Tablet 1 Tab PO BID 07/19/21 Reported Impression . IMPRESSION: 1. Acute hypoxemic respiratory failure, multifactorial. 2. Acute pulmonary embolism. 3. Acute on chronic diastolic heart failure. 4. Paroxysmal atrial fibrillation. 5. Abnormal CT chest. 6. Hyperlipidemia. 7. Acute pancreatitis. 8. Status post open treatment proximal humerus surgical neck fracture with internal fixation. 9. Urinary tract infection, Proteus mirabilis. 10. Acute kidney injury, improved. 11. Bilateral pleural effusions. 12. Acute pancreatitis. Plan . Updated 07/29 Continue oxygen supplementation IV heparin Diuresed Increase nutritional support Anticoagulation PLAN: 1. We will continue oxygen supplementation. 2. Discussed with juanjose Triana to transfer out of the ICU. 3. IV heparin. 4. Follow Cardiology input. 5. Diurese. 6. Continue current support. 7. Follow ortho input. The above was discussed with the RN, Dr. Pratt. AMIE NARAYAN MD Jul 29, 2021 09:25
--- NOTE | 2021-07-29 10:20 | NUR ---
Wound/Ostomy Care Wound Type/Assessment: Patient seen per wound care consult. See wound assessment. Patient has an abrasion from previous fall to the right elbow and a coccyx PU Stage II with DTI. Wounds cleansed and assessed. Right elbow wound is draining with good pink healthy tissue and minimal slough. The coccyx is peeling with some openings surrounding DTI. Patient is able to assist with turning therefore does not a P-500 bed unless she does not continue to turn and offload with assistance. Patient had small BM, patient cleaned up and draw sheet and chux changed. Treatment Recommendations/Plan: Recommendations for contact layer (left in room) and cover with foam dressing, change on Wednesday and Wednesday. A&D ointment ordered and applied for this patient. Aquacel foams applied to bialteral heels for protection and heel medix ordered as well. Education provided: Patient educated on PU treatment and management. Offloading surface/device: A purple wedge ordered, patient turned to left side using wedge, heel medix ordered. RN notified regarding these supplies ordered for this patient. Recommended Referrals/Tests: N/A Discharge Recommendations for dressings: Dressing change instructions left in room. No other wounds noted. Bed lowered and call light in reach. Wound care will follow up on 08/06/21.
[2021-07-29] MEDS: ZINC OXIDE 20% TOPICAL OINTMENT 28GM TUBE. TP SCH ×2 (11:00→21:14)
--- NOTE | 2021-07-29 11:37 | PN ---
DATE: 07/29/2021 SUBJECTIVE: The patient is resting almost flat in bed, in no apparent respiratory distress. She denied any chest pain. Denied any abdominal pain or back pain. She has had an inferior vena cava filter placed successfully. Her COVID-19 by PCR was repeated yesterday and was negative. Ultrasound of the left upper extremity showed that she has an occlusive thrombus within the left basilic vein surrounding peripherally inserted central venous catheter; however, her H and H has dropped further today down to 7 and 21 and therefore, I discontinued the heparin drip, will type and cross and transfuse her 2 units of packed RBCs. PHYSICAL EXAMINATION: GENERAL: When I examined her this morning, she was pale, not jaundiced or cyanosed, no lymphadenopathy, no thyromegaly, no jugular venous distention. She has generalized anasarca. VITAL SIGNS: Her heart rate was 71, blood pressure was 146/65, temperature was 98.8, respiratory rate was 18 and oxygen saturation was 96% on 5 liters of oxygen. HEAD, EYES, EARS, NOSE, AND THROAT: Normocephalic, atraumatic. NECK: Supple. HEART: Showed normal first and second heart sounds. No gallop, rub or murmur. CHEST: Clear to auscultation, no crepitation or rhonchi. ABDOMEN: Distended, soft, nontender. NEUROLOGIC: She was grossly intact. EXTREMITIES: Her right upper extremity is in a right shoulder immobilizer. Her intake was 1000, output was 750. LABORATORY DATA: As of this morning, her white cell count was 9200, hemoglobin 7, hematocrit 21, MCV 83 and platelet count 240,000. Her chemistry showed a serum sodium 137, potassium 3.4, chloride 103, bicarbonate 29, anion gap of 5, BUN 8, creatinine 0.7. Estimated GFR was 81 mL per minute. Her glucose 107, calcium was 6.4. Total bilirubin, AST, ALT, alkaline phosphatase were normal. Total protein 5, albumin was 1.3. His stool for occult blood was negative. ASSESSMENT: 1. Acute hypoxic respiratory failure. Differential diagnoses includes acute pulmonary edema, multifocal consolidative pneumonia, pulmonary embolism. Her CT angio of the chest did show that she has a filling defect in the left main pulmonary artery extending into the left lower lobe pulmonary artery. She has also bilateral pleural effusion, bilateral lung infiltrate. 2. Fall with resultant right proximal humerus fracture, status post open reduction internal fixation. 3. Symptomatic sinus bradycardia for which we held her metoprolol and amiodarone. 4. Osteoporosis. 5. Generalized osteoarthritis. 6. Acute pancreatitis that has resolved. 7. Urinary retention requiring indwelling Key catheter. 8. Acute kidney injury. Serum creatinine that has risen up to 2.4. Her most recent serum creatinine as of this morning was 0.7 mg/dL. 9. The patient has multiple other medical problems including: A. Chylothorax and empyema, status post video-assisted thoracoscopic surgery. B. Atrial fibrillation, rate controlled, not anticoagulated. C. Hypothyroidism. D. Hyperparathyroidism. E. Hypertension; however, the patient is borderline hypotensive. F. Hyperlipidemia. 10. Hypocalcemia that has actually improved. She is now 1000 mg of calcium carbonate and 5000 units of vitamin D on a daily basis. 11. Hypokalemia that has a serum potassium only 3.4 for which we will start her on potassium supplement. 12. Anemia with hemoglobin and hematocrit dropped down to 7 and 21. PLAN: We will type and cross and transfuse 2 units of packed RBCs. Continue with physical and occupational therapy and hopefully we can transfer her back to [facility] tomorrow. DIDIER DR: Meeta TID: [id number]
[2021-07-29] MEDS: POTASSIUM CHLORIDE 20 MEQ TABLET.ER. PO SCH ×2 (12:10→14:02)
--- NOTE | 2021-07-29 12:50 | NUR ---
SS following up with discharge planning. SS reviewed pt chart and discussed with pt RN. Pt is currently requiring oxygen at six liters nasal canula. COVID19 negative. IVC filter in place. Hemoglobin 7 today. Pt getting two units of blood. pt is LTC resident from [facility], ; fax [phone]. Clinical updates phoned and faxed to [facility]. SS will continue to follow for discharge planning.
--- NOTE | 2021-07-29 14:40 | PDOC ---
LUCIE WARREN [employer] MECH[employer]IC HELPER 07/29/21 1439: CARDIO Progress Notes Date and Time Date of Service 07/29/21 Time of Evaluation 1145 Subjective Subjective: No Chest Pain, No shortness of breath, No Palpitations Vitals Vitals Vital Signs Date Time Temp Pulse Resp B/P (MAP) Pulse Ox O2 Delivery O2 Flow Rate FiO2 07/29/21 11:00 97.7 61 16 120/58 (78) 98 Nasal Cannula 6.0 97.7 Weight Weight [ ] Input and Output Intake and Output Intake and Output 07/29/21 07:00 Intake Total 1190 ml Output Total 1700 ml Balance -510 ml Intake Oral 940 ml IV Total 250 ml Output Urine Total 1700 ml # Bowel Movements 6 Laboratory Labs Laboratory Tests Test 07/28/21 16:25 07/28/21 18:05 07/29/21 01:20 07/29/21 06:35 Hemoglobin 7.2 g/dL (12.0-15.5) 7.0 g/dL (12.0-15.5) Hematocrit 22.5 % (36.0-47.0) 21.6 % (36.0-47.0) Heparin Anti-Xa Act, Unfractionated 0.15 IU/mL (0.30-0.70) < 0.10 IU/mL (0.30-0.70) Magnesium Level 1.7 mg/dL (1.8-2.4) White Blood Count 9.2 x10^3/uL (4.0-11.0) Red Blood Count 2.61 x10^6/uL (3.50-5.40) Mean Corpuscular Volume 83 fL (79-100) Mean Corpuscular Hemoglobin 27 pg (25-35) Mean Corpuscular Hemoglobin Concent 32 g/dL (31-37) Red Cell Distribution Width 20.2 % (11.5-14.5) Platelet Count 240 x10^3/uL (140-400) Sodium Level 137 mmol/L (136-145) Potassium Level 3.4 mmol/L (3.5-5.1) Chloride Level 103 mmol/L (98-107) Carbon Dioxide Level 29 mmol/L (21-32) Anion Gap 5 (6-14) Blood Urea Nitrogen 8 mg/dL (7-20) Creatinine 0.7 mg/dL (0.6-1.0) Estimated GFR (Cockcroft-Gault) 81.4 BUN/Creatinine Ratio 11 (6-20) Glucose Level 107 mg/dL (70-99) Calcium Level 6.4 mg/dL (8.5-10.1) Total Bilirubin 0.3 mg/dL (0.2-1.0) Aspartate Amino Transf (AST/SGOT) 22 U/L (15-37) Alanine Aminotransferase (ALT/SGPT) 14 U/L (14-59) Alkaline Phosphatase 101 U/L (46-116) KH-Liy-N-Type Natriuretic Peptide 1134 pg/mL (0-449) Total Protein 5.0 g/dL (6.4-8.2) Albumin 1.3 g/dL (3.4-5.0) Albumin/Globulin Ratio 0.4 (1.0-1.7) Test 07/29/21 08:25 Heparin Anti-Xa Act, Unfractionated > 1.10 IU/mL (0.30-0.70) Microbiology Micro Microbiology 07/22/21 Blood Culture - Final, Complete NO GROWTH AFTER 5 DAYS 07/22/21 Urine Culture - Final, Complete 07/22/21 Antimicrobic Susceptibility - Final, Complete Review of Systems Constitutional: yes: other (CONFUSED) Ears/Nose/Throat: Yes: no symptom reported Eyes: Yes: no symptom reported Pulmonary: Yes no symptom reported Cardiovascular: Yes no symptom reported Gastrointestional: Yes: no symptom reported Genitourinary: Yes: no symptom reported Musculoskeletal: Yes: no symptom reported Skin: Yes no symptom reported Psychiatric/Neurological: Yes: no symptom reported Endocrine: Yes: no symptom reported Hematologic/Lymphatic: Yes: no symptom reported Physical Exam HEENT: Neck Supple W Full Motion Chest: Symmetric LUNGS: Other (diminished ) Heart: RRR Abdomen: Soft N/T Extremities: Other (trace- 1+ bilateral LE edema ) Neurology: alert, follow commands Assessment Assessment 1. Acute on chronic diastolic heart failure: Better compensated after diuresis. Echo with preserved LV systolic function 2. PAFIB; presently SR. Amiodarone and metoprolol have been held secondary to bradycardia on admission. 3. Acute respiratory failure; multifactorial. as per pulmonary 4. Proximal humeral fracture post mechanical fall: s/p surgical fixation. 5. Hyperlipidemia: Continue statin therapy 6. Acute pancreatitis: Continue supportive care per IM 7. Acute PE; s/p IVC filter 8. Anemia; hgb drift to 7. No obvious bleeding. heparin held. to be transfused 9. Hypokalemia, hypomagnesemia 10. LUE DVT Recommendations Lasix therapy No BB due to hypotension, bradycardia Monitor H and H; transfuse as warranted Consider outpatient referral for left atrial appendage closure. Ongoing lung optimization Continue postop care per orthopedics team Justicifation of Admission Dx: Justifications for Admission: Justification of Admission Dx: Yes JOSIAH SULTANA MD 07/29/21 1504: CARDIO Progress Notes Assessment Assessment Patient seen and examined. Agree with THEATRICAL AGENT's assessment and plan. Acute on chronic diastolic heart failure better compensated. 2D echo showed normal LV systolic function PAF maintaining sinus rhythm. Patient is poor candidate for long-term anticoagulation. Will consider outpatient referral for left atrial appendage closure. LUCIE WARREN APRN Jul 29, 2021 14:39 JOSIAH SULTANA MD Jul 29, 2021 15:04
[2021-07-29] MEDS ORDERED: FUROSEMIDE 40 MG/4 ML VIAL. IVP ONE (14:45)
[2021-07-29] MEDS ORDERED: POTASSIUM CHLORIDE 20 MEQ TABLET.ER. PO ONE (14:45)
[2021-07-29] MEDS ORDERED: MAGNESIUM SULFATE 2GM 50 ML IV ONE (15:00)
[2021-07-29] MEDS: PANTOPRAZOLE 40 MG TABLET.DR. PO SCH (16:30)
[2021-07-29] MEDS: traZODone 50 MG TABLET. PO SCH (21:13)
[2021-07-29] MEDS: ATORVASTATIN CALCIUM 20 MG TABLET PO SCH (21:13)
[2021-07-30 02:19] VITALS: BP 117/56
[2021-07-30] MEDS: oxyCODONE/APAP 5/325 1 TAB TABLET PO PRN ×3 (03:07→13:10)
[2021-07-30] MEDS: LEVOTHYROXINE 125 MCG TABLET PO SCH (06:14)
[2021-07-30] MEDS: PANTOPRAZOLE 40 MG TABLET.DR. PO SCH (06:15)
[2021-07-30 07:00] VITALS: BP 144/64
--- NOTE | 2021-07-30 07:17 | PDOC ---
Infectious Disease Note Subjective Subjective Patient is feeling much better ROS ROS No nausea vomiting does have loose stool Vital Sign Vital Signs Vital Signs Date Time Temp Pulse Resp B/P (MAP) Pulse Ox O2 Delivery O2 Flow Rate FiO2 07/30/21 03:37 18 98 Nasal Cannula 4.0 07/30/21 02:19 97.8 58 117/56 (76) 97.8 Physical Exam PHYSICAL EXAM GENERAL: Alert, oriented female, not in distress. VITAL SIGNS: Stable, afebrile. HEENT: Both pupils are round and reacting. No conjunctival lesion, no lesion in the mouth. NECK: Supple, no JVP, no lymphadenopathy. LUNGS: Clear. HEART: S1, S2, regular. ABDOMEN: Soft, nontender, no organomegaly. EXTREMITIES: No edema, cyanosis. SKIN: Unremarkable. Right shoulder post surgical dressing was not open. NEUROLOGIC: The patient is alert, awake, and appropriate. No focal neurologic deficit. Labs Lab Laboratory Tests Test 07/29/21 08:25 Heparin Anti-Xa Act, Unfractionated > 1.10 IU/mL (0.30-0.70) Micro URINE CULTURE Final Final 50,000 CFU/ML GRAM NEGATIVE RODS on 07/24/21 at 0824 FINAL ID= [PROTEUS [email or web address]] PROTEUS MIRABILIS ANTIMICROBIAL SUSCEPTIBILITY Final Comment NEG DOUGLAS 56 PROTEUS MIRABILIS ANTIBIOTIC RESULT INTERPRETATION AMPICILLIN/SULBACTAM <=4/2 S AMIKACIN <=16 S AMPICILLIN <=8 S AMOXICILLIN/K CLAVULANATE <=8/4 S AZTREONAM <=4 S CEFTRIAXONE <=1 S CEFTAZIDIME <=1 S CEFOTAXIME <=2 S CEFOXITIN <=8 S CEFAZOLIN 4 S CIPROFLOXACIN >2 R CEFEPIME <=2 S CEFUROXIME <=4 S CEFTAZIDIME/AVIBACTAM <=4 S ERTAPENEM <=0.5 S NITROFURANTOIN 64 R* GENTAMICIN 4 S LEVOFLOXACIN >4 R MEROPENEM <=1 S PIPERACILLIN/TAZOBACTAM <=8 S TRIMETHOPRIM/SULFAMETHOXAZOLE 2/38 S TETRACYCLINE >8 R TOBRAMYCIN 8 I Unless otherwise specified, Testing Performed by: [address] [address] For Inquires, the Physician may contact the Microbiology Objective Assessment IMPRESSION: 1. Status post fall with right proximal humerus fracture, status post open reduction and internal fixation. 2. Hypotension, likely from the dehydration. 3. Acute kidney injury. 4. Elevated lipase of unclear significance, it improved in a day significantly. 5. Pulmonary infiltrate, which is a combination of CHF and/or atelectasis from pleural effusion. 6 PE Plan Plan of Care Supportive care Anticoagulation Levaquin for 7 days total Check stool for C. difficile BENITO BANERJEE MD Jul 30, 2021 07:17
[2021-07-30 07:58] LABS: CALCIUM 6.5 mg/dL (8.5-10.1); CREATININE 0.7 mg/dL (0.6-1.0); GFR 81.4; POTASSIUM 3.9 mmol/L (3.5-5.1)
--- NOTE | 2021-07-30 08:36 | PDOC ---
PULMONARY PROGRESS NOTES DATE: 07/30/21 TIME: 08:36 Subjective Patient clinically about the same, continues to be short of air Vitals Vital Signs Date Time Temp Pulse Resp B/P (MAP) Pulse Ox O2 Delivery O2 Flow Rate FiO2 07/30/21 07:24 18 98 Nasal Cannula 4.0 07/30/21 02:19 97.8 58 117/56 (76) 97.8 ROS: No Nausea, No Chest Pain, No Abdominal Pain, No Increase Cough General: Alert Lungs: Crackles Cardiovascular: S1, S2 Abdomen: Soft, Non-tender Neuro Exam: Alert Extremities: No Edema Skin: Warm Labs Laboratory Tests Test 07/28/21 09:41 07/28/21 10:46 07/28/21 12:09 07/28/21 13:08 Sodium Level 136 mmol/L (136-145) Potassium Level 3.4 mmol/L (3.5-5.1) Chloride Level 104 mmol/L (98-107) Carbon Dioxide Level 27 mmol/L (21-32) Anion Gap 5 (6-14) Blood Urea Nitrogen 8 mg/dL (7-20) Creatinine 0.6 mg/dL (0.6-1.0) Estimated GFR (Cockcroft-Gault) 97.2 Glucose Level 76 mg/dL (70-99) Calcium Level 6.3 mg/dL (8.5-10.1) Stool Occult Blood Negative (NEG) SARS-CoV-2 RNA (ABHIJIT) Negative (Negative) Heparin Anti-Xa Act, Unfractionated 0.13 IU/mL (0.30-0.70) Test 07/28/21 16:25 07/28/21 18:05 07/29/21 01:20 07/29/21 06:35 Hemoglobin 7.2 g/dL (12.0-15.5) 7.0 g/dL (12.0-15.5) Hematocrit 22.5 % (36.0-47.0) 21.6 % (36.0-47.0) Heparin Anti-Xa Act, Unfractionated 0.15 IU/mL (0.30-0.70) < 0.10 IU/mL (0.30-0.70) Magnesium Level 1.7 mg/dL (1.8-2.4) White Blood Count 9.2 x10^3/uL (4.0-11.0) Red Blood Count 2.61 x10^6/uL (3.50-5.40) Mean Corpuscular Volume 83 fL (79-100) Mean Corpuscular Hemoglobin 27 pg (25-35) Mean Corpuscular Hemoglobin Concent 32 g/dL (31-37) Red Cell Distribution Width 20.2 % (11.5-14.5) Platelet Count 240 x10^3/uL (140-400) Sodium Level 137 mmol/L (136-145) Potassium Level 3.4 mmol/L (3.5-5.1) Chloride Level 103 mmol/L (98-107) Carbon Dioxide Level 29 mmol/L (21-32) Anion Gap 5 (6-14) Blood Urea Nitrogen 8 mg/dL (7-20) Creatinine 0.7 mg/dL (0.6-1.0) Estimated GFR (Cockcroft-Gault) 81.4 BUN/Creatinine Ratio 11 (6-20) Glucose Level 107 mg/dL (70-99) Calcium Level 6.4 mg/dL (8.5-10.1) Total Bilirubin 0.3 mg/dL (0.2-1.0) Aspartate Amino Transf (AST/SGOT) 22 U/L (15-37) Alanine Aminotransferase (ALT/SGPT) 14 U/L (14-59) Alkaline Phosphatase 101 U/L (46-116) WL-Jec-F-Type Natriuretic Peptide 1134 pg/mL (0-449) Total Protein 5.0 g/dL (6.4-8.2) Albumin 1.3 g/dL (3.4-5.0) Albumin/Globulin Ratio 0.4 (1.0-1.7) Test 07/29/21 08:25 07/30/21 07:32 Heparin Anti-Xa Act, Unfractionated > 1.10 IU/mL (0.30-0.70) Hemoglobin 9.4 g/dL (12.0-15.5) Sodium Level 136 mmol/L (136-145) Potassium Level 3.9 mmol/L (3.5-5.1) Chloride Level 102 mmol/L (98-107) Carbon Dioxide Level 32 mmol/L (21-32) Anion Gap 2 (6-14) Blood Urea Nitrogen 8 mg/dL (7-20) Creatinine 0.7 mg/dL (0.6-1.0) Estimated GFR (Cockcroft-Gault) 81.4 Glucose Level 99 mg/dL (70-99) Calcium Level 6.5 mg/dL (8.5-10.1) Laboratory Tests Test 07/30/21 07:32 Hemoglobin 9.4 g/dL (12.0-15.5) Sodium Level 136 mmol/L (136-145) Potassium Level 3.9 mmol/L (3.5-5.1) Chloride Level 102 mmol/L (98-107) Carbon Dioxide Level 32 mmol/L (21-32) Anion Gap 2 (6-14) Blood Urea Nitrogen 8 mg/dL (7-20) Creatinine 0.7 mg/dL (0.6-1.0) Estimated GFR (Cockcroft-Gault) 81.4 Glucose Level 99 mg/dL (70-99) Calcium Level 6.5 mg/dL (8.5-10.1) Medications Active Scripts Medications Dose Route/Sig Max Daily Dose Days Date Category Trazodone Hcl 50 Mg Tablet 1 Tab PO QHS 07/19/21 Reported Zoloft (Sertraline Hcl) 50 Mg Tablet 1 Tab PO DAILY 07/19/21 Reported Polyethylene Glycol 3350 2,500 Gm Powder 17 Gm PO DAILY 07/19/21 Reported Metoprolol Tartrate 25 Mg Tablet 1 Tab PO BID 07/19/21 Reported Megestrol Acetate 400 Mg/10 Ml Oral.susp 400 Mg PO DAILY 07/19/21 Reported Levothyroxine Sodium 125 Mcg Tablet 1 Tab PO DAILY 07/19/21 Reported Lactulose 20 Gm/30 Ml Solution 10 Gm PO PRN DAILY 07/19/21 Reported Gabapentin 300 Mg Capsule 300 Mg PO TID 07/19/21 Reported Atorvastatin Calcium 20 Mg Tablet 1 Tab PO HS 07/19/21 Reported Amiodarone Hcl 200 Mg Tablet 1 Tab PO BID 07/19/21 Reported Impression . IMPRESSION: 1. Acute hypoxemic respiratory failure, multifactorial. 2. Acute pulmonary embolism. 3. Acute on chronic diastolic heart failure. 4. Paroxysmal atrial fibrillation. 5. Abnormal CT chest. 6. Hyperlipidemia. 7. Acute pancreatitis. 8. Status post open treatment proximal humerus surgical neck fracture with internal fixation. 9. Urinary tract infection, Proteus mirabilis. 10. Acute kidney injury, improved. 11. Bilateral pleural effusions. 12. Acute pancreatitis. Plan . dc today follow up with me in office AMIE NARAYAN MD Jul 30, 2021 08:36
[2021-07-30] MEDS: SENNOSIDES/DOCUSATE 8.6/50MG TABLET. PO SCH (09:00)
[2021-07-30] MEDS: MULTIVITAMIN with MINERAL TABLET. PO SCH (09:37)
[2021-07-30] MEDS: GABAPENTIN 300 MG CAPSULE. PO SCH ×2 (09:37→13:10)
[2021-07-30] MEDS: POTASSIUM CHLORIDE 20 MEQ TABLET.ER. PO SCH ×2 (09:38→13:10)
[2021-07-30] MEDS: SERTRALINE 50 MG TABLET. PO SCH (09:38)
[2021-07-30] MEDS: LACTOBACILLUS RHAMNOSUS GG 1 CAPSULE. PO SCH (09:38)
[2021-07-30] MEDS: CHOLECALCIFEROL (VITAMIN D3) 5,000 UNIT CAPSULE PO SCH (09:38)
[2021-07-30] MEDS: MEGESTROL 400 MG/10 ML ORAL.SUSP. PO SCH (09:39)
[2021-07-30] MEDS: CALCIUM CARBONATE 500 MG TABLET PO SCH ×2 (09:44→13:09)
[2021-07-30] MEDS: ZINC OXIDE 20% TOPICAL OINTMENT 28GM TUBE. TP SCH (09:46)
[2021-07-30 11:00] VITALS: BP 145/63
[2021-07-30] MEDS ORDERED: OXYC-325 PO (11:52)
--- NOTE | 2021-07-30 11:55 | SNU/HH DC ---
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 (4) Hypokalemia Status: Acute (5) Hypovitaminosis D Status: Acute (6) Proximal humerus fracture Status: Acute (7) Symptomatic bradycardia Status: Acute CONDITION ON DISCHARGE: Stable CODE STATUS: Code Status: Full INTERMEDIATE: SNF STAY <30 DAYS: Yes POST DISCHARGE ORDERS: ACTIVITY ORDERS: Activity as tolerated DIET AFTER DISCHARGE: Regular TREATMENT/EQUIPMENT ORDERS: RESPIRATORY EQUIPMENT NEEDED: Oxygen Physical Therapy For: Evalulation/Treatment Occupational Therapy For: Evaluation/Treatment Speech Language Pathology For: Evaluation/Treatment DISCHARGE MEDICATIONS: Home Meds Active Scripts Oxycodone HCl/Acetaminophen (Percocet 5-325 mg Tablet) 1 Each Tablet, 1 EACH PO Q4H for pain for 30 Days, #180 TAB Prov:FLAQUITO MENDES MD 07/30/21 Reported Medications Trazodone Hcl (TRAZODONE HCL) 50 Mg Tablet, 1 TAB PO QHS for sleep, #30 TAB 1 Refill 07/19/21 Sertraline Hcl (ZOLOFT) 50 Mg Tablet, 1 TAB PO DAILY for depression, #30 TAB 2 Refills 07/19/21 Polyethylene Glycol 3350 (POLYETHYLENE GLYCOL 3350) 2,500 Gm Powder, 17 GM PO DAILY for constipation, #255 GM 0 Refills 07/19/21 Megestrol Acetate (MEGESTROL ACETATE) 400 Mg/10 Ml Oral.susp, 400 MG PO DAILY for appetite, MISC 07/19/21 Levothyroxine Sodium (LEVOTHYROXINE SODIUM) 125 Mcg Tablet, 1 TAB PO DAILY for thyroid, #30 TAB 5 Refills 07/19/21 Lactulose (LACTULOSE) 20 Gm/30 Ml Solution, 10 GM PO PRN DAILY for liver, MISC 07/19/21 Gabapentin (GABAPENTIN) 300 Mg Capsule, 300 MG PO TID for NEUROGENIC PAIN, CAP 07/19/21 Atorvastatin Calcium (ATORVASTATIN CALCIUM) 20 Mg Tablet, 1 TAB PO HS for HLD, #30 TAB 5 Refills 07/19/21 Discontinued Reported Medications Metoprolol Tartrate (METOPROLOL TARTRATE) 25 Mg Tablet, 1 TAB PO BID for HTN, #180 TAB 1 Refill 07/19/21 Amiodarone Hcl (AMIODARONE HCL) 200 Mg Tablet, 1 TAB PO BID for rhythm control, #90 TAB 1 Refill 07/19/21 FLAQUITO MENDES MD Jul 30, 2021 11:55
--- NOTE | 2021-07-30 12:06 | NUR ---
SS following up with discharge planning. SS reviewed pt chart and discussed with pt RN. Pt is currently requiring oxygen at four liters nasal canula. Discharge orders received for return to facility. Pt is LTC resident from [facility], ; fax [phone]. Discharge orders phoned and faxed to [facility]. Pt will discharge today and return to [facility] at 1630 via [facility]. Transportation arranged by [facility]. Pt and pt's RN notified.
--- NOTE | 2021-07-30 13:03 | PDOC ---
LUCIE WARREN RETAIL STOCK CLERK 07/30/21 1303: CARDIO Progress Notes Date and Time Date of Service 07/30/21 Time of Evaluation 1300 Subjective Subjective: No Chest Pain, No shortness of breath, No Palpitations Vitals Vitals Vital Signs Date Time Temp Pulse Resp B/P (MAP) Pulse Ox O2 Delivery O2 Flow Rate FiO2 07/30/21 11:00 97.9 63 18 145/63 (90) 96 Nasal Cannula 4.0 97.9 Weight Weight [ ] Input and Output Intake and Output Intake and Output 07/30/21 07:00 Intake Total 1960 ml Output Total 4475 ml Balance -2515 ml Intake Oral 530 ml Blood Product IV Normal Saline Flush 1430 ml Output Urine Total 4475 ml # Voids 1 # Bowel Movements 2 Laboratory Labs Laboratory Tests Test 07/30/21 07:32 Hemoglobin 9.4 g/dL (12.0-15.5) Sodium Level 136 mmol/L (136-145) Potassium Level 3.9 mmol/L (3.5-5.1) Chloride Level 102 mmol/L (98-107) Carbon Dioxide Level 32 mmol/L (21-32) Anion Gap 2 (6-14) Blood Urea Nitrogen 8 mg/dL (7-20) Creatinine 0.7 mg/dL (0.6-1.0) Estimated GFR (Cockcroft-Gault) 81.4 Glucose Level 99 mg/dL (70-99) Calcium Level 6.5 mg/dL (8.5-10.1) Microbiology Micro Microbiology 07/22/21 Blood Culture - Final, Complete NO GROWTH AFTER 5 DAYS 07/22/21 Urine Culture - Final, Complete 07/22/21 Antimicrobic Susceptibility - Final, Complete Review of Systems Constitutional: yes: other (CONFUSED) Ears/Nose/Throat: Yes: no symptom reported Eyes: Yes: no symptom reported Pulmonary: Yes no symptom reported Cardiovascular: Yes no symptom reported Gastrointestional: Yes: no symptom reported Genitourinary: Yes: no symptom reported Musculoskeletal: Yes: no symptom reported Skin: Yes no symptom reported Psychiatric/Neurological: Yes: no symptom reported Endocrine: Yes: no symptom reported Hematologic/Lymphatic: Yes: no symptom reported Physical Exam HEENT: Neck Supple W Full Motion Chest: Symmetric LUNGS: Other (diminished ) Heart: RRR Abdomen: Soft N/T Extremities: Other (trace- 1+ bilateral LE edema ) Neurology: alert, follow commands Assessment Assessment 1. Acute on chronic diastolic heart failure: Better compensated after diuresis. Echo with preserved LV systolic function 2. PAFIB; presently SR/SB. Amiodarone and metoprolol discontinued secondary to bradycardia. 3. Acute respiratory failure; multifactorial. as per pulmonary 4. Proximal humeral fracture post mechanical fall: s/p surgical fixation. 5. Hyperlipidemia: statin therapy 6. Acute pancreatitis: Continue supportive care per IM 7. Acute PE; s/p IVC filter 8. Anemia; hgb drift to 7. No obvious bleeding. heparin held. s/p transfusion 9. Hypokalemia, hypomagnesemia 10. LUE DVT Recommendations Lasix therapy No BB due to hypotension, bradycardia Will arranged outpatient event monitor to guide therapy Consider outpatient referral for left atrial appendage closure. Ongoing lung optimization Follow up in our office as scheduled. Justicifation of Admission Dx: Justifications for Admission: Justification of Admission Dx: Yes JOSIAH SULTANA MD 07/30/21 1726: CARDIO Progress Notes Assessment Assessment Patient seen and examined. Agree with CORPORATE LAW SPECIALIST's assessment and plan. Acute on chronic diastolic heart failure better compensated. 2D echo showed normal LV systolic function PAF maintaining sinus rhythm. Patient is poor candidate for long-term anticoagulation. Will consider outpatient referral for left atrial appendage closure. LUCIE WARREN APRN Jul 30, 2021 13:03 JOSIAH SULTANA MD Jul 30, 2021 17:26
[2021-07-30 15:00] VITALS: BP 132/60
--- NOTE | 2021-07-30 16:29 | NUR ---
Discharge Note: MARK HERNANDEZ 6 [facility] Attempter to call report to nurse at [facility] but the person who answered said that nurse was busy. Left name & number for them to call this RN for report, have not heard back. The following instructions and handouts were given in packet to facility: discharge instructions, follow ups, med list, fall safety education, bradycardia education Discontinued lines and drains: PICC Line DL intact. [facility] at 1629. Addendum: 07/30/21 at 2009 by FRANCI FLORES RN Dressing from IVC filter on R neck removed & left FIRE PREVENTION SPECIALIST, area cleaned with ChloraPrep. Surgical dressing on R shoulder changed & cleansed before discharge. Bilateral heel dressings changed, there for protection, no open wounds, just slightly reddened. Dressing on coccyx (pressure ulcer), R elbow skin tear/abrasion, & L forearm (tiny skin tear) all changed & cleansed as well before discharge-pictures taken.
== END 2021-07-30 16:30 | DRG 492 ==
LOC: ER 06:09 → 6 SOUTH 09:18 → OBSVTOIN 23:13 → 6 SOUTH 07-24 14:16 → 1 WEST ICU 07-27 16:00 → 6 SOUTH 07-28 23:58
PROVIDERS: ADMIT Internal Medicine; ATTEND Internal Medicine
PROC: 02HV33Z Insertion of Infusion Device into Superior Vena Cava, Percutaneous Approach (ICD-10-PCS; 2021-07-19)
PROC: 0PSC04Z Reposition Right Humeral Head with Internal Fixation Device, Open Approach (ICD-10-PCS; principal; 2021-07-20 08:00)
PROC: 06H03DZ Insertion of Intraluminal Device into Inferior Vena Cava, Percutaneous Approach (ICD-10-PCS; 2021-07-28)
PROC: 30233N1 Transfusion of Nonautologous Red Blood Cells into Peripheral Vein, Percutaneous Approach (ICD-10-PCS; 2021-07-29)
DX: M80.021A Age-related osteoporosis with current pathological fracture, right humerus, initial encounter for fracture (principal); K85.90 Acute pancreatitis without necrosis or infection, unspecified; J86.9 Pyothorax without fistula; I26.99 Other pulmonary embolism without acute cor pulmonale; I50.33 Acute on chronic diastolic (congestive) heart failure; J18.9 Pneumonia, unspecified organism; J96.21 Acute and chronic respiratory failure with hypoxia; C25.9 Malignant neoplasm of pancreas, unspecified; E46 Unspecified protein-calorie malnutrition; I82.612 Acute embolism and thrombosis of superficial veins of left upper extremity; I82.622 Acute embolism and thrombosis of deep veins of left upper extremity; J94.0 Chylous effusion; M87.052 Idiopathic aseptic necrosis of left femur; N17.9 Acute kidney failure, unspecified; I48.91 Unspecified atrial fibrillation; W18.39XA Other fall on same level, initial encounter; Y93.89 Activity, other specified; Y92.89 Other specified places as the place of occurrence of the external cause; Y99.8 Other external cause status; B96.4 Proteus (mirabilis) (morganii) as the cause of diseases classified elsewhere; D64.9 Anemia, unspecified; E21.3 Hyperparathyroidism, unspecified; E78.00 Pure hypercholesterolemia, unspecified; E78.5 Hyperlipidemia, unspecified; E86.0 Dehydration; E87.6 Hypokalemia; E89.0 Postprocedural hypothyroidism; I48.0 Paroxysmal atrial fibrillation; I11.0 Hypertensive heart disease with heart failure; M15.9 Polyosteoarthritis, unspecified; N26.1 Atrophy of kidney (terminal); N30.10 Interstitial cystitis (chronic) without hematuria; R13.10 Dysphagia, unspecified; Z79.899 Other long term (current) drug therapy; Z80.2 Family history of malignant neoplasm of other respiratory and intrathoracic organs; Z82.5 Family history of asthma and other chronic lower respiratory diseases; Z86.16 Personal history of COVID-19; Z86.711 Personal history of pulmonary embolism; Z87.01 Personal history of pneumonia (recurrent); Z95.828 Presence of other vascular implants and grafts; Z88.0 Allergy status to penicillin; Z88.8 Allergy status to other drugs, medicaments and biological substances
CPT/HCPCS: 36415; 36430; 36569; 37191; 70450; 71045; 71260; 71275; 72125; 73030; 73080; 73502; 74176; 74177; 76000; 76937; 80048; 80053; 81001; 82274; 82306; 83605; 83690; 83735; 83880; 84145; 84443; 84484; 85007; 85014; 85018; 85025; 85027; 85520; 85610; 85730; 86850; 86900; 86901; 86920; 87040; 87077; 87086; 87186; 87426; 93005; 93306; 93970; 93971; 96374; 96376; A4322; A4565; A4928; A4930; A6253; A6402; C1713; C1769; C1892; C9113; G0378; G0379; J0780; J1100; J1644; J1940; J1956; J2020; J2185; J2250; J2270; J2370; J2405; J2710; J2795; J3010; J3370; J3475; J3480; J3490; J7030; J7040; J7120; P9016; Q9967; U0003; U0005; 92610-GN; 97110-GP; 97530-GO; 97530-GP; 97535-GO; 99285-25; C8929